=== PATIENT | female | born 1955 | race African-American/Black ===

== ENCOUNTER 2017-02-24 11:27 | Inpatient (IN) ==
[2017-02-24] MEDS ORDERED: METOPROLOL TARTRATE 5 MG/5 ML VIAL IV STA (11:50)
--- NOTE | 2017-02-24 12:09 | XRay Report ---
XR chest 1V portable Indication: Shortness of breath Comparison: None. Technique: Portable AP chest was performed. Findings: Heart size is normal. Pulmonary vasculature appears within normal limits. No significant abnormality of the mediastinal contours demonstrated. Bibasilar parenchymal opacities suggesting edema or atelectasis are present. Lungs are otherwise clear. Bones and soft tissues demonstrate moderately advanced bilateral glenohumeral joint degenerative changes. Impression: 1. Bibasilar parenchymal opacities suggesting edema or atelectasis are present. 2. Moderately advanced bilateral glenohumeral joint degenerative changes are present. 02/24/2017 12:05 PM PROCEDURE INTERPRETED AT [facility] DEPARTMENT OF RADIOLOGY Final Report Signed by: Dr. Moustapha Soler
[2017-02-24 12:27] LABS: Basophils % 0.7 % (0.0-0.8); Eosinophils # 0.2 10*3/uL (0.0-0.87); Eosinophils % 2.9 % (0.00-10.9); Immature Granulocytes % 0.2 %; Immature Granulocytes Absolute 0.01 #; Lymphocytes # 1.5 10*3/uL (1.4-4.0); Mean Corpuscular HGB Conc 32.5 GM/DL (32-36); Mean Corpuscular Hemoglobin 23 PG (27-34); Mean Corpuscular Volume 69.6 FL (87-102); Mean Platelet Volume 10.9 FL (9.6-12.0); Monocytes # 0.7 10*3/uL (0.11-0.8); Monocytes % 12.7 % (1.7-12.7); Neutrophils # 3.2 10*3/uL (1.4-7.4); Neutrophils % 56.5 % (38.7-73.9); Platelet Count 137 T/CUMM (130-400); Red Blood Count 5.75 MC/CUMM (3.8-5.5); Red Cell Distribution Width 17.5 % (9.3-17.3); White Blood Count 5.6 T/CUMM (4-12)
[2017-02-24 13:10] LABS: Alanine Aminotransferase 15 U/L (13-56); Albumin 3.5 G/DL (3.4-5.0); Alkaline Phosphatase 128 U/L (45-117); Aspartate Amino Transferase 9 U/L (0-37); Blood Urea Nitrogen 24 MG/DL (7-18); Calcium 9.1 MG/DL (8.5-10.1); Glucose 435 MG/DL (74-106); Sodium 132 MMOL/L (136-145); Total Protein 7.5 G/DL (6.4-8.3)
[2017-02-24 13:11] LABS: Osmolality,Calculated 286.5 MOS/KG (273-304); Potassium 4.5 MMOL/L (3.5-5.1); Troponin I Only < 0.015 NG/ML (0.00-0.045)
--- NOTE | 2017-02-24 13:23 | CT Report ---
CT head/brain wo con Indication: Unresponsive episode Comparison: None Technique: Multiple axial tomographic images of the brain were obtained without the use of intravenous contrast. Findings: Midline structures are nondisplaced. There is no convincing evidence of acute intracranial hemorrhage . Mild global volume loss present. Moderate periventricular and subcortical hypoattenuation noted which is nonspecific but consistent with chronic microvascular ischemic change. Demyelinating process and vasculitis less likely considerations. Moderate prominence of bilateral lateral and third ventricles. Atherosclerotic calcifications demonstrated. The visualized paranasal sinuses and bilateral mastoid air cells are predominantly clear. IMPRESSION: No acute intracranial hemorrhage demonstrated. There is moderate prominence of the bilateral lateral and third ventricles which could be related to central volume loss. However, clinical correlation to exclude normal pressure hydrocephalus is recommended. Moderate periventricular and subcortical hypoattenuation noted which is nonspecific but consistent with chronic microvascular ischemic change. Demyelinating process and vasculitis less likely considerations. The CT exam was performed using one or more of the following dose reduction techniques: Automated exposure control, adjustment of the mA and/or kV according to patient size, or use of iterative reconstruction technique. PROCEDURE INTERPRETED AT [facility] DEPARTMENT OF RADIOLOGY Final Report Signed by: Dr Yordy Santillan
[2017-02-24 14:09] LABS: Apearance,Urine CLOUDY (Clear); Bacteria,Urine Many /HPF (Few); Bilirubin,Urine Negative (Negative); Blood, Urine Small mg/dL (Negative); Glucose,Urine (UA) >=500 mg/dL (Negative); Ketones,Urine 5 mg/dL (Negative); Mucus,Urine Few /LPF (Occasional); Nitrite,Urine Negative (Negative); Protein,Urine 100 MG/DL; RBC,Urine 6 /HPF (0-4); Urine Color Amber (Yellow); Urine Specific Gravity 1.018 (1.001-1.035); WBC,Urine 189 /HPF (0-6)
[2017-02-24] MEDS ORDERED: LEVOFLOXACIN INJ 500 MG in PREMIX 1 EACH IV STA (14:16)
[2017-02-24] MEDS ORDERED: LEVOFLOXACIN INJ 100 ML IV ONE (14:30)
--- NOTE | 2017-02-24 14:54 | Emergency Department Note ---
Xavier Hewtit Brooke, am scribing for, and in the presence of, Juan Manuel Cifuentes MD 11:58. Esau Hewitt Phillip K, MD, personally performed the services described in this documentation, ascribed by [place] in my presence, and it is both accurate and complete 417 . Arrival - Arrival Chief Complaint: Arrhythmia/Palpitations Stated Complaint: pain ED Nursing Triage Note: Brought in per EMS from home with c/o increased heart rate and blood pressure. Reports has been out of home medications "for awhile" and was seen for the first time today by home health nurse. c/o generalized pain. Mode of Arrival: Stretcher Limitations: No Limitations Source: Patient, Family, RN Notes Reviewed - History of Present Illness HPI Narrative: Patient is a 61 year old female who presents to the ED with c/o elevated blood pressure and heart rate. Today was Patient's first day being evaluated by the home health nurse and the nurse told them to come to the ED. Her blood pressure during exam was 153/118. Patient is complaining of "pain all over" and says her heart feels like it it racing. She says she has also been short of breath and had a cough but denies having fever, nausea, vomiting, abdominal pain, or diarrhea. Patient's cough is productive but she says she has not looked at the mucous. Family member says Patient has an enlarged heart and spleen and cirrhosis of the liver. Patient was supposed to see a Studio Camera Operator, a few months ago, but Family says Patient never made the appointment. Patient has PMHx of arthritis, NIDDM, HTN, peripheral neuropathy, and dyslipidemia. She has an ulcer to the right foot that "busted" recently. Family says home health nurse did look at it. Patient is also bed ridden and has been "for a while." She is not a smoker. Date of Last Menstrual Period: PM Allergies/Adverse Reactions: Allergies Allergy/AdvReac Type Severity Reaction Status Date / Time No Known Allergies Allergy Verified 02/24/17 11:35 Home Medications: Home Medications Medication Instructions Recorded Confirmed Type Aspirin EC Tab 81 mg PO QAM 02/24/17 02/24/17 History Ferrous Sulfate 325 mg PO DAILY 02/24/17 02/24/17 History Labetalol Tab [Trandate Tab] 100 mg PO BID 02/24/17 02/24/17 History Lovastatin [Lovastatin] 10 mg PO DAILY 02/24/17 02/24/17 History Meloxicam 7.5 mg PO BID PRN 02/24/17 02/24/17 History Pregabalin [Lyrica] 75 mg PO BID 02/24/17 02/24/17 History glipiZIDE [Glipizide] 10 mg PO BIDAC 02/24/17 02/24/17 History Review of System - Review of System 12 point system: reviewed and no additional remarkable complaints except as stated - Review of System Constitutional: Absent: fever Respiratory: Present: cough (productive), other (shortness of breath). Absent: respiratory distress Cardiovascular: Present: other (elevated blood pressure and heart rate) Gastrointestinal: Absent: abdominal pain, nausea, vomiting, diarrhea Musculoskeletal: Present: other (hurting all over) Skin: Absent: rash Medical,Surgical,& Family Hx - Medical History Cardio: History of: Hypertension Psychological: History of: Anxiety Disorders Neurology: History of: Peripheral Neuropathy Endocrine: History of: Diabetes Mellitus (NIDDM), Dyslipidemia Musculoskeletal: History of: Musculoskeletal Problems (arthritis) - Social History Smoking Status: Never smoker Frequency of Alcohol Use: None Type of Drug Use: None Exam Vital Signs: Vital Signs Temperature 97.5 F L 02/24/17 11:27 Pulse Rate 90 02/24/17 11:55 Respiratory Rate 37 H 02/24/17 11:55 Blood Pressure 153/118 02/24/17 11:55 O2 Sat by Pulse Oximetry 99 02/24/17 11:55 - General General appearance: alert, in no apparent distress, obese - Head Head exam: Present: atraumatic, normocephalic - Eye Eye exam: Present: normal appearance, PERRL, EOMI - ENT ENT exam: Present: normal exam - Neck Neck exam: Present: normal inspection - Chest Chest inspection: Present: normal inspection, symmetric chest wall rise - Respiratory Respiratory exam: Present: rales (bibasilar) - Cardiovascular Cardiovascular exam: Present: normal rhythm, tachycardia, normal heart sounds - Abdominal Exam Abdominal exam: Present: soft, normal bowel sounds. Absent: distention, tenderness - Extremities Exam Extremities exam: Present: pedal edema (trace edema bilateral lower extremities) - Back Exam Back exam: Present: normal inspection - Neurological Exam Neurological exam: Present: alert, oriented X3 - Psychiatric Psychiatric exam: Present: normal affect, normal mood - Skin Skin exam: Present: warm, dry, other (blister to the lateral aspect of the right forefoot. There is currently no erythema or drainage.) Course Course Narrative: Admit to the hospitalist. Results - Labs CBC & BMP: 02/24/17 12:16 02/24/17 12:16 Lab Results: I have reviewed the patients labs Labs: Laboratory Tests 02/24/17 02/24/17 12:16 12:16 WBC 5.6 RBC 5.75 H Hgb 13.0 Hct 40.0 MCV 69.6 L MCH 23 L MCHC 32.5 RDW 17.5 H Plt Count 137 MPV 10.9 Neut % (Auto) 56.5 Lymph % (Auto) 27.0 [place] % (Auto) 12.7 Eos % (Auto) 2.9 Baso % (Auto) 0.7 Neut # (Auto) 3.2 Lymph # (Auto) 1.5 [place] # (Auto) 0.7 Eos # (Auto) 0.2 Baso # (Auto) 0.0 Immature Gran % 0.2 Nucleated RBC % 0.0 Immature Gran # 0.01 Nucleated RBCs # 0.00 Immature Plt Fraction 0.0 Magnesium 1.6 L Laboratory Tests 02/24/17 12:16 Sodium 132 L Potassium 4.5 Chloride 98 Carbon Dioxide 25 Anion Gap 13.5 BUN 24 H Creatinine 1.10 H GFR Calculation 97 BUN/Creatinine Ratio 21.00 H Glucose 435 H Calculated Osmolality 286.5 Calcium 9.1 Total Bilirubin 0.50 AST 9 ALT 15 Alkaline Phosphatase 128 H Troponin I < 0.015 Total Protein 7.5 Albumin 3.5 Globulin 4.0 H Albumin/Globulin Ratio 0.8 L TSH 3rd Generation 8.240 H Laboratory Tests 02/24/17 13:50 Urine Color Rehana Urine Appearance Cloudy Urine pH 5.0 Ur Specific [place] 1.018 Urine Protein 100 Urine Glucose (UA) >=500 Urine Ketones 5 Urine Blood Small Urine Nitrate Negative Urine Bilirubin Negative Urine Urobilinogen 2.0 H Urine Leukocytes Large H Urine RBC 6 Urine WBC 189 Urine WBC Clumps Many Urine Bacteria Many Urine Mucus Few Ur Culture Indicated? Results to follow Laboratory Tests 02/24/17 02/24/17 02/24/17 12:15 12:16 12:16 POC Glucose 411 H B-Natriuretic Peptide 18 Free T4 1.24 - Diagnostic Findings Procedure: Chest x-ray: report reviewed by me (Bibasilar parenchymal opacities suggesting edema or atelectasis are present. 2. Moderately advanced bilateral glenohumeral joint degenerative changes are present.), CT: report reviewed by me (CT head/brain wo con: No acute intracranial hemorrhage demonstrated. There is moderate prominence of the bilateral lateral and third ventricles which could be related to central volume loss. However, clinical correlation to exclude normal pressure hydrocephalus is recommended. Moderate periventricular and subcortical hypoattenuation noted which is nonspecific but consistent with chronic microvascular ischemic change. Demyelinating process and vasculitis is less likely considerations.) Disposition Clinical Impression: Poorly controlled diabetes mellitus, Urinary tract infection, Hypothyroid, Palpitations, Hypertension Case discussed with: patient Disposition: Still a Patient Condition: Guarded Additional Instructions: Admit to the hospitalist.
--- NOTE | 2017-02-24 15:38 | Hospitalist History & Physical ---
<Chapito Emmanuel - Last Filed: 02/24/17 15:18> Assessment and Plan (1) Poorly controlled diabetes mellitus Status: Acute Assessment and plan: Patient glucose levels noted at 411 at the time of admission. The patient and family reported that the patient has not had medication in several months. We will obtain hemoglobin A1c and start Accu-Cheks with sliding scale coverage. We will place the patient on a diabetic consistency diet. We will monitor closely during the clinical encounter. Current Visit: Yes (2) Urinary tract infection Status: Acute Assessment and plan: Urinalysis at the time of admission was significant for urinary tract infection. Urine culture was obtained. We will continue empiric antibiotic coverage and await urine culture results. Current Visit: Yes (3) Hypothyroidism Status: Acute Assessment and plan: TSH was noted at 8.24 and free T4 at 1.24. Upon review of the medical record, the patient has never been diagnosed with hypothyroidism. Will start low-dose Synthroid and monitor closely and adjust slowly. Current Visit: Yes Qualifiers: Hypothyroidism type: unspecified Qualified Code(s): E03.9 - Hypothyroidism , unspecified (4) Palpitations Status: Acute Assessment and plan: The patient has a previous diagnosis of cardiomegaly. Upon review of the medical record, previous encounters are noted. The family reported that the patient had been advised to follow-up at a learning program manager office however failed to make the appointment. Troponin at the time of encounter was negative less than 0.015; however the patient has multiple risk factors for cardiovascular disease. We will obtain a lipid panel, hemoglobin A1c, and echocardiogram. Current Visit: Yes (5) Hypertension Status: Chronic Assessment and plan: TSH was noted at 8.24 and free T4 at 1.24. Upon review of the medical record, the patient has never been diagnosed with hypothyroidism. Will start low-dose Synthroid and monitor closely and adjust slowly. Current Visit: Yes Qualifiers: Hypertension type: unspecified Qualified Code(s): I10 - Essential (primary ) hypertension (6) Medical non-compliance Status: Acute Assessment and plan: The family reports that the patient has not been seen by her primary care physician in months. In addition they reported that the patient has not had any of her prescribed medications in months. They reported that they were unable to secure transportation to meet scheduled appointments due to the patient's size. The patient is unable to travel in a car and they let the financial resources necessary to obtain ambulance transport. media services specialist and case management were consulted and present during the clinical interview. I discussed in great detail with both patient and family regarding the importance of medical compliance. Current Visit: Yes (7) Unable to function independently Status: Acute Assessment and plan: The family voiced concerns regarding the patient's current living situation. The patient lives with her sister however the sister works daily. The patient is basically bed ridden and unable to care for herself. I am concerned regarding the patient's current living situation. I have consulted social contact worker and case management to evaluate for possible long term placement at the time of discharge. I do not believe that the patient will be a candidate for rehabilitation. The family is in agreement with placement at the time of discharge. Current Visit: Yes (8) Diabetic ulcer of right foot Status: Acute Assessment and plan: Ulceration noted to the lower aspect of the right foot; with deep discoloration noted. We will consult surgery to evaluate Current Visit: Yes Qualifiers: Diabetic foot ulcer location: midfoot Diabetes mellitus type: type 2 Non- pressure ulcer stage: unspecified non-pressure ulcer stage Qualified Code(s): E11.621 - Type 2 diabetes mellitus with foot ulcer; L97.419 - Non-pressure chronic ulcer of right heel and midfoot with unspecified severity History of Present Illness Chief complaint: Arrhythmia and palpitations History of present illness: This is a very poor and unfortunate 61-year-old female that presented to the ED at [facility] by EMS for the evaluation of arrhythmias and palpitations. The patient has a long and complex medical significant for type 2 diabetes mellitus, cardiomegaly, hypertension, chronic falls, hyperlipidemia, morbid obesity, chronic neck pain, splenomegaly, cirrhosis of the liver, peripheral neuropathy, and anemia. Patient reported no significant surgical history at the time of encounter. Apparently, the patient was evaluated today by a home health nurse. The patient was assessed and was advised to present to the ED. At the time of ED presentation, the patient was grossly hypertensive with a blood pressure noted at 153/118. The family was present at bedside. They reported that the patient is bedridden and had not been seen by her primary care physician and months. In addition, the patient's family reported that the patient has not had medications in several weeks. The patient reports generalized discomfort and heart palpitations. In addition, the patient was noted to have an ulceration to her right foot in which the home health care nurse assessed today. The patient was seen and assessed at the time of ED presentation. At the time of ED presentation, the patient was noted to be grossly hypertensive with a blood pressure noted at 153/118. In addition, the patient was noted to be hyperglycemic with a blood glucose level of 411. Labs were obtained which were remarkable for red blood cell count of 5.75, magnesium 1.6, sodium 132, BUN 24, creatinine 1.10, glucose 435, calcium 9.1, alkaline phosphatase 128, and TSH 8.240. Urinalysis reported gross abnormalities urine leukocytes were large, white blood cell counts were noted at 6, urine WBCs 189, urine WC clumps many, urine bacteria many, urine mucus few. BNP was noted at 18 and free T4 1.24. Chest x-ray reported bibasilar parenchymal opacity suggesting edema or atelectasis and moderately advanced bilateral glenohumeral joint degenerative changes are present. CT head and brain reported no acute intracranial hemorrhage however there was a moderate prominence of the bilateral lateral and third ventricles which could be related to central volume loss. Incidentally, moderate periventricular and subtle cortical hypoattenuation is noted which is nonspecific but consistent with chronic microvascular ischemic change. After brief discussion with both Dr. Cifuentes and Dr. Escobar, the patient will be admitted to the hospitalist service for continuation of care. The patient's home medications have been reviewed and reconciled. CODE STATUS discussed; patient is a FULL CODE. Home Medications Medication Instructions Recorded Confirmed Type Aspirin EC Tab 81 mg PO QAM 02/24/17 02/24/17 History Ferrous Sulfate 325 mg PO DAILY 02/24/17 02/24/17 History Labetalol Tab [Trandate Tab] 100 mg PO BID 02/24/17 02/24/17 History Lovastatin [Lovastatin] 10 mg PO DAILY 02/24/17 02/24/17 History Meloxicam 7.5 mg PO BID PRN 02/24/17 02/24/17 History Pregabalin [Lyrica] 75 mg PO BID 02/24/17 02/24/17 History glipiZIDE [Glipizide] 10 mg PO BIDAC 02/24/17 02/24/17 History Allergies Allergy/AdvReac Type Severity Reaction Status Date / Time No Known Allergies Allergy Verified 02/24/17 11:35 Medical,Surgical,& Family Hx - Medical History Cardio: History of: Hypertension Psychological: History of: Anxiety Disorders Neurology: History of: Peripheral Neuropathy Endocrine: History of: Diabetes Mellitus (NIDDM), Dyslipidemia Musculoskeletal: History of: Musculoskeletal Problems (arthritis) - Social History Smoking Status: Never smoker Frequency of Alcohol Use: None Type of Drug Use: None Exam - Constitutional Vitals: Period Temp Pulse Resp BP Sys/Meadows Pulse Ox Last 24 Hr 97.5 F-97.5 F 90-136 24-37 153-153/118-118 96-99 General appearance: morbidly obese - Head Head exam: Present: normal inspection, normocephalic - Eye Eye exam: Present: EOMI Pupils: Present: MACI, normal accommodation - ENT ENT exam: Present: normal exam, normal external ear exam - Neck Neck exam: Present: normal inspection. Absent: lymphadenopathy, meningismus, thyromegaly - Respiratory Respiratory exam: Present: rales - Cardiovascular Cardiovascular exam: Present: tachycardia. Absent: carotid bruit, diastolic murmur, gallop, JVD, rubs, systolic murmur - GI/Abdominal GI/Abdominal exam: Present: normal bowel sounds, soft - Extremities Exam Extremities exam: Present: edema (+2 edema noted to bilateral lower extremity), other (Ulceration noted to the lateral aspect of the right foot) - Back Exam Back exam: Present: normal inspection - Neurological Exam Neurological exam: Present: alert, oriented X3, CN II-XII intact - Psychiatric Psychiatric exam: Present: flat affect - Skin Skin exam: Present: normal color, warm, dry Results - Labs CBC & BMP: 02/24/17 12:16 02/24/17 12:16 Lab Results: I have reviewed the past 24 hour labs <Abelardo Escobar - Last Filed: 02/24/17 16:49> History of Present Illness History of present illness: Ms. Hooker is a 61 year old female admitted to the hospital with diabetes mellitus with hyperglycemia, urinary tract infection, hypertension, morbid obesity, and home bedridden status. I have interviewed the patient, examined the patient, and reviewed all of the available laboratory tests and x-ray results. I agree with the assessment and plans as described by the nurse practitioner. Social service has been consulted for recommended intermediate placement. Exam - Constitutional Vitals: Period Temp Pulse Resp BP Sys/[place]ows Pulse Ox Last 24 Hr 97.5 F-97.5 F 90-136 24-37 153-153/118-118 96-99 Results - Labs CBC & BMP: 02/24/17 12:16 02/24/17 12:16
[2017-02-24] MEDS ORDERED: DEXTROSE 50% 25 GM/50 ML VIAL IV PRN ×2 (15:57)
[2017-02-24] MEDS ORDERED: GLUCAGON 1 MG VIAL IM PRN ×2 (15:57)
[2017-02-24] MEDS ORDERED: MAGNESIUM SULF RIDER 4 GM in PREMIX 1 EACH IV PRN (15:59)
[2017-02-24] MEDS ORDERED: MAGNESIUM SULF RIDER 2 GM in PREMIX 1 EACH IV PRN (15:59)
[2017-02-24] MEDS ORDERED: POTASSIUM CHLORIDE RIDER 10 MEQ in PREMIX 1 EACH IV PRN (15:59)
[2017-02-24 16:24] LABS: Risk Ratio 6.25; VLDL CHOLESTEROL 35.6 MG/DL
--- NOTE | 2017-02-24 16:42 | EKG Report ---
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
[2017-02-24 17:57] LABS: Albumin 3.5 G/DL (3.4-5.0); Bilirubin,Direct 0.1 MG/DL (0.0-0.20); Bilirubin,Indirect 0.4 MG/DL (0.0-1.0); Bilirubin,Total 0.5 MG/DL (0.2-1.0); Total Protein 7.6 G/DL (6.4-8.3)
[2017-02-24] MEDS: PIPERACILLIN/TAZOBACTAM 3,375 MG in SODIUM CHLORIDE 0.9% 100 ML IV SCH (18:39)
[2017-02-24] MEDS: LOVASTATIN 20 MG TABLET PO SCH (18:40)
[2017-02-24] MEDS: INSULIN REGULAR 100 UNIT/ML SUBCUT SCH ×2 (18:56→20:41)
[2017-02-24] MEDS: LABETALOL 100 MG TABLET PO SCH (20:40)
[2017-02-24] MEDS ORDERED: DEXTROSE 50% 25 GM/50 ML SYRINGE IV PRN (22:30)
[2017-02-24] MEDS ORDERED: ZALEPLON 5 MG CAPSULE PO PRN (22:43)
[2017-02-24] MEDS: IBUPROFEN 600 MG TABLET PO PRN (22:51)
[2017-02-25] MEDS: PIPERACILLIN/TAZOBACTAM 3,375 MG in SODIUM CHLORIDE 0.9% 100 ML IV SCH ×3 (02:50→16:41)
[2017-02-25] MEDS: INSULIN REGULAR 100 UNIT/ML SUBCUT SCH ×4 (09:26→21:35)
[2017-02-25] MEDS: LABETALOL 100 MG TABLET PO SCH ×2 (09:26→21:34)
[2017-02-25] MEDS: LEVOFLOXACIN INJ 500 MG in PREMIX 1 EACH IV SCH (09:27)
[2017-02-25] MEDS: IBUPROFEN 600 MG TABLET PO PRN ×2 (09:31→23:17)
--- NOTE | 2017-02-25 13:13 | General Surgery Consult Note ---
Assessment and Plan - Time spent with patient Time spent with patient: Greater than 30 minutes (1) Poorly controlled diabetes mellitus Status: Acute Assessment and plan: 61-year-old -[place] female with multiple medical problems admitted by the hospitalist on 02/24/2017 with dysrhythmia and palpitations with UTI. Patient is unable to ambulate and has been noncompliant with her medications. Patient has a diabetic foot wound on her lateral right foot and in between the fourth and fifth toes. There is no signs of infection and no need for surgery at this time. Will consult Dorota WCJuliana for local wound care. Dr. Gonsales will see and examine patient and further recommendations to follow. Current Visit: Yes (2) Urinary tract infection Status: Acute Current Visit: Yes (3) Hypothyroidism Status: Acute Current Visit: Yes Qualifiers: Hypothyroidism type: unspecified Qualified Code(s): E03.9 - Hypothyroidism , unspecified (4) Palpitations Status: Acute Current Visit: Yes (5) Hypertension Status: Chronic Current Visit: Yes Qualifiers: Hypertension type: unspecified Qualified Code(s): I10 - Essential (primary ) hypertension (6) Medical non-compliance Status: Acute Current Visit: Yes (7) Unable to function independently Status: Acute Current Visit: Yes (8) Diabetic ulcer of right foot Status: Acute Current Visit: Yes Qualifiers: Diabetic foot ulcer location: midfoot Diabetes mellitus type: type 2 Non- pressure ulcer stage: unspecified non-pressure ulcer stage Qualified Code(s): E11.621 - Type 2 diabetes mellitus with foot ulcer; L97.419 - Non-pressure chronic ulcer of right heel and midfoot with unspecified severity History of Present Illness Chief complaint: Right foot pain History of present illness: Ms. Hooker is a 61 year old -[place] female with multiple medical problems and noncompliance with medications admitted by the hospitalist service on 02/24/2017 with arrhythmias and palpitations and UTI. Patient has been bedridden and was being evaluated by her home health nurse and found to be grossly hypertensive. Patient's family reporting that patient has not followed up with her primary care physician in months and she has ran out of all of her medications and not renewed them. She is being evaluated for prison status. Dr. Gonsales was consulted for a diabetic foot wound on her right lateral foot. Upon exam she has what appears to be an old blister on the lateral foot and in between the fourth and fifth toes with a little discoloration. There is no erythema or tenderness or no signs of infection. She does have diminished pulses. Home Medications Medication Instructions Recorded Confirmed Type Aspirin EC Tab 81 mg PO QAM 02/24/17 02/24/17 History Ferrous Sulfate 325 mg PO DAILY 02/24/17 02/24/17 History Labetalol Tab [Trandate Tab] 100 mg PO BID 02/24/17 02/24/17 History Lovastatin [Lovastatin] 10 mg PO DAILY 02/24/17 02/24/17 History Meloxicam 7.5 mg PO BID PRN 02/24/17 02/24/17 History Pregabalin [Lyrica] 75 mg PO BID 02/24/17 02/24/17 History glipiZIDE [Glipizide] 10 mg PO BIDAC 02/24/17 02/24/17 History Allergies Allergy/AdvReac Type Severity Reaction Status Date / Time No Known Allergies Allergy Verified 02/24/17 11:35 Medical,Surgical,& Family Hx - Medical History Cardio: History of: Hypertension Psychological: History of: Anxiety Disorders Neurology: History of: Peripheral Neuropathy Endocrine: History of: Diabetes Mellitus (NIDDM), Dyslipidemia Musculoskeletal: History of: Musculoskeletal Problems (arthritis) - Social History Smoking Status: Never smoker Frequency of Alcohol Use: None Type of Drug Use: None - Constitutional Constitutional: Present: as per HPI Exam - Constitutional Vitals: Period Temp Pulse Resp BP Sys/Meadows Pulse Ox Last 24 Hr 96.4 F-98.3 F 81-124 20-24 113-176/55-136 94-100 Exam: 61-year-old -[place] female, no acute distress, alert oriented Chest clear CV regular rate and rhythm Abdomen obese, nontender Extremities right lateral foot with healing diabetic foot wound with some mild discoloration that extends up in between the fourth and fifth toes. No erythema , no purulence, or induration. Diminished pulses Results - Labs CBC & BMP: 02/24/17 12:16 02/24/17 12:16 Lab Results: I have reviewed the past 24 hour labs
[2017-02-25] MEDS ORDERED: SKIN HEALING OINT (AQUAPHOR) 50 GM TUBE TOP PRN (15:49)
[2017-02-25] MEDS: LOVASTATIN 20 MG TABLET PO SCH (16:41)
--- NOTE | 2017-02-25 19:56 | ECHO Report ---
Maegan Hooker Exam Date: 02/25/2017 09:11 Referring Physician: Technologist: Anika Kim RDCS Age: 61 Ht (in): 66 Wt (lb): 400 Gender: F Exam Location: [facility] Echo Indications: Cardiac arrhythmia, unspecified, Palpitations, NIDDM, UTI, Essential (primary) hypertension, Morbid (severe) obesity due to excess calories, Cardiomegaly, Diabetic ulcer - right foot, Hyperlipidemia, unspecified BP: 150 / 118 HR: 92 Rhythm: Sinus Technical Quality: IMPRESSIONS Normal left ventricular cavity size. Mild concentric left ventricular hypertrophy. Normal systolic function, left ventricular ejection fraction estimated at 60%. Grade 1 diastolic dysfunction. Mild biatrial enlargement. Mild right ventricular enlargement, with normal systolic function. No significant valvular abnormalities. MEASUREMENTS (Male / Female) Normal Values 2D ECHO LV Diastolic Diameter PLAX 4.1 cm 4.2 - 5.9 / 3.9 - 5.3 cm LV Systolic Diameter PLAX 2.7 cm LV Fractional Shortening PLAX 34.4 % IVS Diastolic Thickness 1.1 cm 0.6 - 1.0 / 0.6 - 0.9 cm LVPW Diastolic Thickness 1.1 cm 0.6 - 1.0 / 0.6 - 0.9 cm RV Internal Dim ED PLAX 2.7 cm Aortic Root Diameter 2.7 cm LA Systolic Diameter LX 3.9 cm 3.0 - 4.0 / 2.7 - 3.8 cm DOPPLER TR Peak Velocity 194.0 cm/s TR Peak Gradient 15.1 mmHg FINDINGS Left Ventricle Normal left ventricular cavity size. Mild concentric left ventricular hypertrophy. Normal systolic function, left ventricular ejection fraction estimated at 60%. Grade 1 diastolic dysfunction. Right Ventricle The right ventricle is mildly dilated, with normal systolic function. Right Atrium The right atrium is mildly enlarged. Left Atrium The left atrium is mildly enlarged. Mitral Valve Morphologically normal mitral valve without significant stenosis or prolapse. There is no mitral regurgitation. Aortic Valve Morphologically normal aortic valve without significant sclerosis or stenosis. There is no aortic regurgitation. Tricuspid Valve Morphologically normal tricuspid valve. Trace tricuspid valve regurgitation. Normal pulmonary pressure. Pulmonic Valve Morphologically normal pulmonic valve without significant stenosis. There is no pulmonic regurgitation. Pericardium Normal pericardium without effusion. Prominent epicardial fat. Aorta Normal ascending aorta dimension. Brandon Reilly (Electronically Signed) Final Date: 25 February 2017 19:55
[2017-02-26] MEDS: PIPERACILLIN/TAZOBACTAM 3,375 MG in SODIUM CHLORIDE 0.9% 100 ML IV SCH ×3 (02:15→17:03)
--- NOTE | 2017-02-26 08:44 | Case Mgmt Physician Query Form ---
TB Signs and Symptoms Screening ([place]) INSTRUCTIONS: To be completed annually on residents/staff with a significant Tuberculin Skin Test (TST) upon admission/hire or a prior significant TST. To be completed on all staff at hire. Please respond to each listed symptom with an (X) in either the "YES" or "NO" box. Do you currently have any of the following symptoms: YES NO ( ) ( x) A cough If yes, is it: ( ) Productive ( ) Non- productive ( ) (x ) Hemoptysis (spitting up blood) ( ) (x ) Chest pains ( ) ( x) Weight Loss ( ) (x ) Fever ( ) (x ) Night Sweats ( ) ( x) Weakness ( ) (x ) Loss of Appetite ( ) ( x) Difficulty Breathing If you answered YES" to any of the above questions, how long have symptoms been present? Comments: PJ
[2017-02-26] MEDS: LEVOFLOXACIN INJ 500 MG in PREMIX 1 EACH IV SCH (09:31)
[2017-02-26] MEDS: LABETALOL 100 MG TABLET PO SCH ×2 (09:31→20:40)
[2017-02-26] MEDS: INSULIN REGULAR 100 UNIT/ML SUBCUT SCH ×4 (09:31→20:40)
--- NOTE | 2017-02-26 09:55 | Hospitalist Progress Note ---
Assessment and Plan - Time spent with patient Time spent with patient: Greater than 30 minutes (Pt is new to me. Chart reviewed by me today.) (1) Urinary tract infection Status: Acute Assessment and plan: Continue IV levaquin and Zosyn, f/u urine culture results Current Visit: Yes (2) Poorly controlled diabetes mellitus Status: Acute Assessment and plan: Consult dietitian., Continue insulin. f/u HbA1c result Current Visit: Yes (3) Hypothyroidism Status: Acute Assessment and plan: Continue synthroid. Need Endocrinology appointment in the nearly future. Current Visit: Yes Qualifiers: Hypothyroidism type: unspecified Qualified Code(s): E03.9 - Hypothyroidism , unspecified (4) Hypertension Status: Chronic Current Visit: Yes Qualifiers: Hypertension type: unspecified Qualified Code(s): I10 - Essential (primary ) hypertension (5) Medical non-compliance Status: Acute Assessment and plan: Educated pt on being compliant with her medical treatment regimen. Current Visit: Yes (6) Unable to function independently Status: Acute Current Visit: Yes (7) Diabetic ulcer of right foot Status: Acute Assessment and plan: Continue local wound care. Current Visit: Yes Qualifiers: Diabetic foot ulcer location: midfoot Diabetes mellitus type: type 2 Non- pressure ulcer stage: unspecified non-pressure ulcer stage Qualified Code(s): E11.621 - Type 2 diabetes mellitus with foot ulcer; L97.419 - Non-pressure chronic ulcer of right heel and midfoot with unspecified severity Hospitalist: Subjective Interval history: No overnight acute event. Feeling better. On IV antibiotics for UTI, insulin sliding scale for poorly controlled DM, Synthroid for Hypothyroidism. Educated pt on being compliant with her medical treatment regimen. GS signed off for diabetic ulcer of right foot. Exam - Constitutional Vitals: Period Temp Pulse Resp BP Sys/Meadows Pulse Ox Last 24 Hr 96.2 F-98.3 F 78-98 20-22 113-134/54-78 93-98 Exam: General: lying in bed supine. AAOx3. HEENT: AT NC EOMI PERRLA Normal lips and gum. Lungs: B/L CTA Abd: +BS NT ND Skin: Diabetic foot ulcer on lateral right foot in between 4th and 5th toes. Neuro: AAOx3 Results - Labs CBC & BMP: 02/24/17 12:16 02/24/17 12:16
[2017-02-26] MEDS: IBUPROFEN 600 MG TABLET PO PRN ×2 (11:02→17:03)
--- NOTE | 2017-02-26 11:53 | Hospitalist Progress Note ---
Assessment and Plan - Time spent with patient Time spent with patient: Greater than 30 minutes (1) Acute cystitis with hematuria Status: Acute Assessment and plan: Still has lower abd tenderness. Will need to initiate CT study for cause of acute cystitis. ?stone, ?PID. Continue IV antibiotics for now. Need to wait for culture result to adjust antibiotics usage. Culture result is not ready yet. Current Visit: Yes (2) Poorly controlled diabetes mellitus Status: Acute Assessment and plan: Consult dietitian., Continue insulin. f/u HbA1c result Need to adjust insulin dosage to control hyperglycemia. Pt is at high risk of developing hyperosmolar hyperglycemia coma. Pt is also at high risk of readmitting to hospital. Need intense DM treatment and education to be done prior to discharge. Current Visit: Yes (3) Hypothyroidism Status: Acute Assessment and plan: Continue synthroid. Need Endocrinology appointment in the nearly future. Current Visit: Yes Qualifiers: Hypothyroidism type: unspecified Qualified Code(s): E03.9 - Hypothyroidism , unspecified (4) Hypertension Status: Chronic Current Visit: Yes Qualifiers: Hypertension type: unspecified Qualified Code(s): I10 - Essential (primary ) hypertension (5) Medical non-compliance Status: Acute Assessment and plan: Educated pt on being compliant with her medical treatment regimen. Current Visit: Yes (6) Unable to function independently Status: Acute Assessment and plan: PT eval. May need image study to identify the etiology. If still no improvement, will need to consult Neurology. Current Visit: Yes (7) Diabetic ulcer of right foot Status: Acute Assessment and plan: Continue local wound care. Current Visit: Yes Qualifiers: Diabetic foot ulcer location: midfoot Diabetes mellitus type: type 2 Non- pressure ulcer stage: unspecified non-pressure ulcer stage Qualified Code(s): E11.621 - Type 2 diabetes mellitus with foot ulcer; L97.419 - Non-pressure chronic ulcer of right heel and midfoot with unspecified severity Hospitalist: Subjective Interval history: No overnight acute event. Feeling better. But still has abd pain especially lower abd pain. Pt aslo feel weak and not able to ambulate. On IV antibiotics for UTI, insulin sliding scale for poorly controlled DM, Synthroid for Hypothyroidism. Educated pt on being compliant with her medical treatment regimen. GS signed off for diabetic ulcer of right foot. Glucose level is 400 this morning. UA showed UTI and culture results pending. Exam - Constitutional Vitals: Period Temp Pulse Resp BP Sys/Meadows Pulse Ox Last 24 Hr 96.2 F-98.3 F 78-98 20-22 113-134/54-78 93-98 Exam: General: lying in bed supine. AAOx3. HEENT: AT NC EOMI PERRLA Normal lips and gum. Lungs: B/L CTA Abd: +BS ND, tenderness at lower abd area. Skin: Diabetic foot ulcer on lateral right foot in between 4th and 5th toes. Neuro: AAOx3 Results - Labs CBC & BMP: 02/24/17 12:16 02/24/17 12:16
[2017-02-26] MEDS ORDERED: TUBERCULIN SKIN TEST 0.1 ML SYRINGE INTRADERM ONE (12:00)
[2017-02-26] MEDS: LOVASTATIN 20 MG TABLET PO SCH (17:03)
[2017-02-27] MEDS: PIPERACILLIN/TAZOBACTAM 3,375 MG in SODIUM CHLORIDE 0.9% 100 ML IV SCH ×3 (00:12→17:23)
[2017-02-27] MEDS: IBUPROFEN 600 MG TABLET PO PRN ×3 (00:20→17:39)
[2017-02-27] MEDS: LABETALOL 100 MG TABLET PO SCH ×2 (08:49→21:32)
[2017-02-27] MEDS: INSULIN REGULAR 100 UNIT/ML SUBCUT SCH ×4 (08:49→21:33)
--- NOTE | 2017-02-27 09:09 | Hospitalist Progress Note ---
<Chapito Emmanuel - Last Filed: 02/27/17 09:06> Assessment and Plan (1) Poorly controlled diabetes mellitus Status: Acute Assessment and plan: Patient glucose levels noted at 411 at the time of admission. The patient and family reported that the patient has not had medication in several months. We will obtain hemoglobin A1c and start Accu-Cheks with sliding scale coverage. We will place the patient on a diabetic consistency diet. We will monitor closely during the clinical encounter. 02/27-hemoglobin A1c was noted at 11.3. The patient's blood glucose levels are poorly controlled. We will start Lantus 25 units nightly and start Humalog 10 units 3 times daily with each meal. We will monitor blood glucose levels closely and adjust as needed. Current Visit: Yes (2) Urinary tract infection Status: Acute Assessment and plan: Urinalysis at the time of admission was significant for urinary tract infection. Urine culture was obtained. We will continue empiric antibiotic coverage and await urine culture results. 02/27-culture and sensitivity reported E. coli which is sensitive to Zosyn. We will continue Zosyn as previously ordered. Current Visit: Yes (3) Hypothyroidism Status: Acute Assessment and plan: TSH was noted at 8.24 and free T4 at 1.24. Upon review of the medical record, the patient has never been diagnosed with hypothyroidism. Will start low-dose Synthroid and monitor closely and adjust slowly. Current Visit: Yes Qualifiers: Hypothyroidism type: unspecified Qualified Code(s): E03.9 - Hypothyroidism , unspecified (4) Palpitations Status: Acute Assessment and plan: The patient has a previous diagnosis of cardiomegaly. Upon review of the medical record, previous encounters are noted. The family reported that the patient had been advised to follow-up at a sole stapler welt office however failed to make the appointment. Troponin at the time of encounter was negative less than 0.015; however the patient has multiple risk factors for cardiovascular disease. We will obtain a lipid panel, hemoglobin A1c, and echocardiogram. Current Visit: Yes (5) Hypertension Status: Chronic Assessment and plan: TSH was noted at 8.24 and free T4 at 1.24. Upon review of the medical record, the patient has never been diagnosed with hypothyroidism. Will start low-dose Synthroid and monitor closely and adjust slowly. Current Visit: Yes Qualifiers: Hypertension type: unspecified Qualified Code(s): I10 - Essential (primary ) hypertension (6) Medical non-compliance Status: Acute Assessment and plan: The family reports that the patient has not been seen by her primary care physician in months. In addition they reported that the patient has not had any of her prescribed medications in months. They reported that they were unable to secure transportation to meet scheduled appointments due to the patient's size. The patient is unable to travel in a car and they let the financial resources necessary to obtain ambulance transport. patient services specialist and case management were consulted and present during the clinical interview. I discussed in great detail with both patient and family regarding the importance of medical compliance. Current Visit: Yes (7) Unable to function independently Status: Acute Assessment and plan: The family voiced concerns regarding the patient's current living situation. The patient lives with her sister however the sister works daily. The patient is basically bed ridden and unable to care for herself. I am concerned regarding the patient's current living situation. I have consulted social services assistant and case management to evaluate for possible care home placement at the time of discharge. I do not believe that the patient will be a candidate for rehabilitation. The family is in agreement with placement at the time of discharge. Current Visit: Yes (8) Diabetic ulcer of right foot Status: Acute Assessment and plan: Ulceration noted to the lower aspect of the right foot; with deep discoloration noted. We will consult surgery to evaluate 02/27-wound care in progress per surgery recommendation. Current Visit: Yes Qualifiers: Diabetic foot ulcer location: midfoot Diabetes mellitus type: type 2 Non- pressure ulcer stage: unspecified non-pressure ulcer stage Qualified Code(s): E11.621 - Type 2 diabetes mellitus with foot ulcer; L97.419 - Non-pressure chronic ulcer of right heel and midfoot with unspecified severity Hospitalist: Subjective Interval history: Patient seen and examined; chart reviewed. No significant overnight events. We will consult case management for swing bed or long-term placement. Exam - Constitutional Vitals: Period Temp Pulse Resp BP Sys/Meadows Pulse Ox Last 24 Hr 96.6 F-98.2 F 81-99 20-22 133-143/60-89 94-98 General appearance: morbidly obese - Head Head exam: Present: normal inspection, normocephalic - Eye Eye exam: Present: EOMI, conjunctival injection Pupils: Present: MACI, normal accommodation - ENT ENT exam: Present: normal exam, normal external ear exam, normal oropharynx - Neck Neck exam: Present: normal inspection. Absent: lymphadenopathy, meningismus, thyromegaly - Respiratory Respiratory exam: Present: clear to auscultation bilaterally. Absent: rales, rhonchi, stridor, wheezes - Cardiovascular Cardiovascular exam: Present: regular rate and rhythm. Absent: carotid bruit, diastolic murmur, gallop, JVD, rubs, systolic murmur - GI/Abdominal GI/Abdominal exam: Present: normal bowel sounds, soft - Extremities Exam Extremities exam: Present: normal inspection, normal capillary refill, edema (+ 2 edema noted to bilateral lower extremity.) - Back Exam Back exam: Present: normal inspection - Neurological Exam Neurological exam: Present: alert, oriented X3, CN II-XII intact - Psychiatric Psychiatric exam: Present: depressed - Skin Skin exam: Present: normal color, warm, dry Results - Labs CBC & BMP: 02/24/17 12:16 02/24/17 12:16 Lab Results: I have reviewed the past 24 hour labs <Abelardo Escobar - Last Filed: 02/28/17 07:10> Hospitalist: Subjective Interval history: I agree with the assessment and plans as outlined by the nurse practitioner. I have seen and examined the patient today. I have reviewed all pertinent laboratory test results. Exam - Constitutional Vitals: Period Temp Pulse Resp BP Sys/Meadows Pulse Ox Last 24 Hr 96.9 F-978.4 F 82-97 20-22 126-144/65-91 93-99 Results - Labs CBC & BMP: 02/28/17 02:58 02/28/17 02:58
[2017-02-27] MEDS: INSULIN LISPRO 100 UNIT/ML SUBCUT SCH ×2 (12:21→17:24)
[2017-02-27] MEDS: LOVASTATIN 20 MG TABLET PO SCH (17:23)
[2017-02-27] MEDS ORDERED: INSULIN GLARGINE 100 UNIT/ML SUBCUT SCH (21:00)
[2017-02-28] MEDS: IBUPROFEN 600 MG TABLET PO PRN ×2 (01:10→09:04)
[2017-02-28] MEDS: PIPERACILLIN/TAZOBACTAM 3,375 MG in SODIUM CHLORIDE 0.9% 100 ML IV SCH ×3 (01:12→16:50)
[2017-02-28 03:16] LABS: Basophils % 0.6 % (0.0-0.8); Eosinophils # 0.2 10*3/uL (0.0-0.87); Eosinophils % 6.4 % (0.00-10.9); Hematocrit 32.9 VOL% (35.7-47.0); Hemoglobin 10.3 GM/DL (12.0-16.0); Immature Granulocytes % 0.3 %; Immature Granulocytes Absolute 0.01 #; Lymphocytes # 1.1 10*3/uL (1.4-4.0); Lymphocytes % 30.6 % (21.3-54.2); Mean Corpuscular HGB Conc 31.3 GM/DL (32-36); Mean Corpuscular Hemoglobin 23 PG (27-34); Mean Corpuscular Volume 71.8 FL (87-102); Mean Platelet Volume 11.3 FL (9.6-12.0); Monocytes # 0.5 10*3/uL (0.11-0.8); Monocytes % 13.4 % (1.7-12.7); Neutrophils # 1.7 10*3/uL (1.4-7.4); Neutrophils % 48.7 % (38.7-73.9); Platelet Count 114 T/CUMM (130-400); Red Blood Count 4.58 MC/CUMM (3.8-5.5); Red Cell Distribution Width 17.5 % (9.3-17.3); White Blood Count 3.4 T/CUMM (4-12)
[2017-02-28 03:47] LABS: Albumin 2.8 G/DL (3.4-5.0); Bilirubin,Total 0.5 MG/DL (0.2-1.0); Calcium 8.6 MG/DL (8.5-10.1); Magnesium 1.9 MG/DL (1.8-2.4); Osmolality,Calculated 289.7 MOS/KG (273-304); Phosphorous 4.6 MG/DL (2.5-4.9); Potassium 4.3 MMOL/L (3.5-5.1); Total Protein 6.2 G/DL (6.4-8.3)
[2017-02-28] MEDS: LEVOTHYROXINE 50 MCG TABLET PO SCH (09:03)
[2017-02-28] MEDS: LABETALOL 100 MG TABLET PO SCH ×2 (09:04→21:18)
[2017-02-28] MEDS: INSULIN LISPRO 100 UNIT/ML SUBCUT SCH ×3 (09:07→16:50)
[2017-02-28] MEDS: INSULIN REGULAR 100 UNIT/ML SUBCUT SCH ×4 (09:08→21:18)
--- NOTE | 2017-02-28 09:44 | Hospitalist Progress Note ---
<Chapito Emmanuel - Last Filed: 02/28/17 09:42> Assessment and Plan (1) Poorly controlled diabetes mellitus Status: Acute Assessment and plan: Patient glucose levels noted at 411 at the time of admission. The patient and family reported that the patient has not had medication in several months. We will obtain hemoglobin A1c and start Accu-Cheks with sliding scale coverage. We will place the patient on a diabetic consistency diet. We will monitor closely during the clinical encounter. 02/27-hemoglobin A1c was noted at 11.3. The patient's blood glucose levels are poorly controlled. We will start Lantus 25 units nightly and start Humalog 10 units 3 times daily with each meal. We will monitor blood glucose levels closely and adjust as needed. 02/28-blood glucose levels remain markedly elevated despite the start of Lantus and Humalog on yesterday. We will increase Lantus to 40 units at the hour of sleep and continue Humalog 3 times daily with each meal. Spoke with both patient and family regarding the need to adhere to dietary restrictions in order to obtain optimal blood glucose levels. Current Visit: Yes (2) Urinary tract infection Status: Acute Assessment and plan: Urinalysis at the time of admission was significant for urinary tract infection. Urine culture was obtained. We will continue empiric antibiotic coverage and await urine culture results. 02/27-culture and sensitivity reported E. coli which is sensitive to Zosyn. We will continue Zosyn as previously ordered. Current Visit: Yes (3) Hypothyroidism Status: Acute Assessment and plan: TSH was noted at 8.24 and free T4 at 1.24. Upon review of the medical record, the patient has never been diagnosed with hypothyroidism. Will start low-dose Synthroid and monitor closely and adjust slowly. Current Visit: Yes Qualifiers: Hypothyroidism type: unspecified Qualified Code(s): E03.9 - Hypothyroidism , unspecified (4) Palpitations Status: Acute Assessment and plan: The patient has a previous diagnosis of cardiomegaly. Upon review of the medical record, previous encounters are noted. The family reported that the patient had been advised to follow-up at a old testament professor office however failed to make the appointment. Troponin at the time of encounter was negative less than 0.015; however the patient has multiple risk factors for cardiovascular disease. We will obtain a lipid panel, hemoglobin A1c, and echocardiogram. Current Visit: Yes (5) Hypertension Status: Chronic Assessment and plan: TSH was noted at 8.24 and free T4 at 1.24. Upon review of the medical record, the patient has never been diagnosed with hypothyroidism. Will start low-dose Synthroid and monitor closely and adjust slowly. Current Visit: Yes Qualifiers: Hypertension type: unspecified Qualified Code(s): I10 - Essential (primary ) hypertension (6) Medical non-compliance Status: Acute Assessment and plan: The family reports that the patient has not been seen by her primary care physician in months. In addition they reported that the patient has not had any of her prescribed medications in months. They reported that they were unable to secure transportation to meet scheduled appointments due to the patient's size. The patient is unable to travel in a car and they let the financial resources necessary to obtain ambulance transport. business services representative and case management were consulted and present during the clinical interview. I discussed in great detail with both patient and family regarding the importance of medical compliance. Current Visit: Yes (7) Unable to function independently Status: Acute Assessment and plan: The family voiced concerns regarding the patient's current living situation. The patient lives with her sister however the sister works daily. The patient is basically bed ridden and unable to care for herself. I am concerned regarding the patient's current living situation. I have consulted social insurance analyst and case management to evaluate for possible [facility] placement at the time of discharge. I do not believe that the patient will be a candidate for rehabilitation. The family is in agreement with placement at the time of discharge. Current Visit: Yes (8) Diabetic ulcer of right foot Status: Acute Assessment and plan: Ulceration noted to the lower aspect of the right foot; with deep discoloration noted. We will consult surgery to evaluate 02/27-wound care in progress per surgery recommendation. Current Visit: Yes Qualifiers: Diabetic foot ulcer location: midfoot Diabetes mellitus type: type 2 Non- pressure ulcer stage: unspecified non-pressure ulcer stage Qualified Code(s): E11.621 - Type 2 diabetes mellitus with foot ulcer; L97.419 - Non-pressure chronic ulcer of right heel and midfoot with unspecified severity Hospitalist: Subjective Interval history: Patient seen and examined. Chart reviewed. No significant overnight events reported per staff. Blood glucose levels remain markedly elevated despite start of Humalog prior to meals and nighttime Lantus dose. Spoke with both patient and family regarding the need to adhere to dietary restrictions in order to achieve optimal blood glucose control. Exam - Constitutional Vitals: Period Temp Pulse Resp BP Sys/Meadows Pulse Ox Last 24 Hr 96.9 F-978.4 F 78-97 18-22 126-142/65-83 93-98 General appearance: morbidly obese - Head Head exam: Present: normal inspection, normocephalic - Eye Eye exam: Present: EOMI. Absent: conjunctival injection Pupils: Present: MACI, normal accommodation - ENT ENT exam: Present: normal exam, normal external ear exam, normal oropharynx - Neck Neck exam: Present: normal inspection. Absent: lymphadenopathy, meningismus, tenderness, thyromegaly - Respiratory Respiratory exam: Present: clear to auscultation bilaterally. Absent: rales, rhonchi, stridor, wheezes - Cardiovascular Cardiovascular exam: Present: regular rate and rhythm. Absent: carotid bruit, diastolic murmur, gallop, JVD, rubs, systolic murmur - GI/Abdominal GI/Abdominal exam: Present: normal bowel sounds, soft - Extremities Exam Extremities exam: Present: normal inspection, normal capillary refill, edema (+ 2 edema noted to bilateral lower extreme), other (Diabetic ulceration noted to the right foot outer aspect) - Back Exam Back exam: Present: normal inspection - Neurological Exam Neurological exam: Present: alert, oriented X3, CN II-XII intact - Psychiatric Psychiatric exam: Present: flat affect - Skin Skin exam: Present: normal color, warm, dry Results - Labs CBC & BMP: 02/28/17 02:58 02/28/17 02:58 Lab Results: I have reviewed the past 24 hour labs <Abelardo Escobar - Last Filed: 02/28/17 10:37> Hospitalist: Subjective Interval history: Patient was hospitalized with diabetes mellitus and hyperglycemia. She had been incompletely compliant with her medications. Glargine insulin was restarted and she was placed on sliding scale insulin coverage. Today her glucose is 235. She will require increased dose of glargine to 40 units subcutaneous nightly. She has a previous history of cardiomegaly. An echocardiogram demonstrated normal left ventricular systolic function with LVEF 60%. Exam - Constitutional Vitals: Period Temp Pulse Resp BP Sys/Meadows Pulse Ox Last 24 Hr 96.9 F-978.4 F 78-97 18- 126-142/65-83 93-98 Results - Labs CBC & BMP: 02/28/17 02:58 02/28/17 02:58 <Myron Albright - Last Filed: 02/28/17 11:01> Assessment and Plan (1) Microcytic anemia Status: Acute Assessment and plan: This is quite reminiscent of iron deficiency. She will go check ferritin on the ferritin is low she definitely will need iron supplementation but also check iron on an hour binding capacity. Will base our decision on the level for toileting. And a ferritin of less than 100 should be considered to be low island in this situation given the acute phase illness. Current Visit: Yes Exam - Constitutional Vitals: Period Temp Pulse Resp BP Sys/Meadows Pulse Ox Last 24 Hr 96.9 F-978.4 F 78-97 18- 126-142/65-83 93-98 Results - Labs CBC & BMP: 02/28/17 02:58 02/28/17 02:58
[2017-02-28 10:48] LABS: % Iron Saturation 11.9 % (18-50)
[2017-02-28] MEDS: LOVASTATIN 20 MG TABLET PO SCH (16:49)
[2017-02-28] MEDS: INSULIN GLARGINE 100 UNIT/ML SUBCUT SCH (21:19)
[2017-03-01] MEDS: PIPERACILLIN/TAZOBACTAM 3,375 MG in SODIUM CHLORIDE 0.9% 100 ML IV SCH ×3 (00:38→17:05)
[2017-03-01 06:12] LABS: Basophils % 0.6 % (0.0-0.8); Eosinophils # 0.2 10*3/uL (0.0-0.87); Eosinophils % 7.2 % (0.00-10.9); Hematocrit 32.9 VOL% (35.7-47.0); Hemoglobin 10.2 GM/DL (12.0-16.0); Immature Granulocytes % 0.3 %; Immature Granulocytes Absolute 0.01 #; Lymphocytes # 0.9 10*3/uL (1.4-4.0); Lymphocytes % 26.6 % (21.3-54.2); Mean Corpuscular Hemoglobin 23 PG (27-34); Mean Corpuscular Volume 72.8 FL (87-102); Mean Platelet Volume 10.8 FL (9.6-12.0); Monocytes # 0.5 10*3/uL (0.11-0.8); Neutrophils # 1.6 10*3/uL (1.4-7.4); Neutrophils % 50.3 % (38.7-73.9); Platelet Count 105 T/CUMM (130-400); Red Blood Count 4.52 MC/CUMM (3.8-5.5); Red Cell Distribution Width 17.7 % (9.3-17.3); White Blood Count 3.2 T/CUMM (4-12)
[2017-03-01 06:42] LABS: Albumin 2.8 G/DL (3.4-5.0); Bilirubin,Total 0.7 MG/DL (0.2-1.0); Calcium 8.7 MG/DL (8.5-10.1); Magnesium 2.1 MG/DL (1.8-2.4); Osmolality,Calculated 291.1 MOS/KG (273-304); Phosphorous 4.4 MG/DL (2.5-4.9); Total Protein 6.3 G/DL (6.4-8.3)
[2017-03-01] MEDS: LABETALOL 100 MG TABLET PO SCH ×2 (09:24→21:22)
[2017-03-01] MEDS: LEVOTHYROXINE 50 MCG TABLET PO SCH (09:24)
[2017-03-01] MEDS: INSULIN REGULAR 100 UNIT/ML SUBCUT SCH ×4 (09:25→21:22)
[2017-03-01] MEDS: INSULIN LISPRO 100 UNIT/ML SUBCUT SCH ×3 (09:25→17:05)
--- NOTE | 2017-03-01 11:55 | Hospitalist Progress Note ---
Assessment and Plan (1) Microcytic anemia Status: Acute Assessment and plan: Patient has profound iron deficiency anemia by iron indices on serum check. I will give her Venofer 500 mg today she will need to have a repeat dose of Venofer 2 weeks later. Side of loss of blood is unknown we will check stool for Hemoccult. As mentioned in the note this patient has chronic arthritis that could be the source of the anemia due to inadequate absorption due to low hepcin biologic activity. Current Visit: Yes (2) UTI (urinary tract infection) Status: Acute Assessment and plan: Patient has completed treatment IV antibiotics should be just Current Visit: Yes (3) Debility Status: Acute Assessment and plan: Patient needs SNF placement continue physical therapy and Occupational Therapy. I feel better after her hemoglobin comes up. Current Visit: Yes Hospitalist: Subjective Interval history: Patient has been seen interviewed and examined and chart has been reviewed. She states that she is feeling a lot better now. She has been on IV Zosyn for a UTI. Think she is in retail end of the treatment at this time and she been planned for senior care facility placement. The snf that she will plan to go to after today has stated that they are not going to accept her. office services clerk time to make arrangements for an alternative. This patient is also severely iron deficient she has a ferritin of only 38.6 total iron of 37 she will be given IV iron supplementation here prior to discharge. Loss site is unknown we will check stool for Hemoccult. Has chronic arthritis of undefined nature. That could be the source of deficiency. Is also noted to be thrombocytopenic besides the anemia and relative neutropenia. This setting one wonders about possibility of MDS being also involved. She will get iron sucrose (Venofer) 500 mg a day and 500 mg 2 weeks later. Exam - Constitutional Vitals: Period Temp Pulse Resp BP Sys/Meadows Pulse Ox Last 24 Hr 96.8 F-98.9 F 79-84 17-22 115-136/61-78 94-98 General appearance: morbidly obese - Head Head exam: Present: normocephalic, atraumatic - Eye Eye exam: Present: EOMI Pupils: Present: MACI - Respiratory Respiratory exam: Present: clear to auscultation bilaterally - Cardiovascular Cardiovascular exam: Present: regular rate and rhythm - GI/Abdominal GI/Abdominal exam: Present: normal bowel sounds, soft - Extremities Exam Extremities exam: Present: other (Cannot walk) - Neurological Exam Neurological exam: Present: alert, oriented X3, CN II-XII intact - Psychiatric Psychiatric exam: Present: normal affect, normal mood - Skin Skin exam: Present: normal color, warm, dry, other (Noted leg edema) Results - Labs CBC & BMP: 03/01/17 05:42 03/01/17 05:42 Lab Results: I have reviewed the past 24 hour labs (Ferritin of 38.6 total iron of 37 TIBC of 111.9.)
[2017-03-01] MEDS: LACTULOSE 20 GM/30 ML UDCUP PO SCH (13:53)
[2017-03-01] MEDS: INSULIN GLARGINE 100 UNIT/ML SUBCUT SCH (21:21)
[2017-03-01] MEDS: LOVASTATIN 20 MG TABLET PO SCH (21:23)
[2017-03-01] MEDS: IBUPROFEN 600 MG TABLET PO PRN (22:37)
[2017-03-02] MEDS: PIPERACILLIN/TAZOBACTAM 3,375 MG in SODIUM CHLORIDE 0.9% 100 ML IV SCH ×2 (01:12→12:12)
[2017-03-02] MEDS: diphenhydrAMINE CAP 25 MG CAPSULE PO PRN ×2 (01:13→12:12)
[2017-03-02] MEDS: LEVOTHYROXINE 50 MCG TABLET PO SCH (06:31)
--- NOTE | 2017-03-02 07:58 | General Surgery Progress Note ---
Assessment and Plan (1) Diabetic ulcer of right foot Status: Acute Assessment and plan: This wound is clean. Follow-up with the outpatient wound care center after discharge. No further recommendations at this time. There is no evidence of infection of this wound. Current Visit: Yes Qualifiers: Diabetic foot ulcer location: midfoot Diabetes mellitus type: type 2 Non- pressure ulcer stage: unspecified non-pressure ulcer stage Qualified Code(s): E11.621 - Type 2 diabetes mellitus with foot ulcer; L97.419 - Non-pressure chronic ulcer of right heel and midfoot with unspecified severity Subjective Patient reports: Present: no new complaints, afebrile Exam - Constitutional Vitals: Period Temp Pulse Resp BP Sys/Meadows Pulse Ox Last 24 Hr 96.6 F-98.3 F 83-95 18-22 120-181/56-91 94-98 General appearance: no acute distress, morbidly obese - Head Head exam: Present: normal inspection, normocephalic - Eye Eye exam: Present: EOMI. Absent: scleral icterus Pupils: Present: MACI - ENT ENT exam: Present: normal exam Mouth exam: Present: normal external inspection, normal voice - Neck Neck exam: Present: normal inspection, trachea midline - Respiratory Respiratory exam: Present: clear to auscultation bilaterally. Absent: accessory muscle use, chest wall tenderness - Cardiovascular Cardiovascular exam: Present: RRR. Absent: systolic murmur, tachycardia - GI/Abdominal GI/Abdominal exam: Present: normal bowel sounds, soft. Absent: tenderness, rebound - Extremities Exam Extremities exam: Present: other (Dry wound right lateral foot without erythema or drainage. Nontender) - Back Exam Back exam: Present: normal inspection - Neurological Exam Neurological exam: Present: alert, oriented X3 Speech: Present: normal - Skin Skin exam: Present: normal color, warm Results - Labs CBC & BMP: 03/01/17 05:42 03/01/17 05:42
[2017-03-02] MEDS ORDERED: LACTULOSE 20 GM/30 ML UDCUP PO SCH (09:00)
[2017-03-02] MEDS ORDERED: IRON SUCROSE 500 MG in SODIUM CHLORIDE 0.9% 100 ML IV ONE (09:30)
[2017-03-02] MEDS: INSULIN LISPRO 100 UNIT/ML SUBCUT SCH ×2 (09:31→12:12)
[2017-03-02] MEDS: INSULIN REGULAR 100 UNIT/ML SUBCUT SCH ×2 (09:31→12:12)
[2017-03-02] MEDS: LACTULOSE 20 GM/30 ML UDCUP PO SCH (09:33)
[2017-03-02] MEDS: LABETALOL 100 MG TABLET PO SCH (09:33)
--- NOTE | 2017-03-02 09:59 | Discharge Summary ---
<Myron Albright - Last Filed: 03/02/17 09:48> Hospital Course - Hospital Course Hospital Course: Ms. Hooker is a 61 year old female who presented to the [facility] ED on 02/24/2017 via EMS for further evaluation of arrhythmias and palpitations. At the time of ED presentation, the patient was noted to be grossly hypertensive with a blood pressure noted at 153/118. In addition, the patient was noted to be hyperglycemic with a blood glucose level of 411. Labs were obtained which were remarkable for red blood cell count of 5.75, magnesium 1.6, sodium 132, BUN 24, creatinine 1.10, glucose 435, calcium 9.1, alkaline phosphatase 128, and TSH 8.240. Urinalysis reported gross abnormalities urine leukocytes were large, white blood cell counts were noted at 6, urine WBCs 189, urine WC clumps many, urine bacteria many, urine mucus few. The patient was admitted to the hospital medicine service for continuation of care with poorly controlled diabetes, hypothyroidism, UTI, palpitations, HTN, medical noncompliance and diabetic ulcer of the right foot. She was started on sliding scale insulin with accu-cheks. Hemoglobin A1c was noted to be 11.3%. Empiric IV antibiotics were initiated while the results of the UC were pending. Urine grew E. coli. She was continued on Zosyn and IV levaquin. Echo revealed LV function with mild concentric LV hypertrophy and EF estimated at 60% with no significant valvular abnormalities. Upon consultation from general surgery, the patient was not found to have any significant infection of the ulcer on the lateral aspect of her right foot and therefore required no follow-up wound care. The remainder of the patient's course was relatively uncomplicated, highlighted by management of her UTI and chronic conditions. At this time, her blood glucose is stable at 156 and her blood pressure is being adequately managed on labetalol 100 mg PO BID. She has reached maximum benefit from hospitalization and is stable for discharge at this time. The patient will be discharged with the following new medications in addition to her current regimen : Lactulose 20 gm PO daily, Levothyroxine 50 mcg PO daily at 0700, Lantus 40 unit SQ QHS, and lovastatin 20 mg PO daily with supper. She can follow up outpatient with general surgery for wound care management. Follow up with PCP in 1-2 weeks. Diagnosis - Discharge Diagnosis (1) Microcytic anemia Status: Acute (2) UTI (urinary tract infection) Status: Acute (3) Debility Status: Acute Discharge Plan - Discharge Data Disposition: Disch/Xfer to [facility] Hos/Snf Condition at Discharge: Stable Discharge Diet: diabetic diet, heart healthy Activity: increase activity as tolerated Hygiene: other (Needs help with activities of daily living 08/02) Weight Bearing at Discharge: non-weight bearing Contact your physician if you experience:: fever over 101, Nausea/Vomiting, Shortness of breath, Bleeding - Discharge Medications New Lactulose Liquid [Chronulac] 20 gm PO DAILY #210 ml Levothyroxine Tab [Synthroid Tab] 50 mcg PO DAILY@0700 #30 tablet Insulin Glargine [Lantus] 40 unit SUBCUT BEDTIME #1000 unit Lovastatin [Mevacor] 20 mg PO DAILY W/SUPPER #30 tablet Continue Pregabalin [Lyrica] 75 mg PO BID glipiZIDE [Glipizide] 10 mg PO BIDAC Ferrous Sulfate 325 mg PO DAILY Labetalol Tab [Trandate Tab] 100 mg PO BID Aspirin EC Tab 81 mg PO QAM Meloxicam 7.5 mg PO BID PRN PRN Reason: Pain Discontinued Lovastatin [Lovastatin] 10 mg PO DAILY - Follow Up or Referral - Forms/Instructions Exam - Constitutional Vitals: Period Temp Pulse Resp BP Sys/Meadows Pulse Ox Last 24 Hr 96.6 F-98.3 F 83-95 18-22 120-181/56-91 94-98 General appearance: no acute distress, morbidly obese - Head Head exam: Present: normocephalic, atraumatic - Eye Eye exam: Present: EOMI Pupils: Present: MACI - ENT ENT exam: Present: normal exam - Respiratory Respiratory exam: Present: clear to auscultation bilaterally - Cardiovascular Cardiovascular exam: Present: regular rate and rhythm - Extremities Exam Extremities exam: Present: other (Bedbound, morbid obesity with severe physical deconditioning) - Neurological Exam Neurological exam: Present: alert, oriented X3, CN II-XII intact - Psychiatric Psychiatric exam: Present: normal affect, normal mood - Skin Skin exam: Present: normal color, warm, dry Discharge Results Labs on day of discharge: Labs from last 24 hours 03/02/17 03/02/17 03/01/17 07:32 00:22 19:55 POC Glucose 156 H 194 H 168 H 03/01/17 03/01/17 15:41 11:08 POC Glucose 201 H 233 H DS: Provider Date of admission: 02/24/17 15:56 Primary care physician: . No PCP Attending physician on admission: Abelardo Escobar Consults: 02/24/17 16:03 Consult to Case Mgmt/Social Srvs [CONS] Routine Reason for Case Mgmt/Social Srvs: Rehab Other Swingbed/SNF/Jail Consult to Occupational Therapy [CONS] Routine Reason for Occupational Therapy: Evaluate and Treat Consult to Physical Therapy [CONS] Routine Reason for Physical Therapy: Evaluate and Treat Start Therapy: Tomorrow 02/24/17 16:04 Consult to Physician [CONS] Routine Comment: Consulting Provider: Jam Gonsales When should Consulting Provider be notified: In am Consult Notification Comment: pt has been seen by Dr. Gonsales per Doctors reports. 02/25/17 13:17 Consult to Wound Care - [place] [CONS] Routine Reason for Wound Care: Wound Care Management Consult Comment: orders for her feet Discharging clinician: Myron Albright MD <Nicholas Templeton - Last Filed: 03/02/17 11:26> Hospital Course - Time spent with patient Time with patient DS: Greater than 30 minutes DS: Provider Expected date of discharge: 03/02/17
[2017-03-02 12:16] VITALS: BP 140/74
== END 2017-03-02 14:20 | DRG 638 ==
LOC: EDUNIT# → EDBD → N.ED 11:27 → SUATTDRO 15:56 → N.EDINP 16:50 → N.2E 17:19
PROVIDERS: ATTEND Internal Medicine Infectious Disease

== ENCOUNTER 2017-04-05 07:51 | Inpatient (IN) ==
[2017-04-05 08:27] LABS: Basophils % 0.4 % (0.0-0.8); Eosinophils # 0.1 10*3/uL (0.0-0.87); Eosinophils % 1.1 % (0.00-10.9); Hematocrit 32.8 VOL% (35.7-47.0); Hemoglobin 10.2 GM/DL (12.0-16.0); Immature Granulocytes % 0.4 %; Immature Granulocytes Absolute 0.02 #; Lymphocytes # 1.2 10*3/uL (1.4-4.0); Lymphocytes % 22.7 % (21.3-54.2); Mean Corpuscular HGB Conc 31.1 GM/DL (32-36); Mean Corpuscular Hemoglobin 24 PG (27-34); Mean Corpuscular Volume 75.9 FL (87-102); Mean Platelet Volume 10.6 FL (9.6-12.0); Monocytes # 0.9 10*3/uL (0.11-0.8); Monocytes % 17.1 % (1.7-12.7); NRBC # 0.02 10*3/uL; Neutrophils # 3.1 10*3/uL (1.4-7.4); Neutrophils % 58.3 % (38.7-73.9); Platelet Count 108 T/CUMM (130-400); Red Blood Count 4.32 MC/CUMM (3.8-5.5); Red Cell Distribution Width 19.8 % (9.3-17.3); White Blood Count 5.3 T/CUMM (4-12)
[2017-04-05] MEDS ORDERED: PIPERACILLIN/TAZOBACTAM 3,375 MG in SODIUM CHLORIDE 0.9% 100 ML IV SCH (08:30)
--- NOTE | 2017-04-05 08:30 | Emergency Department Note ---
Miladys Hewitt Rolonda, am scribing for, and in the presence of, Errol Thomas MD 08: 18. Martha Hewitt James D, MD, personally performed the services described in this documentation, ascribed by Juan Daniel Hook in my presence, and it is both accurate and complete 826 . Arrival - Arrival ED Nursing Triage Note: pt was sent from [facility] for low o2 sats and sob. pt has a fever. unknown how long this has been going on. pt had o2 sats of 67 on 3l per nc at assisted Mode of Arrival: Stretcher Limitations: No Limitations Source: Patient, Old Records Reviewed, RN Notes Reviewed - History of Present Illness HPI Narrative: Pt is a 61 y/o female who was brought to ED via EMS from [facility] for further evaluation of SOB. Pt has a PMHx of HTN and DM. 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 At time of triage pt's temperature was 101.9 and a BP of 139/60. Sister states that pt has been SOB for days. Sister states that pt was verbal yesterday, has not been eating, and complained of chills. She confirms that pt has been coughing w/ production. No other complaint/pain in ED. Onset (ago): day(s) Consistency: constant Severity: moderate Severity scale (1-10): 5 Allergies/Adverse Reactions: Allergies Allergy/AdvReac Type Severity Reaction Status Date / Time No Known Allergies Allergy Verified 02/24/17 11:35 Home Medications: Home Medications Medication Instructions Recorded Confirmed Type Aspirin EC Tab 81 mg PO QAM 02/24/17 02/24/17 History Ferrous Sulfate 325 mg PO DAILY 02/24/17 02/24/17 History Labetalol Tab [Trandate Tab] 100 mg PO BID 02/24/17 02/24/17 History Meloxicam 7.5 mg PO BID PRN 02/24/17 02/24/17 History Pregabalin [Lyrica] 75 mg PO BID 02/24/17 02/24/17 History glipiZIDE [Glipizide] 10 mg PO BIDAC 02/24/17 02/24/17 History Insulin Glargine [Lantus] 40 unit SUBCUT BEDTIME #1000 unit 03/02/17 Rx Lactulose Liquid [Chronulac] 20 gm PO DAILY #210 ml 03/02/17 Rx Levothyroxine Tab [Synthroid Tab] 50 mcg PO DAILY@0700 #30 tablet 03/02/17 Rx Lovastatin [Mevacor] 20 mg PO DAILY W/SUPPER #30 tablet 03/02/17 Rx Review of System - Review of System 12 point system: reviewed and no additional remarkable complaints except as stated - Review of System Constitutional: Present: chills, fever Eyes: Present: discharge Head/Ears/Nose/Throat: Absent: earache Respiratory: Present: cough, respiratory distress (SOB) Cardiovascular: Absent: chest pain Gastrointestinal: Absent: abdominal pain Genitourinary female: Absent: dysuria Musculoskeletal: Absent: arm pain Skin: Absent: rash Neurological: Absent: headache Psychiatric: Absent: anxiety Endocrine: Absent: cold intolerance Hematological/Lymphatic: Absent: easy bleeding Allergic/Immunologic: Absent: facial swelling Medical,Surgical,& Family Hx - Medical History Cardio: History of: Hypertension Psychological: History of: Anxiety Disorders Endocrine: History of: Diabetes Mellitus (NIDDM), Dyslipidemia, Thyroid Disorder Musculoskeletal: History of: Musculoskeletal Problems (arthritis) Hematology: History of: Anemia Other: History of: Miscellaneous Medical Problems (morbid obesity) - Social History Smoking Status: Never smoker Frequency of Alcohol Use: None Type of Drug Use: None Exam Vital Signs: Vital Signs Temperature 101.9 F H 04/05/17 07:57 Pulse Rate 119 H 04/05/17 09:00 Respiratory Rate 32 H 04/05/17 09:00 Blood Pressure 140/58 04/05/17 09:00 O2 Sat by Pulse Oximetry 91 L 04/05/17 09:00 GENERAL: This is a chronically ill-appearing, slightly lethargic, morbidly obese white female in no apparent distress. VITAL SIGNS: Reviewed HEENT: Head is atraumatic and normocephalic. Pupils are equal round react to light. Extraocular movements are intact. Oropharynx is benign with moist mucous membranes. NECK: Neck is soft and supple without tenderness. There are no masses. There is no lymphadenopathy. LUNGS: Lungs are clear to auscultation. Chest rises symmetrically. There is no chest wall tenderness. CV: Heart is regular rate and rhythm without murmurs rubs or gallops. ABDOMEN: Abdomen is soft, nontender to palpation. There are no abdominal abnormal masses palpated. There is no organomegaly. Bowel sounds are present and active. SKIN: Skin is warm and dry. No rash. EXTREMITIES: Patient has full range of motion without tenderness. There is no pedal edema. NEUROLOGIC: Lethargic white female Cranial nerves II through XII are intact. Motor is 5 over 5 in all extremities bilaterally. Deep tendon reflexes are 2+ and bilaterally equal. Course Course Narrative: Patient was given Zosyn while in the emergency department along with D50 - Consultations Consultation #1: Discussed with hospitalist. Patient be admitted to their service. Time: 09:49 Results - Labs CBC & BMP: 04/05/17 08:12 04/05/17 08:12 Lab Results: I have reviewed the patients labs Labs: Laboratory Tests 04/05/17 08:12 Lactic Acid 0.9 - EKG EKG results: interpreted by ERMD - Impressions EKG: Sinus tachycardia with a rate of 129, left anterior fascicular block. - Diagnostic Findings Procedure: Chest x-ray: image reviewed by me (Minimal right sided infiltrate) Critical Care Time Critical Care Time: Yes Disposition Clinical Impression: Altered mental status, Pneumonia, SIRS (systemic inflammatory response syndrome ), Diabetes mellitus, Diabetes mellitus with hypoglycemia Case discussed with: patient Disposition: Still a Patient Condition: Guarded
[2017-04-05 08:55] LABS: Apearance,Urine Slightly Hazy (Clear); Bilirubin,Urine Negative (Negative); Blood, Urine Small mg/dL (Negative); Glucose,Urine (UA) Negative (Negative); Ketones,Urine 5 mg/dL (Negative); Mucus,Urine Occasional /LPF (Occasional); Nitrite,Urine Negative (Negative); Protein,Urine Negative; RBC,Urine 1 /HPF (0-4); Squamous Epithelial Cell,Urine Occasional /HPF (0-10); Urine Color Yellow (Yellow); Urine Specific Gravity 1.011 (1.001-1.035); Urine Urobilinogen < 2.0 EU/DL (0.2-1.0); WBC,Urine 1 /HPF (0-6)
[2017-04-05 08:58] LABS: Band Neutrophils 5 % (0-10); Eosinophils 1 % (0-10); Hypochromasia 1+; Lymphocytes 25 % (20-55); Microcytosis 1+; Segmented Neutrophils 55 % (50-85); Total Cells Counted 100
[2017-04-05 08:59] LABS: Ovalocytes Slight; Platelet Estimate Adequate
[2017-04-05 09:00] LABS: Albumin 2.8 G/DL (3.4-5.0); Atypical Lymphocytes Few; Bilirubin,Total 0.9 MG/DL (0.2-1.0); Calcium 8.5 MG/DL (8.5-10.1); Osmolality,Calculated 280.4 MOS/KG (273-304); Potassium 4.8 MMOL/L (3.5-5.1); Total Protein 6.5 G/DL (6.4-8.3)
--- NOTE | 2017-04-05 09:06 | XRay Report ---
XR chest 1V portable Indication: Dyspnea Comparison: Chest x-ray February 24, 2017 Technique: Single frontal view of the chest. Findings: Moderate cardiomegaly. Hazy opacification throughout the right mid and upper lung as well as the left lower lung suspicious for pulmonary edema or pneumonia. Visualized osseous and surrounding soft tissue structures appear grossly unchanged. IMPRESSION: As above. PROCEDURE INTERPRETED AT [facility] DEPARTMENT OF RADIOLOGY Final Report Signed by: Dr Yordy Santillan
--- NOTE | 2017-04-05 09:52 | EKG Report ---
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
[2017-04-05] MEDS ORDERED: DEXTROSE 50% 25 GM/50 ML SYRINGE IV ONE (09:54)
--- NOTE | 2017-04-05 10:22 | Hospitalist History & Physical ---
Addendum entered and electronically signed by Elmira Rosales NP 04/05/17 16:34: Capillary Refill less than 2. Original Note: Assessment and Plan - Time spent with patient Time spent with patient: Greater than 30 minutes (1) Pneumonia Status: Acute Assessment and plan: Admit 04/05/17 on monitored bed IV fluids - gentle hydration Antibiotics - Zosyn and vancomycin Duonebs PRN anti-emetics PRN antipyretics check a1c initiate sliding scale protocol and diabetic diet Will discuss with Dr Albright for further recommendations with care. Current Visit: Yes (2) Diabetes mellitus with hypoglycemia Status: Acute Current Visit: Yes (3) SIRS (systemic inflammatory response syndrome) Status: Acute Current Visit: Yes History of Present Illness Chief complaint: shortness of breath, fever 101.9 History of present illness: Ms. Hooker is a 61 year old black female PMHx very obese, HTN, DM, Arthritis, ? CVA (family was told that she may have had a stroke in the past) presented to the ED from [facility] for further evaluation of shortness of breath, fever reported as 102.0. Patient reports chills x2 days. [place] any nausea, vomiting, cough, or chest pain. IN ED: WBC 5.3, H&H stable. Electrolytes WNL. BUN 23, creatinine 1.0, Lactic Acid 0.9, Urinalysis negative for infection. CXR: cardiomegaly, hazy opacification throughout the right mid and upper lung, left lower lung suspicious for pulmonary edema or pneumonia. After discussion with Dr Thomas in the ED and Dr Albright with [facility], it was agreed to admit patient for further evaluation and treatment. Home medications to be reviewed and reconciliation to follow. Code Status discussed and patient and family confirm she wishes to remain a DNR code status. Home Medications Medication Instructions Recorded Confirmed Type Aspirin EC Tab 81 mg PO QAM 02/24/17 04/05/17 History Ferrous Sulfate 325 mg PO QAM 02/24/17 04/05/17 History Labetalol Tab [Trandate Tab] 100 mg PO BID 02/24/17 04/05/17 History Meloxicam 7.5 mg PO Q12H PRN 02/24/17 04/05/17 History Pregabalin [Lyrica] 75 mg PO BID 02/24/17 04/05/17 History glipiZIDE [Glipizide] 10 mg PO BIDAC 02/24/17 04/05/17 History Insulin Glargine [Lantus] 40 unit SUBCUT BEDTIME #1000 unit 03/02/17 04/05/17 Rx Levothyroxine Tab [Synthroid Tab] 50 mcg PO DAILY@0700 #30 tablet 03/02/1704/05 Rx Lovastatin [Mevacor] 20 mg PO DAILY W/SUPPER #30 tablet 03/02/17 04/05/17 Rx Acetaminophen Tab [Tylenol Tab] 650 mg PO Q4H PRN 04/05/17 04/05/17 History HYDROcodone/ACETAMIN 7.5-325 1 tablet PO BIDX7 04/05/17 04/05/17 History [[place] 7.5-325] Insulin Regular [HumuLIN R] 0 unit SUBCUT BID 04/05/17 04/05/17 History Lactulose Liquid [Chronulac] 30 ml PO QAM 04/05/17 04/05/17 History Loratadine [Claritin] 10 mg PO QDX21 04/05/17 04/05/17 History Multivitamin [One Daily 1 each PO QAM 04/05/17 04/05/17 History Multivitamin] Zinc Oxide [Zinc Oxide 40% Oint] 1 applic TOP Q8H PRN 04/05/17 04/05/17 History diphenhydrAMINE CAP [Benadryl Cap] 25 mg PO Q6H PRN 04/05/17 04/05/17 History Allergies Allergy/AdvReac Type Severity Reaction Status Date / Time No Known Allergies Allergy Verified 02/24/17 11:35 Medical,Surgical,& Family Hx - Medical History Cardio: History of: Hypertension Psychological: History of: Anxiety Disorders Endocrine: History of: Diabetes Mellitus (NIDDM), Dyslipidemia, Thyroid Disorder Rheumatology: History of;: Rheumatological Problems (arthritis) Musculoskeletal: History of: Musculoskeletal Problems (arthritis) Hematology: History of: Anemia Other: History of: Miscellaneous Medical Problems (morbid obesity) - Surgical History Surgical History: noncontributory - Social History Smoking Status: Never smoker Frequency of Alcohol Use: None Type of Drug Use: None Marital Status: Single Lives With:: [facility] Functional capacity: bed bound 12 point system: reviewed and no additional remarkable complaints except as stated - Constitutional Constitutional: Present: chills, fever(s) - Cardiovascular Cardiovascular: Present: dyspnea. Absent: chest pain at rest, chest pain with activity, edema Exam - Constitutional Vitals: Period Temp Pulse Resp BP Sys/[place] Pulse Ox Last 24 Hr 101.9 F-101.9 F 119-135 24-33 128-147/23-70 91-98 General appearance: no acute distress, morbidly obese - Head Head exam: Present: normal inspection - Eye Eye exam: Present: EOMI Pupils: Present: MACI - Neck Neck exam: Present: normal inspection. Absent: thyromegaly - Respiratory Respiratory exam: Present: rales - GI/Abdominal GI/Abdominal exam: Present: normal bowel sounds, soft. Absent: firm, guarding, tenderness, rebound - Extremities Exam Extremities exam: Present: normal inspection. Absent: edema - Neurological Exam Neurological exam: Present: alert, oriented X3 - Psychiatric Psychiatric exam: Present: normal affect, normal mood. Absent: agitated, anxious - Skin Skin exam: Present: normal color, warm, dry Results - Labs CBC & BMP: 04/05/17 08:12 04/05/17 08:12 Lab Results: I have reviewed the past 24 hour labs Labs: Lactic Acid 0.9 Glucose 65 (will monitor closely and initiate diet and sliding scale. - Diagnostic Findings Procedure: Chest x-ray: report reviewed by me (moderate cardiomegaly, hazy opacification throughout the right mid and upper lung as well as the left lower lung suspicious for pulmonary edema or pneumonia) Sepsis - Sepsis Classification of Sepsis: Sepsis Possible / Suspected infection from: pneumonia - Physical Exam Physical Exam: Awake. alert and oriented to person and place bed bound patient from [facility] (morbidly obese) Temp 101.9, HR 130, RR 24, 128/63 WBC 5.3, Lactic acid 0.9 - Physical Exam Respiratory exam: rales Cardiovascular exam: tachycardia Skin exam: normal color
[2017-04-05] MEDS ORDERED: PIPERACILLIN/TAZOBACTAM 3,375 MG in SODIUM CHLORIDE 0.9% 100 ML IV ONE (10:41)
[2017-04-05] MEDS ORDERED: DEXTROSE 50% 25 GM/50 ML SYRINGE IV PRN (10:41)
[2017-04-05] MEDS ORDERED: GLUCAGON 1 MG VIAL IM PRN (10:41)
[2017-04-05] MEDS ORDERED: ACETAMINOPHEN 325 MG TABLET PO PRN (10:41)
[2017-04-05] MEDS ORDERED: PIPERACILLIN/TAZOBACTAM 3,375 MG VIAL IV ONE (11:14)
[2017-04-05] MEDS: ALBUTEROL/IPRATROPIUM 3 ML NEB RESP TX SCH ×2 (12:11→19:56)
[2017-04-05] MEDS: INSULIN LISPRO 100 UNIT/ML SUBCUT SCH ×3 (15:49→23:31)
[2017-04-05] MEDS: SODIUM CHLORIDE 0.9% 1,000 ML IV SCH ×2 (15:49→15:50)
[2017-04-05] MEDS: VANCOMYCIN INJ 1,750 MG in SODIUM CHLORIDE 0.9% 500 ML IV SCH (17:12)
[2017-04-05] MEDS: ENOXAPARIN 40 MG/0.4 ML SYRINGE SUBCUT SCH (17:13)
[2017-04-05] MEDS: MORPHINE 2 MG/1 ML SYRINGE IV PRN (20:20)
[2017-04-05] MEDS: PIPERACILLIN/TAZOBACTAM 3,375 MG in SODIUM CHLORIDE 0.9% 100 ML IV SCH (20:25)
[2017-04-06] MEDS: ALBUTEROL/IPRATROPIUM 3 ML NEB RESP TX SCH ×4 (00:55→20:07)
[2017-04-06] MEDS: PIPERACILLIN/TAZOBACTAM 3,375 MG in SODIUM CHLORIDE 0.9% 100 ML IV SCH ×3 (03:35→20:58)
[2017-04-06] MEDS: VANCOMYCIN INJ 1,750 MG in SODIUM CHLORIDE 0.9% 500 ML IV SCH ×2 (04:45→17:37)
[2017-04-06] MEDS: MORPHINE 2 MG/1 ML SYRINGE IV PRN (06:40)
[2017-04-06] MEDS: SODIUM CHLORIDE 0.9% 1,000 ML IV SCH ×2 (06:42→20:07)
[2017-04-06 06:48] LABS: Basophils % 0.2 % (0.0-0.8); Eosinophils # 0.3 10*3/uL (0.0-0.87); Eosinophils % 5.8 % (0.00-10.9); Hematocrit 28.8 VOL% (35.7-47.0); Hemoglobin 8.7 GM/DL (12.0-16.0); Immature Granulocytes % 0.2 %; Immature Granulocytes Absolute 0.01 #; Lymphocytes # 1.4 10*3/uL (1.4-4.0); Lymphocytes % 28.2 % (21.3-54.2); Mean Corpuscular HGB Conc 30.2 GM/DL (32-36); Mean Corpuscular Hemoglobin 23 PG (27-34); Mean Platelet Volume 12.1 FL (9.6-12.0); Monocytes # 0.8 10*3/uL (0.11-0.8); Monocytes % 16.9 % (1.7-12.7); Neutrophils # 2.4 10*3/uL (1.4-7.4); Neutrophils % 48.7 % (38.7-73.9); Platelet Count 118 T/CUMM (130-400); Red Blood Count 3.79 MC/CUMM (3.8-5.5); White Blood Count 4.9 T/CUMM (4-12)
[2017-04-06 07:24] LABS: Band Neutrophils 1 % (0-10); Eosinophils 9 % (0-10); Hypochromasia 1+; Lymphocytes 26 % (20-55); Microcytosis 1+; Nucleated Red Blood Cells 1 (0-5); Ovalocytes Slight; Platelet Estimate Decreased; Segmented Neutrophils 48 % (50-85); Total Cells Counted 100
[2017-04-06 07:32] LABS: Osmolality,Calculated 286.3 MOS/KG (273-304); Potassium 4.7 MMOL/L (3.5-5.1)
[2017-04-06] MEDS: INSULIN LISPRO 100 UNIT/ML SUBCUT SCH ×4 (08:52→21:00)
[2017-04-06] MEDS: PANTOPRAZOLE 40 MG TABLET PO SCH (08:54)
--- NOTE | 2017-04-06 11:08 | Hospitalist Progress Note ---
Assessment and Plan (1) Abdominal pain Status: Acute Assessment and plan: Patient verbalized right lower quadrant abdominal pain. Right lower quadrant abdominal pain tenderness noted upon gentle palpation. We will order CT abdomen and pelvis with oral contrast. NG tube has been ordered for the introduction of contrast. Current Visit: Yes Qualifiers: Abdominal location: right lower quadrant Qualified Code(s): R10.31 - Right lower quadrant pain (2) Pneumonia Status: Acute Assessment and plan: We will continue empiric antibiotics coverage as previously ordered. Will recheck chest x-ray in a.m. Current Visit: Yes Hospitalist: Subjective Interval history: Patient seen and examined; chart reviewed. No significant overnight events reported per staff. Patient reported intense abdominal pain this a.m.. Right lower quadrant tenderness noted upon gentle palpation. We will order CT abdomen and pelvis with oral contrast to evaluate. Exam - Constitutional Vitals: Period Temp Pulse Resp BP Sys/M[place] Pulse Ox Last 24 Hr 97.3 F-101.7 F 105-119 17-35 116-183/60-98 90-98 General appearance: mild distress, morbidly obese - Head Head exam: Present: normal inspection, normocephalic, atraumatic - Eye Eye exam: Present: EOMI. Absent: conjunctival injection Pupils: Present: MACI, normal accommodation - ENT ENT exam: Present: normal exam, normal external ear exam, normal oropharynx - Neck Neck exam: Present: normal inspection. Absent: lymphadenopathy, meningismus, tenderness, thyromegaly - Respiratory Respiratory exam: Present: clear to auscultation bilaterally. Absent: rales, rhonchi, stridor, wheezes - Cardiovascular Cardiovascular exam: Present: regular rate and rhythm. Absent: carotid bruit, diastolic murmur, gallop, JVD, rubs, systolic murmur - GI/Abdominal GI/Abdominal exam: Present: hypoactive bowel sounds, tenderness (Right lower quadrant tenderness), soft - Extremities Exam Extremities exam: Present: normal inspection, normal capillary refill, edema (+ 3 pitting edema noted to bilateral lower extremity) - Back Exam Back exam: Present: normal inspection - Neurological Exam Neurological exam: Present: alert, oriented X3, CN II-XII intact - Psychiatric Psychiatric exam: Present: normal affect, normal mood - Skin Skin exam: Present: normal color, warm Results - Labs CBC & BMP: 04/06/17 06:02 04/06/17 06:02 Lab Results: I have reviewed the past 24 hour labs
--- NOTE | 2017-04-06 15:52 | CT Report ---
History is generalized abdominal pain 100 cc Omni 350 utilized. Visualization significantly limited by body habitus and streak artifact with poor [id number] ratio toxically the upper abdomen The nonspecific up to 1.3 cm the bilateral axillary nodes partially visualized There is consolidation with air bronchograms in both visualized lung bases more pronounced on the left. There is a a small left pleural effusion There is prominent splenomegaly. Enlarged spleen displaces the left kidney anterior medially. There is a 2 cm hypodensity in the left kidney likely cyst but not well characterized. There are several up to 1 cm periaortic nodes. No larger than 1 cm nodes seen. A 2 cm nodule adjacent to the spleen likely accessory splenic tissue. Images some tiny accessory splenic tissue anterior the spleen isn't well. Pelvis: Small umbilical region hernia contains fat. No significant free fluid or focal inflammatory changes seen in the pelvis. Impression: 1. Prominent splenomegaly 2. Consolidation in both visualized lung bases more pronounced in the left. Chest x-ray follow-up necessary to exclude underlying mass 3. Nonspecific borderline sized axillary and upper abdominal nodes described above The CT exam was performed using one or more of the following dose reduction techniques: Automated exposure control, adjustment of the mA and/or kV according to patient size, or use of iterative reconstruction technique. PROCEDURE INTERPRETED AT [facility] DEPARTMENT OF RADIOLOGY Final Report Signed by: Dr. Caitlin Law
--- NOTE | 2017-04-06 16:39 | Hospitalist Progress Note ---
Hospitalist: Subjective Interval history: Patient seen and examined and chart reviewed. 61-year-old female was admitted with abdominal pain and found to have bilateral lower lobe pneumonia. She also had acute on chronic hypoxemic respiratory failure on oxygen. She is on IV vancomycin and Zosyn, continue. Exam - Constitutional Vitals: Period Temp Pulse Resp BP Sys/Meadows Pulse Ox Last 24 Hr 96.7 F-101.7 F 104-118 18-35 113-161/54-98 90-100 Results - Labs CBC & BMP: 04/06/17 06:02 04/06/17 06:02
[2017-04-06] MEDS: ENOXAPARIN 40 MG/0.4 ML SYRINGE SUBCUT SCH (20:58)
[2017-04-07] MEDS: ALBUTEROL/IPRATROPIUM 3 ML NEB RESP TX SCH ×4 (00:05→19:11)
[2017-04-07] MEDS: VANCOMYCIN INJ 1,750 MG in SODIUM CHLORIDE 0.9% 500 ML IV SCH ×2 (04:56→23:38)
[2017-04-07] MEDS: SODIUM CHLORIDE 0.9% 1,000 ML IV SCH ×2 (04:58→20:17)
[2017-04-07] MEDS: MORPHINE 2 MG/1 ML SYRINGE IV PRN (05:05)
[2017-04-07] MEDS: PIPERACILLIN/TAZOBACTAM 3,375 MG in SODIUM CHLORIDE 0.9% 100 ML IV SCH ×3 (05:06→23:22)
[2017-04-07 06:16] LABS: Eosinophils # 0.2 10*3/uL (0.0-0.87); Eosinophils % 6.7 % (0.00-10.9); Hematocrit 29.1 VOL% (35.7-47.0); Hemoglobin 8.9 GM/DL (12.0-16.0); Immature Granulocytes % 0.3 %; Immature Granulocytes Absolute 0.01 #; Lymphocytes # 0.8 10*3/uL (1.4-4.0); Mean Corpuscular HGB Conc 30.6 GM/DL (32-36); Mean Corpuscular Hemoglobin 23 PG (27-34); Mean Corpuscular Volume 76.4 FL (87-102); Mean Platelet Volume 11.4 FL (9.6-12.0); Monocytes % 26.5 % (1.7-12.7); Neutrophils # 1.6 10*3/uL (1.4-7.4); Neutrophils % 44.5 % (38.7-73.9); Platelet Count 112 T/CUMM (130-400); Red Blood Count 3.81 MC/CUMM (3.8-5.5); Red Cell Distribution Width 20.2 % (9.3-17.3); White Blood Count 3.6 T/CUMM (4-12)
[2017-04-07 06:44] LABS: Atypical Lymphocytes Few; Band Neutrophils 2 % (0-10); Eosinophils 6 % (0-10); Lymphocytes 35 % (20-55); Segmented Neutrophils 45 % (50-85); Total Cells Counted 100
[2017-04-07 06:45] LABS: Hypochromasia 1+; Microcytosis 1+; Ovalocytes Slight; Platelet Estimate Adequate; Tear Drop Cells Slight
[2017-04-07 06:51] LABS: Albumin 2.4 G/DL (3.4-5.0); Bilirubin,Total 1.3 MG/DL (0.2-1.0); Calcium 8.1 MG/DL (8.5-10.1); Magnesium 2.2 MG/DL (1.8-2.4); Osmolality,Calculated 285.3 MOS/KG (273-304); Phosphorous 3.5 MG/DL (2.5-4.9); Potassium 4.4 MMOL/L (3.5-5.1); Total Protein 5.9 G/DL (6.4-8.3)
--- NOTE | 2017-04-07 08:56 | XRay Report ---
Exam: XR chest 1V portable Indication: COPD, cardiomegaly Comparison study: 04/05/2017 radiograph Findings: Cardiac silhouette is mildly enlarged, similar to prior. There has been near complete clearing of the interstitial and airspace opacity seen previously in the perihilar regions and right upper lobe. Mild prominence of the perihilar regions however is noted and may represent prominent vascular structures but is otherwise indeterminant. The there is also improved aeration within the left lung base. There is no pneumothorax. Osseous structures are stable. Impression: Improved aeration within the right upper lobe and left lung base suggesting clearing interstitial/pulmonary edema. Similar cardiomegaly. PROCEDURE INTERPRETED AT [facility] DEPARTMENT OF RADIOLOGY Final Report Signed by: Kevin Posey
[2017-04-07] MEDS: PANTOPRAZOLE 40 MG TABLET PO SCH (09:02)
[2017-04-07] MEDS: INSULIN LISPRO 100 UNIT/ML SUBCUT SCH ×4 (09:03→21:40)
[2017-04-07] MEDS ORDERED: ALBUTEROL 2.5 MG/3 ML NEB RESP TX PRN (11:31)
--- NOTE | 2017-04-07 11:42 | Hospitalist Progress Note ---
Assessment and Plan (1) Abdominal pain Status: Acute Assessment and plan: Patient verbalized right lower quadrant abdominal pain. Right lower quadrant abdominal pain tenderness noted upon gentle palpation. We will order CT abdomen and pelvis with oral contrast. NG tube has been ordered for the introduction of contrast. 04/07-CT abdomen and pelvis performed on yesterday reported prominent splenomegaly in addition a 2 cm hypodensity in the left kidney which was likely a cyst was noted. In addition, the presence of multiple periaortic nodes were noted and a 2 cm node adjacent to the spleen was noted. We will consult hematology to evaluate and offer recommendations. Current Visit: Yes Qualifiers: Abdominal location: right lower quadrant Qualified Code(s): R10.31 - Right lower quadrant pain (2) Pneumonia Status: Acute Assessment and plan: We will continue empiric antibiotics coverage as previously ordered. Will recheck chest x-ray in a.m. 04/07-chest x-ray reported improved aeration within the right upper lobe and left lung base suggesting clearing interstitial/pulmonary edema. We will start Mucinex and Solu-Medrol. We will recheck chest x-ray in a.m. Current Visit: Yes (3) Splenomegaly Status: Acute Assessment and plan: CT abdomen and pelvis significant for prominent splenomegaly. In addition, nonspecific borderline sized axillary upper abdominal nodes were noted. We will consult hematology to evaluate and offer recommendations. Current Visit: Yes Exam - Constitutional Vitals: Period Temp Pulse Resp BP Sys/Meadows Pulse Ox Last 24 Hr 96.7 F-98.3 F 65-116 18-35 113-157/54-91 90-100 General appearance: morbidly obese - Head Head exam: Present: normal inspection. Absent: normocephalic, atraumatic - Eye Eye exam: Present: EOMI. Absent: conjunctival injection Pupils: Present: MACI, normal accommodation - ENT ENT exam: Present: normal exam, normal external ear exam, normal oropharynx - Neck Neck exam: Present: normal inspection. Absent: lymphadenopathy, meningismus, thyromegaly - Respiratory Respiratory exam: Present: decreased breath sounds, wheezes - Cardiovascular Cardiovascular exam: Present: regular rate and rhythm. Absent: carotid bruit, diastolic murmur, gallop, JVD, rubs, systolic murmur, tachycardia - GI/Abdominal GI/Abdominal exam: Present: normal bowel sounds, tenderness (Right lower quadrant tenderness noted upon deep palpation.) - Extremities Exam Extremities exam: Present: normal inspection, edema (+2 edema noted to bilateral lower extremity) - Back Exam Back exam: Present: normal inspection - Neurological Exam Neurological exam: Present: alert, oriented X3, CN II-XII intact - Psychiatric Psychiatric exam: Present: flat affect - Skin Skin exam: Present: normal color, warm, dry Results - Labs CBC & BMP: 04/07/17 05:26 04/07/17 05:26 Lab Results: I have reviewed the past 24 hour labs
[2017-04-07] MEDS ORDERED: methylPREDNISolone SOD SUC 125 MG/2 ML VIAL IV SCH (12:00)
--- NOTE | 2017-04-07 16:42 | Pulmonology Consult Note ---
Assessment and Plan (1) Morbid obesity Status: Acute Assessment and plan: Patient weighs 352 pounds. May well have obesity hypoventilation syndrome. Need to check blood gases and see if her PCO2 is elevated. She may be helped with BiPAP at night. May want to have sleep physician see her. Current Visit: Yes (2) Pneumonia Status: Acute Assessment and plan: Fever to 101.9, cough with yellow sputum production, bibasilar consolidation as well as infiltrate in the lingula and right upper lobe all consistent with bronchopneumonia. This started while she was at a long term swing bed after being in the hospital. Must be considered healthcare facility associated. Agree with broad-spectrum antibiotics. Current Visit: Yes (3) SIRS (systemic inflammatory response syndrome) Status: Acute Assessment and plan: My bump with steroids because of the pneumonia. Current Visit: Yes (4) Splenomegaly Status: Acute Assessment and plan: She has a rather large spleen seen on abdominal CT. Hematology is to review. She is anemic. Current Visit: Yes (5) Microcytic anemia Status: Acute Assessment and plan: Hematology to review. Current Visit: No (6) Poorly controlled diabetes mellitus Status: Acute Assessment and plan: Blood sugars in the upper 100s which is actually pretty good control. Going to put her on 40 mg a day of Solu-Medrol for 3 days because of her acute pneumonia. This may aggravate her glucoses. Current Visit: No History of Present Illness Chief complaint: Cough congestion fever History of present illness: Ms. Hooker is a 61 year old female who weighs 352 pounds. She was here about a month ago and was sent to long term. Apparently had a urinary tract infection last admission. She was on oxygen at the long term. She came in 2 days ago with increased cough congestion and fever to 101.9. She is coughing up a little yellow phlegm. She is not having any chest pain. She is having abdominal pain. She has had some mild nausea but she has been able to eat and drink okay. She had a bowel movement yesterday and today. She is a non -smoker never has been a smoker. Denies any history of lung or heart trouble. Home Medications Medication Instructions Recorded Confirmed Type Aspirin EC Tab 81 mg PO QAM 02/24/17 04/05/17 History Ferrous Sulfate 325 mg PO QAM 02/24/17 04/05/17 History Labetalol Tab [Trandate Tab] 100 mg PO BID 02/24/17 04/05/17 History Meloxicam 7.5 mg PO Q12H PRN 02/24/17 04/05/17 History Pregabalin [Lyrica] 75 mg PO BID 02/24/17 04/05/17 History glipiZIDE [Glipizide] 10 mg PO BIDAC 02/24/17 04/05/17 History Insulin Glargine [Lantus] 40 unit SUBCUT BEDTIME #1000 unit 03/02/17 04/05/17 Rx Levothyroxine Tab [Synthroid Tab] 50 mcg PO DAILY@0700 #30 tablet 03/02/1704/05 Rx Lovastatin [Mevacor] 20 mg PO DAILY W/SUPPER #30 tablet 03/02/17 04/05/17 Rx Acetaminophen Tab [Tylenol Tab] 650 mg PO Q4H PRN 04/05/17 04/05/17 History HYDROcodone/ACETAMIN 7.5-325 1 tablet PO BIDX7 04/05/17 04/05/17 History [[place] 7.5-325] Insulin Regular [HumuLIN R] 0 unit SUBCUT BID 04/05/17 04/05/17 History Lactulose Liquid [Chronulac] 30 ml PO QAM 04/05/17 04/05/17 History Loratadine [Claritin] 10 mg PO QDX21 04/05/17 04/05/17 History Multivitamin [One Daily 1 each PO QAM 04/05/17 04/05/17 History Multivitamin] Zinc Oxide [Zinc Oxide 40% Oint] 1 applic TOP Q8H PRN 04/05/17 04/05/17 History diphenhydrAMINE CAP [Benadryl Cap] 25 mg PO Q6H PRN 04/05/17 04/05/17 History Allergies Allergy/AdvReac Type Severity Reaction Status Date / Time No Known Allergies Allergy Verified 02/24/17 11:35 12 point system: reviewed and no additional remarkable complaints except as stated - Constitutional Constitutional: Present: fever(s), weakness - Cardiovascular Cardiovascular: Present: dyspnea, dyspnea on exertion - Respiratory Respiratory: Present: cough, dyspnea, dyspnea on exertion, change in phlegm color - Gastrointestinal Gastrointestinal: Present: nausea - Genitourinary Genitourinary: Present: other (Recent UTI) Exam (Pulmonay) H&P - Constitutional Vitals: Period Temp Pulse Resp BP Sys/[place]ows Pulse Ox Last 24 Hr 97.2 F-98.3 F 65-115 18-34 119-159/65-91 91-100 Exam: Patient is afebrile now. O2 sat 96% on 4 L nasal oxygen. Vital signs otherwise normal. Pupils react to light. Throat is clear. Neck supple no bruits. Chest reveals some rhonchi in both bases. Heart normal rate and rhythm no murmurs. Abdomen soft. There is some mild direct epigastric tenderness. Spleen tip is barely palpable. Extremities no clubbing cyanosis or edema. Calves nontender. Medical,Surgical,& Family Hx - Medical History Cardio: History of: Hypertension Psychological: History of: Anxiety Disorders Endocrine: History of: Diabetes Mellitus (NIDDM), Dyslipidemia, Thyroid Disorder Rheumatology: History of;: Rheumatological Problems (arthritis) Respiratory: History of: Pneumonia Musculoskeletal: History of: Musculoskeletal Problems (arthritis) Hematology: History of: Anemia Other: History of: Miscellaneous Medical Problems (morbid obesity) - Social History Smoking Status: Never smoker Frequency of Alcohol Use: None Type of Drug Use: None Results - Labs CBC & BMP: 04/07/17 05:26 04/07/17 05:26 Lab Results: I have reviewed the past 24 hour labs - Diagnostic Findings Procedure: Chest x-ray: image reviewed by me (Patchy bilateral infiltrate), CT Abdomen and Pelvis: image reviewed by me (Lower lung was captured on the CT of the abdomen. She has what looks like pneumonia with consolidation in both lower lobes posteriorly. Also in the lingula. Unable to see the right upper lobe but I suspect she has infiltrate there as well based on her chest x-ray.)
[2017-04-07] MEDS: methylPREDNISolone SOD SUC 40 MG/1 ML VIAL IV SCH (16:52)
[2017-04-07 17:53] LABS: ABG Base Excess 0.5 MMOL/L (-2.5-2.5); ABG HCO3 24.7 MMOL/L (20-26); ABG Oxygen Saturation 89.4 % (95-100); ABG PCO2 43.9 MM HG (35-48); ABG PH 7.377 (7.35-7.45); ABG PO2 60.2 MM HG (80-95); ABG TCO2 23.8 MMOL/L (23-27); Allen Test Positive
[2017-04-07] MEDS: ENOXAPARIN 40 MG/0.4 ML SYRINGE SUBCUT SCH (21:41)
[2017-04-07] MEDS: guaiFENesin/DM ER 600-30 MG TABLET PO SCH (21:41)
[2017-04-08] MEDS: ALBUTEROL/IPRATROPIUM 3 ML NEB RESP TX SCH ×4 (00:07→19:12)
[2017-04-08] MEDS: PIPERACILLIN/TAZOBACTAM 3,375 MG in SODIUM CHLORIDE 0.9% 100 ML IV SCH ×3 (05:55→23:18)
[2017-04-08 07:53] LABS: Eosinophils % 0.3 % (0.00-10.9); Hematocrit 29.8 VOL% (35.7-47.0); Hemoglobin 9.1 GM/DL (12.0-16.0); Immature Granulocytes % 1.3 %; Immature Granulocytes Absolute 0.04 #; Lymphocytes # 0.9 10*3/uL (1.4-4.0); Lymphocytes % 27.5 % (21.3-54.2); Mean Corpuscular HGB Conc 30.5 GM/DL (32-36); Mean Corpuscular Hemoglobin 23 PG (27-34); Mean Corpuscular Volume 74.9 FL (87-102); Mean Platelet Volume 10.3 FL (9.6-12.0); Monocytes # 0.6 10*3/uL (0.11-0.8); NRBC # 0.02 10*3/uL; Neutrophils # 1.7 10*3/uL (1.4-7.4); Neutrophils % 52.9 % (38.7-73.9); Platelet Count 130 T/CUMM (130-400); Red Blood Count 3.98 MC/CUMM (3.8-5.5); Red Cell Distribution Width 19.6 % (9.3-17.3); White Blood Count 3.2 T/CUMM (4-12)
--- NOTE | 2017-04-08 08:15 | Pulmonology Progress Note ---
Pulmonary - PN: Subj Interval history: This 61-year-old female has morbid obesity. She comes in with bilateral infiltrates and yellow sputum and fever. Clearly has pneumonia. This came about while she was at a [place] [facility] and must be considered healthcare facility associated. She is feeling a little better today. She is using her BiPAP at night. ABG showed a PCO2 of 43. Thus it appears that she does not have jayme obesity hypoventilation syndrome. She does have obstructive sleep apnea. Exam (Progress Note) - Constitutional Vitals: Period Temp Pulse Resp BP Sys/Meadows Pulse Ox Last 24 Hr 97.3 F-98.1 F 67-115 16-34 136-167/70-95 91-100 Exam: Patient is responsive vital signs normal. Pupils react to light. Throat is clear. Neck supple no bruits. She has shows some coarse rhonchi. Heart normal rate and rhythm no murmurs. Abdomen grand obese unable to palpate abdominal organs. Extremities no clubbing cyanosis edema. Calves nontender. Results - Labs CBC & BMP: 04/08/17 07:47 04/07/17 05:26 Lab Results: I have reviewed the past 24 hour labs Assessment and Plan (1) Morbid obesity Status: Acute Assessment and plan: Patient weighs 352 pounds. May well have obesity hypoventilation syndrome. Need to check blood gases and see if her PCO2 is elevated. She may be helped with BiPAP at night. May want to have sleep physician see her. 04/08/2017 PCO2 was 43. This is not high enough to make the call of obesity hypoventilation. Certainly appears that she does have obstructive sleep apnea. Keep oxygen saturations in the low 90s. Current Visit: Yes (2) Pneumonia Status: Acute Assessment and plan: Fever to 101.9, cough with yellow sputum production, bibasilar consolidation as well as infiltrate in the lingula and right upper lobe all consistent with bronchopneumonia. This started while she was at a [place] [facility] bed after being in the hospital. Must be considered healthcare facility associated. Agree with broad-spectrum antibiotics. 04/08/2017 she has bilateral bronchopneumonia. This was seen best in the posterior bases on CT. She has consolidation on both sides. Pneumonia started while she was in a swing bed. Thus it is healthcare facility associated. Current Visit: Yes (3) SIRS (systemic inflammatory response syndrome) Status: Acute Assessment and plan: May bump with steroids because of the pneumonia. Current Visit: Yes (4) Splenomegaly Status: Acute Assessment and plan: She has a rather large spleen seen on abdominal CT. Hematology is to review. She is anemic. 04/08/2017 splenomegaly along with pancytopenia is going to be evaluated by hematology today. Current Visit: Yes (5) Microcytic anemia Status: Acute Assessment and plan: Hematology to review. Current Visit: No (6) Poorly controlled diabetes mellitus Status: Acute Assessment and plan: Blood sugars in the upper 100s which is actually pretty good control. Going to put her on 40 mg a day of Solu-Medrol for 3 days because of her acute pneumonia. This may aggravate her glucoses. 04/08/2017 her glucoses are in the 100s and 200s. She is on steroids. She has a history of poor control before she came into the hospital. Hopefully this will improve as we reduce steroids. Current Visit: No
[2017-04-08 08:21] LABS: Eosinophils 1 % (0-10); Giant Platelets Few; Hypochromasia 1+; Lymphocytes 36 % (20-55); Nucleated Red Blood Cells 1 (0-5); Ovalocytes Slight; Platelet Estimate Normal; Segmented Neutrophils 52 % (50-85); Total Cells Counted 100
[2017-04-08 08:22] LABS: Microcytosis 1+
[2017-04-08 08:31] LABS: Magnesium 1.9 MG/DL (1.8-2.4); Phosphorous 3.2 MG/DL (2.5-4.9)
[2017-04-08 08:37] LABS: Albumin 2.6 G/DL (3.4-5.0); Bilirubin,Total 0.6 MG/DL (0.2-1.0); Calcium 8.5 MG/DL (8.5-10.1); Osmolality,Calculated 287.5 MOS/KG (273-304); Potassium 4.6 MMOL/L (3.5-5.1); Total Protein 6.4 G/DL (6.4-8.3)
[2017-04-08] MEDS: INSULIN LISPRO 100 UNIT/ML SUBCUT SCH ×4 (08:44→21:37)
[2017-04-08] MEDS: methylPREDNISolone SOD SUC 40 MG/1 ML VIAL IV SCH (08:44)
[2017-04-08] MEDS: VANCOMYCIN INJ 1,750 MG in SODIUM CHLORIDE 0.9% 500 ML IV SCH (08:45)
[2017-04-08] MEDS: PANTOPRAZOLE 40 MG TABLET PO SCH (08:45)
[2017-04-08] MEDS: guaiFENesin/DM ER 600-30 MG TABLET PO SCH ×2 (08:45→21:39)
--- NOTE | 2017-04-08 10:40 | Oncology Consult Note ---
History of Present Illness History of present illness: Ms. Hooker is a 61 year old female with splenomegaly. She underwent CT scan with contrast on April 05, 2017 and the scan demonstrated splenomegaly. She also may have an accessory spleen. Most recent lab work was done April 08, 2017 and her white cell count is low at 3200. She has a hemoglobin of 9.1. Her MCV is low at 74.9. Her RDW is high at 19.6. Her white cell count is 3200 with an absolute neutrophil count of 1700. Her platelet count is 130,000 although it had been lower. Her comprehensive metabolic profile includes a glucose of 238. Her transaminases are normal. Her serum creatinine is normal at 0.8. She has a history of systemic inflammatory response syndrome, which is described in up-to-date as a pediatric syndrome associated with sepsis. She is morbidly obese and diabetic. She is a care home patient. She was admitted with fever greater than 101 and with a cough and pulmonary congestion. She has no history of smoking. Past medical history: Allergies: No known allergies Past medical history is positive for hypertension, chronic anxiety, diabetes mellitus, dyslipidemia, thyroid dysfunction, rheumatoid arthritis, recurrent pneumonia, arthritis, anemia and morbid obesity. Social history: She has never smoked and does not use alcohol. The review of systems: Cardiovascular review of systems is positive for hypertension She has morbid obesity. She is oxygen dependent with restrictive lung disease apparently also with sleep apnea. She has had some abdominal pain, distention and nausea recently. She does not report being able to detect any cervical, submandibular or axillary adenopathy. She has a history of chronic skin rash with dry skin. Physical examination: General: The patient appears acutely ill as well as morbidly obese. Eyes: Normal lids and conjunctivae. ENT: Her oral mucosa appears normal. Her right tonsil appears enlarged. I palpate no neck masses and her thyroid appears normal. Pulmonary: She has a prolonged expiratory phase of respiration and she has wheezing throughout the lung schwartz. Cardiovascular: Her heart rhythm is regular without murmur, gallop or rub. There is no jugular venous distention, clubbing, cyanosis or edema. Abdomen: She is morbidly obese and I cannot palpate any masses or ascites but she is tender to palpation particularly in the left upper quadrant. Musculoskeletal: There is no focal muscle atrophy or bone or joint deformity but she has what appears to be generalized muscle weakness. Neurologic: Cranial nerves II through XII are intact. The no focal neurologic deficits. Nodes: I cannot palpate any submandibular, cervical or supraclavicular adenopathy. The following medications this patient is taking could affect her blood work and splenomegaly: Labetalol can cause lupus erythematosus. Meloxicam can cause blood dyscrasias and anemia Lyrica can cause thrombocytopenia. It can also cause exfoliative dermatitis which the patient may have. Glipizide can cause agranulocytosis, aplastic anemia, hemolytic anemia, thrombocytopenia and leukopenia as well as pancytopenia and also hepatitis which could contribute to splenomegaly. Lovastatin can cause lupus erythematosus, dermatomyositis, thrombocytopenia, leukopenia, hemolytic anemia and liver toxicity. I do not see any comment on the CT scan by the radiologist as to whether or not the patient has evidence of cirrhosis. If she has any evidence of cirrhosis, this could contribute to her splenomegaly as well as her pancytopenia. Home Medications Medication Instructions Recorded Confirmed Type Aspirin EC Tab 81 mg PO QAM 02/24/17 04/05/17 History Ferrous Sulfate 325 mg PO QAM 02/24/17 04/05/17 History Labetalol Tab [Trandate Tab] 100 mg PO BID 02/24/17 04/05/17 History Meloxicam 7.5 mg PO Q12H PRN 02/24/17 04/05/17 History Pregabalin [Lyrica] 75 mg PO BID 02/24/17 04/05/17 History glipiZIDE [Glipizide] 10 mg PO BIDAC 02/24/17 04/05/17 History Insulin Glargine [Lantus] 40 unit SUBCUT BEDTIME #1000 unit 03/02/17 04/05/17 Rx Levothyroxine Tab [Synthroid Tab] 50 mcg PO DAILY@0700 #30 tablet 03/02/1704/05 Rx Lovastatin [Mevacor] 20 mg PO DAILY W/SUPPER #30 tablet 03/02/17 04/05/17 Rx Acetaminophen Tab [Tylenol Tab] 650 mg PO Q4H PRN 04/05/17 04/05/17 History HYDROcodone/ACETAMIN 7.5-325 1 tablet PO BIDX7 04/05/17 04/05/17 History [[place] 7.5-325] Insulin Regular [HumuLIN R] 0 unit SUBCUT BID 04/05/17 04/05/17 History Lactulose Liquid [Chronulac] 30 ml PO QAM 04/05/17 04/05/17 History Loratadine [Claritin] 10 mg PO QDX21 04/05/17 04/05/17 History Multivitamin [One Daily 1 each PO QAM 04/05/17 04/05/17 History Multivitamin] Zinc Oxide [Zinc Oxide 40% Oint] 1 applic TOP Q8H PRN 04/05/17 04/05/17 History diphenhydrAMINE CAP [Benadryl Cap] 25 mg PO Q6H PRN 04/05/17 04/05/17 History Allergies Allergy/AdvReac Type Severity Reaction Status Date / Time No Known Allergies Allergy Verified 02/24/17 11:35 Medical,Surgical,& Family Hx - Medical History Cardio: History of: Hypertension Psychological: History of: Anxiety Disorders Endocrine: History of: Diabetes Mellitus (NIDDM), Dyslipidemia, Thyroid Disorder Rheumatology: History of;: Rheumatological Problems (arthritis) Respiratory: History of: Pneumonia Musculoskeletal: History of: Musculoskeletal Problems (arthritis) Hematology: History of: Anemia Other: History of: Miscellaneous Medical Problems (morbid obesity) - Social History Smoking Status: Never smoker Frequency of Alcohol Use: None Type of Drug Use: None Exam - Constitutional Vitals: Period Temp Pulse Resp BP Sys/Meadows Pulse Ox Last 24 Hr 96.4 F-98.1 F 67-115 16-34 136-167/70-95 91-100 Results - Labs CBC & BMP: 04/08/17 07:47 04/08/17 07:47
--- NOTE | 2017-04-08 13:16 | Hospitalist Progress Note ---
Assessment and Plan (1) Abdominal pain Status: Acute Assessment and plan: Patient verbalized right lower quadrant abdominal pain. Right lower quadrant abdominal pain tenderness noted upon gentle palpation. We will order CT abdomen and pelvis with oral contrast. NG tube has been ordered for the introduction of contrast. 04/07-CT abdomen and pelvis performed on yesterday reported prominent splenomegaly in addition a 2 cm hypodensity in the left kidney which was likely a cyst was noted. In addition, the presence of multiple periaortic nodes were noted and a 2 cm node adjacent to the spleen was noted. We will consult hematology to evaluate and offer recommendations. 04/08-hematology evaluation this a.m. We appreciate the input. We will await hematology recommendations. Current Visit: Yes Qualifiers: Abdominal location: right lower quadrant Qualified Code(s): R10.31 - Right lower quadrant pain (2) Pneumonia Status: Acute Assessment and plan: We will continue empiric antibiotics coverage as previously ordered. Will recheck chest x-ray in a.m. 04/07-chest x-ray reported improved aeration within the right upper lobe and left lung base suggesting clearing interstitial/pulmonary edema. We will start Mucinex and Solu-Medrol. We will recheck chest x-ray in a.m. 04/08-patient seen and evaluated by pulmonology. We appreciate the input. We will agree with pulmonary's plan for evaluation for BiPAP during nighttime hours. We will continue empiric antibiotic coverage as previously ordered. Current Visit: Yes (3) Splenomegaly Status: Acute Assessment and plan: CT abdomen and pelvis significant for prominent splenomegaly. In addition, nonspecific borderline sized axillary upper abdominal nodes were noted. We will consult hematology to evaluate and offer recommendations. 04/08-hematology consultation this a.m. We appreciate the input. We will await further recommendations Current Visit: Yes Hospitalist: Subjective Interval history: Patient seen and examined; chart reviewed. No significant overnight events reported per staff. Patient seen and evaluated by both pulmonology and oncology today. Exam - Constitutional Vitals: Period Temp Pulse Resp BP Sys/Meadows Pulse Ox Last 24 Hr 96.4 F-98.1 F 67-111 12-34 136-167/81-95 91-100 General appearance: morbidly obese - Head Head exam: Present: normal inspection, normocephalic, atraumatic - Eye Eye exam: Present: EOMI. Absent: conjunctival injection Pupils: Present: MACI, normal accommodation - ENT ENT exam: Present: normal exam, normal external ear exam, normal oropharynx - Neck Neck exam: Present: normal inspection. Absent: lymphadenopathy, meningismus, tenderness, thyromegaly - Respiratory Respiratory exam: Present: decreased breath sounds, rhonchi. Absent: accessory muscle use, chest wall tenderness, prolonged expiratory phase, rales, stridor, wheezes - Cardiovascular Cardiovascular exam: Present: regular rate and rhythm. Absent: carotid bruit, diastolic murmur, gallop, JVD, rubs, systolic murmur - GI/Abdominal GI/Abdominal exam: Present: normal bowel sounds, soft - Extremities Exam Extremities exam: Present: normal inspection, normal capillary refill, edema (+ 3 pitting edema to bilateral lower extremities) - Back Exam Back exam: Present: normal inspection - Neurological Exam Neurological exam: Present: alert, oriented X3, altered - Psychiatric Psychiatric exam: Present: flat affect - Skin Skin exam: Present: normal color, warm, dry Results - Labs CBC & BMP: 04/08/17 07:47 04/08/17 07:47 Lab Results: I have reviewed the past 24 hour labs
[2017-04-08] MEDS: ENOXAPARIN 40 MG/0.4 ML SYRINGE SUBCUT SCH (21:37)
[2017-04-09] MEDS: ALBUTEROL/IPRATROPIUM 3 ML NEB RESP TX SCH ×4 (00:33→19:17)
[2017-04-09] MEDS: ONDANSETRON 4 MG/2 ML VIAL IV PRN ×3 (02:25→17:24)
[2017-04-09] MEDS: PIPERACILLIN/TAZOBACTAM 3,375 MG in SODIUM CHLORIDE 0.9% 100 ML IV SCH ×3 (05:45→22:37)
--- NOTE | 2017-04-09 07:43 | Pulmonology Progress Note ---
Pulmonary - PN: Subj Interval history: This 61-year-old female has morbid obesity. She comes in with bilateral infiltrates and yellow sputum and fever. Clearly has pneumonia. [facility] and must be considered healthcare facility associated. She is feeling a little better today. She is using her BiPAP at night. ABG showed a PCO2 of 43. Thus it appears that she does not have jayme obesity hypoventilation syndrome. She does have obstructive sleep apnea. 04/09/2017 patient is feeling a little better. She relates that she has been vomiting. She tells me that she had the first sleep study done on apparently at [place]. She was due to have a second 1 but did not go back. She is not currently using BiPAP as I have been told. We need to have Dr. Vargas to see her and see where we stand there. Exam (Progress Note) - Constitutional Vitals: Period Temp Pulse Resp BP Sys/Meadows Pulse Ox Last 24 Hr 96.4 F-98.2 F 84-103 12-32 138-180/77-83 98-100 Exam: Patient is responsive vital signs normal. Pupils react to light. Throat is clear. Neck supple no bruits. She has shows some coarse rhonchi. Heart normal rate and rhythm no murmurs. Abdomen grand obese unable to palpate abdominal organs. Extremities no clubbing cyanosis edema. Calves nontender. Little change from yesterday. Results - Labs CBC & BMP: 04/08/17 07:47 04/08/17 07:47 Lab Results: I have reviewed the past 24 hour labs Assessment and Plan (1) Morbid obesity Status: Acute Assessment and plan: Patient weighs 352 pounds. May well have obesity hypoventilation syndrome. Need to check blood gases and see if her PCO2 is elevated. She may be helped with BiPAP at night. May want to have sleep physician see her. 04/08/2017 PCO2 was 43. This is not high enough to make the call of obesity hypoventilation. Certainly appears that she does have obstructive sleep apnea. Keep oxygen saturations in the low 90s. 04/09/2017 she does not have obesity hypoventilation syndrome. However does need to lose a good bit of weight. Current Visit: Yes (2) Pneumonia Status: Acute Assessment and plan: Fever to 101.9, cough with yellow sputum production, bibasilar consolidation as well as infiltrate in the lingula and right upper lobe all consistent with bronchopneumonia. [facility]. Must be considered healthcare facility associated. Agree with broad-spectrum antibiotics. 04/08/2017 she has bilateral bronchopneumonia. This was seen best in the posterior bases on CT. She has consolidation on both sides. Pneumonia started while she was in a swing bed. Thus it is healthcare facility associated. 04/09/2017 has bilateral bronchopneumonia. Continuing broad-spectrum antibiotics. Recheck chest x-ray Wednesday. Current Visit: Yes (3) SIRS (systemic inflammatory response syndrome) Status: Acute Assessment and plan: May bump with steroids because of the pneumonia. Current Visit: Yes (4) Splenomegaly Status: Acute Assessment and plan: She has a rather large spleen seen on abdominal CT. Hematology is to review. She is anemic. 04/08/2017 splenomegaly along with pancytopenia is going to be evaluated by hematology today. 04/09/2017 defer to hematology for evaluation Current Visit: Yes (5) Microcytic anemia Status: Acute Assessment and plan: Hematology to review. 04/09/17 has pancytopenia. Being evaluated by hematology. Current Visit: No (6) Poorly controlled diabetes mellitus Status: Acute Assessment and plan: Blood sugars in the upper 100s which is actually pretty good control. Going to put her on 40 mg a day of Solu-Medrol for 3 days because of her acute pneumonia. This may aggravate her glucoses. 04/08/2017 her glucoses are in the 100s and 200s. She is on steroids. She has a history of poor control before she came into the hospital. Hopefully this will improve as we reduce steroids. 04/09/2017 sliding scale coverage. Steroids will aggravate. Current Visit: No
--- NOTE | 2017-04-09 08:34 | Hospitalist Progress Note ---
Assessment and Plan (1) Abdominal pain Status: Acute Assessment and plan: Patient verbalized right lower quadrant abdominal pain. Right lower quadrant abdominal pain tenderness noted upon gentle palpation. We will order CT abdomen and pelvis with oral contrast. NG tube has been ordered for the introduction of contrast. 04/07-CT abdomen and pelvis performed on yesterday reported prominent splenomegaly in addition a 2 cm hypodensity in the left kidney which was likely a cyst was noted. In addition, the presence of multiple periaortic nodes were noted and a 2 cm node adjacent to the spleen was noted. We will consult hematology to evaluate and offer recommendations. 04/08-hematology evaluation this a.m. We appreciate the input. We will await hematology recommendations. 04/09-the patient was evaluated by hematology on yesterday. Hematology suggested at the origin of the patient's splenomegaly could be secondary to her current medication regimen. We appreciate the input. We will await further recommendations. In addition, the patient has experienced multiple episodes of nausea and vomiting throughout the night. We will order KUB and check for fecal impaction. Current Visit: Yes Qualifiers: Abdominal location: right lower quadrant Qualified Code(s): R10.31 - Right lower quadrant pain (2) Pneumonia Status: Acute Assessment and plan: We will continue empiric antibiotics coverage as previously ordered. Will recheck chest x-ray in a.m. 04/07-chest x-ray reported improved aeration within the right upper lobe and left lung base suggesting clearing interstitial/pulmonary edema. We will start Mucinex and Solu-Medrol. We will recheck chest x-ray in a.m. 04/08-patient seen and evaluated by pulmonology. We appreciate the input. We will agree with pulmonary's plan for evaluation for BiPAP during nighttime hours. We will continue empiric antibiotic coverage as previously ordered. 04/09-pulmonology to manage. We will continue BiPAP and empiric antibiotic coverage as previously ordered. Current Visit: Yes (3) Splenomegaly Status: Acute Assessment and plan: CT abdomen and pelvis significant for prominent splenomegaly. In addition, nonspecific borderline sized axillary upper abdominal nodes were noted. We will consult hematology to evaluate and offer recommendations. 04/08-hematology consultation this a.m. We appreciate the input. We will await further recommendations. 04/09 patient was evaluated by hematology on yesterday. We appreciate input. We will await further recommendations. Hematology to manage. Current Visit: Yes Hospitalist: Subjective Interval history: Patient seen and examined; chart reviewed. Multiple episodes of nausea and vomiting reported per patient this morning. The patient continues to verbalize abdominal pain. We will order KUB and check for fecal impaction. Exam - Constitutional Vitals: Period Temp Pulse Resp BP Sys/Meadows Pulse Ox Last 24 Hr 96.7 F-98.2 F 86-103 12-32 138-180/77-88 98-100 General appearance: morbidly obese - Head Head exam: Present: normal inspection, normocephalic, atraumatic - Eye Eye exam: Present: EOMI. Absent: conjunctival injection Pupils: Present: MACI, normal accommodation - ENT ENT exam: Present: normal exam, normal external ear exam, normal oropharynx - Neck Neck exam: Absent: lymphadenopathy, meningismus - Respiratory Respiratory exam: Present: rhonchi - Cardiovascular Cardiovascular exam: Present: regular rate and rhythm. Absent: carotid bruit, diastolic murmur, gallop, JVD, rubs, systolic murmur - GI/Abdominal GI/Abdominal exam: Present: normal bowel sounds, tenderness (Right upper quadrant tenderness), soft - Extremities Exam Extremities exam: Present: edema (+3 pitting edema noted to the bilateral lower extremity) - Back Exam Back exam: Present: normal inspection - Neurological Exam Neurological exam: Present: alert, oriented X3, CN II-XII intact - Psychiatric Psychiatric exam: Present: flat affect - Skin Skin exam: Present: normal color, warm, dry Results - Labs CBC & BMP: 04/08/17 07:47 04/08/17 07:47 Lab Results: I have reviewed the past 24 hour labs
--- NOTE | 2017-04-09 09:48 | XRay Report ---
XR KUB Indication: Abdominal pain , nausea vomiting Comparison: None available Findings: No free fluid or free air seen. The bowel gas pattern appears within normal limits. No abnormal calcifications are present. No other abnormality is identified. Impression: No evidence of abnormality demonstrated PROCEDURE INTERPRETED AT [facility] DEPARTMENT OF RADIOLOGY Final Report Signed by: Dr. Mckay Cintron
[2017-04-09] MEDS: INSULIN LISPRO 100 UNIT/ML SUBCUT SCH ×4 (10:00→22:08)
[2017-04-09] MEDS: PANTOPRAZOLE 40 MG TABLET PO SCH (10:01)
[2017-04-09] MEDS: guaiFENesin/DM ER 600-30 MG TABLET PO SCH ×2 (10:01→22:07)
[2017-04-09] MEDS: methylPREDNISolone SOD SUC 40 MG/1 ML VIAL IV SCH (10:01)
[2017-04-09] MEDS: SODIUM CHLORIDE 0.9% 1,000 ML IV SCH (10:09)
[2017-04-09] MEDS: VANCOMYCIN INJ 1,750 MG in SODIUM CHLORIDE 0.9% 500 ML IV SCH (10:12)
--- NOTE | 2017-04-09 10:14 | Oncology Progress Note ---
Oncology Subjective PN Interval history: This morbidly obese lady has splenomegaly and questionable lymphadenopathy. I can find no easily accessible lymph nodes to consider biopsying. Any type of abdominal surgery is going to be difficult on the patient with so many comorbidities and I do not favor splenectomy under the circumstances. However, surgical consultation concerning their opinion about other accessible sites to biopsy might be appropriate. I have ordered a serum protein electrophoresis and an MORIS. I would consider discontinuing some of the patient's medications to see if they have anything to do with her low blood counts. Exam - Constitutional Vitals: Period Temp Pulse Resp BP Sys/Meadows Pulse Ox Last 24 Hr 96.7 F-98.2 F 86-103 12-32 138-180/77-88 98-100 Results - Labs CBC & BMP: 04/08/17 07:47 04/08/17 07:47
[2017-04-09] MEDS: ENOXAPARIN 40 MG/0.4 ML SYRINGE SUBCUT SCH (22:09)
[2017-04-10] MEDS: ALBUTEROL/IPRATROPIUM 3 ML NEB RESP TX SCH ×4 (00:54→18:15)
[2017-04-10] MEDS: PIPERACILLIN/TAZOBACTAM 3,375 MG in SODIUM CHLORIDE 0.9% 100 ML IV SCH ×3 (06:30→21:46)
[2017-04-10] MEDS: INSULIN LISPRO 100 UNIT/ML SUBCUT SCH ×4 (07:38→21:45)
[2017-04-10] MEDS: guaiFENesin/DM ER 600-30 MG TABLET PO SCH ×2 (08:40→21:46)
[2017-04-10] MEDS: PANTOPRAZOLE 40 MG TABLET PO SCH (08:40)
[2017-04-10] MEDS: methylPREDNISolone SOD SUC 40 MG/1 ML VIAL IV SCH (08:57)
--- NOTE | 2017-04-10 09:35 | Hospitalist Progress Note ---
Assessment and Plan (1) Pneumonia Status: Acute Assessment and plan: Impression: 1. Pneumonia, likely due to recent hospitalization (gram-negative rods or staph ) 2. Morbid obesity 3. Splenomegaly, etiology not known Plan: Add MiraLAX. Advance diet. Review CT. The patient is agreeable to a central line; I do not know if we can get one on the weekend This note was completed using [employer] voice recognition software. 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 Current Visit: Yes Qualifiers: Pneumonia type: due to unspecified organism Laterality: unspecified laterality Lung location: unspecified part of lung Qualified Code(s): J18.9 - Pneumonia, unspecified organism Hospitalist: Subjective Interval history: Follow-up morbid obesity, splenomegaly, possible pulmonary edema/pneumonia. The patient complains of some abdominal discomfort. Nursing staff thinks that we can advance her diet. She was apparently checked for an impaction yesterday , and one was not discovered. She was found to have incidental splenomegaly on the CT scan. Oncology was consulted for this, and wondered if there is any liver disease that might be contributing. I did not see any comment about the liver on the CT report, so we will check with radiology to determine if there is actually any liver disease. The patient reports no prior history of any liver disease, alcohol use, blood transfusion, or family history of liver disease. She certainly could have hepatic steatosis. She is being treated for probable hospital acquired pneumonia on the basis of presenting symptoms and presenting chest x-ray. Exam - Constitutional Vitals: Period Temp Pulse Resp BP Sys/Meadows Pulse Ox Last 24 Hr 96.8 F-98.1 F 64-99 16-32 133-160/60-111 92-100 Vital signs are noted above. Heart is regular with no murmur or gallop. Chest is fairly clear. She has some erythema and induration of the right upper extremity from the elbow distal, but the areas apparently not tender to touch. She has an IV in 1 of the small veins in the right upper extremity. She is awake and conversant Results - Labs CBC & BMP: 04/08/17 07:47 04/08/17 07:47 Lab Results: I have reviewed the past 24 hour labs
[2017-04-10 09:40] LABS: Albumin 2.5 G/DL (3.4-5.0); Bilirubin,Total 0.6 MG/DL (0.2-1.0); Calcium 8.1 MG/DL (8.5-10.1); Magnesium 1.7 MG/DL (1.8-2.4); Osmolality,Calculated 286.4 MOS/KG (273-304); Phosphorous 3.1 MG/DL (2.5-4.9); Potassium 4.9 MMOL/L (3.5-5.1)
[2017-04-10] MEDS: POLYETHYLENE GLYCOL POWDER 17 GM PACK PO SCH (10:30)
--- NOTE | 2017-04-10 10:36 | Pulmonology Progress Note ---
Pulmonary - PN: Subj Interval history: The patient is a 61-year-old lady that is morbidly obese came in with pneumonia. She says she is feeling a good bit better and that she feels like her breathing has improved. She is not coughing a lot of sputum now. She is not having any chest pain or fever. She feels like her breathing is doing okay. Exam (Progress Note) - Constitutional Vitals: Period Temp Pulse Resp BP Sys/Meadows Pulse Ox Last 24 Hr 96.8 F-98.1 F 64-99 16-32 133-160/60-111 92-100 General appearance: no acute distress (She looks comfortable lying in bed.), morbidly obese - Head Head exam: Present: normal inspection, normocephalic - Eye Eye exam: Present: EOMI. Absent: scleral icterus Pupils: Present: MACI - ENT ENT exam: Present: normal exam - Neck Neck exam: Absent: lymphadenopathy, thyromegaly - Respiratory Respiratory exam: Present: decreased breath sounds, rhonchi, other (She has fair air movement with minimal rhonchi.) - Cardiovascular Cardiovascular exam: Present: regular rate and rhythm. Absent: gallop, systolic murmur - GI/Abdominal GI/Abdominal exam: Present: hypoactive bowel sounds, soft, other (She has a very large abdomen). Absent: organomegaly, tenderness - Extremities Exam Extremities exam: Absent: calf tenderness, edema - Neurological Exam Neurological exam: Present: alert, oriented X3, CN II-XII intact - Psychiatric Psychiatric exam: Present: normal affect - Skin Skin exam: Present: warm, dry Results - Labs CBC & BMP: 04/08/17 07:47 04/10/17 09:04 Assessment and Plan (1) Microcytic anemia Status: Acute Assessment and plan: Her hematocrit has been around 30 and she has been evaluated by hematology. Current Visit: No (2) Pneumonia Status: Acute Assessment and plan: Patient has mild pneumonia and is getting better. Current Visit: Yes Qualifiers: Pneumonia type: due to unspecified organism Laterality: unspecified laterality Lung location: unspecified part of lung Qualified Code(s): J18.9 - Pneumonia, unspecified organism (3) Diabetes mellitus Status: Acute Assessment and plan: Her glucoses being monitored and it is 183 today. Current Visit: Yes (4) Splenomegaly Status: Acute Assessment and plan: The patient has a large spleen and is being evaluated at present. Current Visit: Yes (5) Morbid obesity Status: Acute Assessment and plan: The patient has morbid obesity and is going to be evaluated for CPAP at night. Current Visit: Yes
[2017-04-10] MEDS: VANCOMYCIN INJ 1,750 MG in SODIUM CHLORIDE 0.9% 500 ML IV SCH (10:38)
[2017-04-10 12:43] LABS: Basophils % 0.6 % (0.0-0.8); Eosinophils % 0.3 % (0.00-10.9); Hematocrit 31.5 VOL% (35.7-47.0); Hemoglobin 9.5 GM/DL (12.0-16.0); Immature Granulocytes % 1.2 %; Immature Granulocytes Absolute 0.04 #; Lymphocytes # 0.8 10*3/uL (1.4-4.0); Lymphocytes % 23.6 % (21.3-54.2); Mean Corpuscular HGB Conc 30.2 GM/DL (32-36); Mean Corpuscular Hemoglobin 23 PG (27-34); Mean Corpuscular Volume 77.4 FL (87-102); Mean Platelet Volume 10.4 FL (9.6-12.0); Monocytes # 0.6 10*3/uL (0.11-0.8); Monocytes % 17.3 % (1.7-12.7); NRBC # 0.02 10*3/uL; Neutrophils # 1.9 10*3/uL (1.4-7.4); Platelet Count 160 T/CUMM (130-400); Red Blood Count 4.07 MC/CUMM (3.8-5.5); White Blood Count 3.3 T/CUMM (4-12)
[2017-04-10 13:06] LABS: Hypochromasia 1+; Lymphocytes 20 % (20-55); Platelet Estimate Normal; Segmented Neutrophils 63 % (50-85); Total Cells Counted 100
[2017-04-10 13:07] LABS: Microcytosis 1+; Ovalocytes Slight
[2017-04-10] MEDS: SODIUM CHLORIDE 0.9% 1,000 ML IV SCH ×2 (13:17)
[2017-04-10] MEDS: ENOXAPARIN 40 MG/0.4 ML SYRINGE SUBCUT SCH (21:45)
[2017-04-11] MEDS: ALBUTEROL/IPRATROPIUM 3 ML NEB RESP TX SCH ×4 (00:45→19:02)
[2017-04-11] MEDS: SODIUM CHLORIDE 0.9% 1,000 ML IV SCH (02:45)
[2017-04-11] MEDS: PIPERACILLIN/TAZOBACTAM 3,375 MG in SODIUM CHLORIDE 0.9% 100 ML IV SCH ×3 (06:17→22:55)
[2017-04-11] MEDS: MORPHINE 2 MG/1 ML SYRINGE IV PRN (07:26)
[2017-04-11] MEDS: PANTOPRAZOLE 40 MG TABLET PO SCH ×2 (07:30→08:42)
[2017-04-11] MEDS: guaiFENesin/DM ER 600-30 MG TABLET PO SCH ×3 (07:30→22:58)
[2017-04-11] MEDS: INSULIN LISPRO 100 UNIT/ML SUBCUT SCH ×4 (08:28→22:59)
[2017-04-11] MEDS: POLYETHYLENE GLYCOL POWDER 17 GM PACK PO SCH (08:34)
[2017-04-11] MEDS: ONDANSETRON 4 MG/2 ML VIAL IV PRN (08:50)
--- NOTE | 2017-04-11 09:28 | Hospitalist Progress Note ---
Assessment and Plan (1) Pneumonia Status: Acute Assessment and plan: Impression: 1. Pneumonia, likely due to recent hospitalization (gram-negative rods or staph ) 2. Morbid obesity 3. Splenomegaly, does not appear to be related to liver disease Plan: Pulmonary has discontinued IV fluids. Advance diet. Continue current IV antibiotics. This note was completed using [employer] voice recognition software. There may be business investor errors as a result. Current Visit: Yes Qualifiers: Pneumonia type: due to unspecified organism Laterality: unspecified laterality Lung location: unspecified part of lung Qualified Code(s): J18.9 - Pneumonia, unspecified organism Hospitalist: Subjective Interval history: Follow-up pneumonia, morbid obesity, and splenomegaly. The patient had an episode of some chest pressure this morning. It occurred while she was at rest. She got better with some morphine. There was no radiation, or worsening dyspnea, or nausea associated. She continues with the cough. The area of erythema of the right forearm has improved with no specific management. She is tolerating liquids, and thinks that she might be able to try some solid food. Pulmonary has discontinued her IV fluids. She is continuing vancomycin and Zosyn. I reviewed her CT of the abdomen with radiology. The study was of poor quality due to body size, but radiology was not able to diagnose any cirrhosis or evidence of hepatic steatosis. Exam - Constitutional Vitals: Period Temp Pulse Resp BP Sys/Meadows Pulse Ox Last 24 Hr 96.7 F-98.6 F 81-101 17-34 135-176/65-92 9-100 Vital signs are noted above. Heart is regular with distant tones and no murmur. Lungs are notable for a few scattered rhonchi. Abdomen is soft with positive bowel sounds. Erythema of the right upper extremity has resolved spontaneously She is awake and conversant. Results - Labs CBC & BMP: 04/10/17 12:14 04/10/17 09:04
[2017-04-11] MEDS ORDERED: MELOXICAM 7.5 MG TABLET PO PRN (10:23)
[2017-04-11] MEDS ORDERED: ACETAMINOPHEN 325 MG TABLET PO PRN (10:23)
--- NOTE | 2017-04-11 10:23 | Pulmonology Progress Note ---
Pulmonary - PN: Subj Interval history: The patient is a 61-year-old lady that is morbidly obese came in with pneumonia. She says she had an okay night but is coughing some. She also feels like she has a little chest pressure. Her blood pressure is a little elevated. She says her breathing is doing okay. She does not look too badly at present. Exam (Progress Note) - Constitutional Vitals: Period Temp Pulse Resp BP Sys/Meadows Pulse Ox Last 24 Hr 96.7 F-98.6 F 81-101 17-34 135-176/65-92 9-100 Exam: General appearance: no acute distress (She looks comfortable lying in bed. She is not having any distress.), morbidly obese - Head Head exam: Present: normal inspection, normocephalic - Eye Eye exam: Present: EOMI. Absent: scleral icterus Pupils: Present: MACI - ENT ENT exam: Present: normal exam - Neck Neck exam: Absent: lymphadenopathy, thyromegaly - Respiratory Respiratory exam: Present: She has fair breath sounds bilaterally and is moving air okay without a lot of wheezing. - Cardiovascular Cardiovascular exam: Present: regular rate and rhythm. Her blood pressure is a little elevated. Her heart rate is also elevated. Absent: gallop, systolic murmur - GI/Abdominal GI/Abdominal exam: Present: hypoactive bowel sounds, soft, other (She has a very large abdomen). Absent: organomegaly, tenderness - Extremities Exam Extremities exam: Absent: calf tenderness, edema - Neurological Exam Neurological exam: Present: alert, oriented X3, CN II-XII intact - Psychiatric Psychiatric exam: Present: normal affect - Skin Skin exam: Present: warm, dry Results - Labs CBC & BMP: 04/10/17 12:14 04/10/17 09:04 Assessment and Plan (1) Microcytic anemia Status: Acute Assessment and plan: Her hematocrit has been around 30 and she has been evaluated by hematology. Current Visit: No (2) Pneumonia Status: Acute Assessment and plan: Patient has mild pneumonia and is getting better. She still has some coughing however. Current Visit: Yes Qualifiers: Pneumonia type: due to unspecified organism Laterality: unspecified laterality Lung location: unspecified part of lung Qualified Code(s): J18.9 - Pneumonia, unspecified organism (3) Diabetes mellitus Status: Acute Assessment and plan: Her glucoses being monitored and it is 176 today. Current Visit: Yes (4) Splenomegaly Status: Acute Assessment and plan: The patient has a large spleen and is being evaluated at present. Current Visit: Yes (5) Morbid obesity Status: Acute Assessment and plan: The patient has morbid obesity and is going to be evaluated for CPAP at night. She says her breathing is doing okay at present. Current Visit: Yes
[2017-04-11] MEDS: VANCOMYCIN INJ 1,750 MG in SODIUM CHLORIDE 0.9% 500 ML IV SCH (10:52)
[2017-04-11] MEDS: LABETALOL 100 MG TABLET PO SCH ×2 (10:57→22:58)
[2017-04-11] MEDS: LORATADINE 10 MG TABLET PO SCH (10:58)
[2017-04-11] MEDS: PREGABALIN 75 MG CAPSULE PO SCH ×2 (10:58→22:58)
[2017-04-11] MEDS: glipiZIDE 5 MG TABLET PO SCH (16:47)
[2017-04-11] MEDS ORDERED: LOVASTATIN 20 MG TABLET PO SCH (17:00)
[2017-04-11] MEDS: ENOXAPARIN 40 MG/0.4 ML SYRINGE SUBCUT SCH (22:59)
[2017-04-12] MEDS: ALBUTEROL/IPRATROPIUM 3 ML NEB RESP TX SCH ×2 (00:45→08:25)
[2017-04-12] MEDS: PIPERACILLIN/TAZOBACTAM 3,375 MG in SODIUM CHLORIDE 0.9% 100 ML IV SCH (06:06)
[2017-04-12] MEDS ORDERED: LEVOTHYROXINE 50 MCG TABLET PO SCH (07:00)
[2017-04-12 07:35] LABS: Albumin (SPE) 3.1 G/DL (3.2-5.3); Albumin (SPE) Rel % 50.4 %; Alpha 1 (SPE) 0.3 G/DL (0.1-0.4); Alpha 1 (SPE) Rel % 5.5 %; Alpha 2 (SPE) 0.8 G/DL (0.4-1.0); Alpha 2 (SPE) Rel % 13.1 %; Beta (SPE) 0.8 G/DL (0.5-1.1); Beta (SPE) Rel % 13.5 %; Gamma (SPE) 1.1 G/DL (0.7-1.7); Gamma (SPE) Rel % 17.5 %; Total Protein (Chem) 6.1 G/DL (6.4-8.3)
--- NOTE | 2017-04-12 07:47 | Pulmonology Progress Note ---
Pulmonary - PN: Subj Interval history: This 61-year-old female has morbid obesity. She comes in with bilateral infiltrates and yellow sputum and fever. Clearly has pneumonia. This came about while she was at a senior living and must be considered healthcare facility associated. She is feeling a little better today. She is using her BiPAP at night. ABG showed a PCO2 of 43. Thus it appears that she does not have jayme obesity hypoventilation syndrome. She does have obstructive sleep apnea. 04/09/2017 patient is feeling a little better. She relates that she has been vomiting. She tells me that she had the first sleep study done on apparently at [place]. She was due to have a second 1 but did not go back. She is not currently using BiPAP as I have been told. We need to have Dr. Vargas to see her and see where we stand there. 04/12/2017 patient is feeling a little better. Chest x-ray actually looks a little bit better as well. The left midlung infiltrate is improved. Exam (Progress Note) - Constitutional Vitals: Period Temp Pulse Resp BP Sys/Meadows Pulse Ox Last 24 Hr 96.6 F-97.2 F 74-135 17-34 110-176/51-90 91-100 Exam: Patient is responsive vital signs normal. Pupils react to light. Throat is clear. Neck supple no bruits. She has shows a few coarse rhonchi. Heart normal rate and rhythm no murmurs. Abdomen grand obese unable to palpate abdominal organs. Extremities no clubbing cyanosis edema. Calves nontender. Results - Labs CBC & BMP: 04/10/17 12:14 04/10/17 09:04 Lab Results: I have reviewed the past 24 hour labs - Diagnostic Findings Procedure: Chest x-ray: image reviewed by me (Left midlung infiltrate much improved.) Assessment and Plan (1) Morbid obesity Status: Acute Assessment and plan: Patient weighs 352 pounds. May well have obesity hypoventilation syndrome. Need to check blood gases and see if her PCO2 is elevated. She may be helped with BiPAP at night. May want to have sleep physician see her. 04/08/2017 PCO2 was 43. This is not high enough to make the call of obesity hypoventilation. Certainly appears that she does have obstructive sleep apnea. Keep oxygen saturations in the low 90s. 04/09/2017 she does not have obesity hypoventilation syndrome. However does need to lose a good bit of weight. 04/12/2017 will require weight loss long-term. Current Visit: Yes (2) Pneumonia Status: Acute Assessment and plan: Fever to 101.9, cough with yellow sputum production, bibasilar consolidation as well as infiltrate in the lingula and right upper lobe all consistent with bronchopneumonia. This started while she was at a senior living swing bed after being in the hospital. Must be considered healthcare facility associated. Agree with broad-spectrum antibiotics. 04/08/2017 she has bilateral bronchopneumonia. This was seen best in the posterior bases on CT. She has consolidation on both sides. Pneumonia started while she was in a swing bed. Thus it is healthcare facility associated. 04/09/2017 has bilateral bronchopneumonia. Continuing broad-spectrum antibiotics. Recheck chest x-ray Wednesday. 04/12/2017 chest x-ray does look better. Cultures negative. Continuing antibiotics. Current Visit: Yes Qualifiers: Pneumonia type: due to unspecified organism Laterality: unspecified laterality Lung location: unspecified part of lung Qualified Code(s): J18.9 - Pneumonia, unspecified organism (3) SIRS (systemic inflammatory response syndrome) Status: Acute Assessment and plan: May bump with steroids because of the pneumonia. 04/12/2017 inflammatory response seems improved. Current Visit: Yes (4) Splenomegaly Status: Acute Assessment and plan: She has a rather large spleen seen on abdominal CT. Hematology is to review. She is anemic. 04/08/2017 splenomegaly along with pancytopenia is going to be evaluated by hematology today. 04/09/2017 defer to hematology for evaluation 04/12/2017 hematology following. Current Visit: Yes (5) Microcytic anemia Status: Acute Assessment and plan: Hematology to review. 04/09/17 has pancytopenia. Being evaluated by hematology. Current Visit: No (6) Poorly controlled diabetes mellitus Status: Acute Assessment and plan: Blood sugars in the upper 100s which is actually pretty good control. Going to put her on 40 mg a day of Solu-Medrol for 3 days because of her acute pneumonia. This may aggravate her glucoses. 04/08/2017 her glucoses are in the 100s and 200s. She is on steroids. She has a history of poor control before she came into the hospital. Hopefully this will improve as we reduce steroids. 04/09/2017 sliding scale coverage. Steroids will aggravate. 04/12/2017 glucoses in the 200 range. Current Visit: No
[2017-04-12 08:19] VITALS: BP 109/74
[2017-04-12] MEDS ORDERED: LACTULOSE 20 GM/30 ML UDCUP PO SCH (09:00)
[2017-04-12] MEDS ORDERED: FERROUS SULFATE 325 MG TABLET PO SCH (09:00)
[2017-04-12] MEDS ORDERED: MULTIVITAMIN (CENTRUM) TABLET PO SCH (09:00)
[2017-04-12] MEDS ORDERED: ASPIRIN EC 81 MG TABLET PO SCH (09:00)
--- NOTE | 2017-04-12 09:44 | XRay Report ---
History: Bilateral bronchopneumonia Date: 04/12/2017 Study: Chest x-ray AP portable Comparison exam: April 07, 2017 There is continued cardiomegaly. The mediastinal contours are similar. The pulmonary vasculature is upper normal. There is no gross pleural effusion. There is some mild patchy and strandy atelectasis/infiltrate in the right infrahilar region and left perihilar and infrahilar region as before. There is slightly improved aeration on the left. There is no new or worsening infiltrate. Osseous structures are similar. Impression: Continued bilateral atelectasis/infiltrate. Mild interval improvement on the left PROCEDURE INTERPRETED AT [facility] DEPARTMENT OF RADIOLOGY Final Report Signed by: Dr. Niurka Mendoza
--- NOTE | 2017-04-12 10:19 | Hospitalist Progress Note ---
Exam - Constitutional Vitals: Period Temp Pulse Resp BP Sys/Meadows Pulse Ox Last 24 Hr 96.6 F-97.5 F 74-135 18-24 109-137/51-74 91-100 Results - Labs CBC & BMP: 04/10/17 12:14 04/10/17 09:04
--- NOTE | 2017-04-12 10:33 | Discharge Summary ---
Hospital Course - Hospital Course Hospital Course: Ms. Hooker is a 61 year old black female PMHx very obese, HTN, DM, Arthritis, ? CVA (family was told that she may have had a stroke in the past) presented to the ED from [facility] for further evaluation of shortness of breath, fever reported as 102.0. Patient diagnosed with bilateral bronchial pneumonia. Dr. Reynoso from pulmonary was consulted. Patient was started on Zosyn and vancomycin. Patient was started on breathing treatments with duo nebs and as needed albuterol. Her breathing has improved and she is stable to return to the detention on oxygen. She is morbidly obese and has risk factors for obstructive sleep apnea. I have asked Dr. Vargas to see her to schedule her for an outpatient sleep study. Patient also has insulin-dependent diabetes with a hemoglobin A1c of 8.5. Her Lantus was discontinued due to low blood sugars and she was continued on glipizide. Her blood sugars have improved and her creatinine is down to 0.9. We have restarted her Lantus but at a lower dose. Patient is mildly anemic but has not required any blood transfusions and is currently on Protonix. Patient has unexplained splenomegaly and lymphadenopathy and Dr. Bravo has seen her in consultation. There is no evidence on CT to suggest cirrhosis at this point. Patient also has pancytopenia and may indeed still have cirrhosis due to fatty liver and is just not well seen on the CT at this time. Dr. Bravo has not recommended any further workup at this time. Patient will be discharged to return to the detention today. - Time spent with patient Time with patient DS: Greater than 30 minutes (50 min) Discharge Plan - Discharge Data Disposition: Disch/Xfer to Snf Condition at Discharge: Stable Discharge Diet: diabetic diet Activity: resume usual activities as tolerated, wear oxygen at all times (keep oxygen saturation 88-91 ) Hygiene: no restrictions Weight Bearing at Discharge: full weight bearing Driving: not until seen by doctor - Discharge Medications New Albuterol/Ipratropium Neb [Duoneb] 3 ml RESP TX RT Q6H guaiFENesin/DM ER 600-30 [Mucinex Dm 600-30 MG] 1 tablet PO BID tablet Insulin Lispro [HumaLOG] See Protocol SUBCUT ACHS unit Pantoprazole Tab [Protonix Tab] 40 mg PO DAILY tablet Polyethylene Glycol Powder [Miralax] 17 gm PO DAILY Albuterol Neb [Proventil Neb] 2.5 mg RESP TX RT Q4H PRN PRN Reason: Shortness Of Breath/Wheezing Levofloxacin Tab [Levaquin Tab] 750 mg PO DAILY #3 tablet Continue Pregabalin [Lyrica] 75 mg PO BID glipiZIDE [Glipizide] 10 mg PO BIDAC Labetalol Tab [Trandate Tab] 100 mg PO BID Levothyroxine Tab [Synthroid Tab] 50 mcg PO DAILY@0700 #30 tablet Zinc Oxide [Zinc Oxide 40% Oint] 1 applic TOP Q8H PRN PRN Reason: REDNESS Multivitamin [One Daily Multivitamin] 1 each PO QAM Loratadine [Claritin] 10 mg PO QDX21 Lactulose Liquid [Chronulac] 30 ml PO QAM Acetaminophen Tab [Tylenol Tab] 650 mg PO Q4H PRN PRN Reason: Pain Aspirin EC Tab 81 mg PO QAM Meloxicam 7.5 mg PO Q12H PRN PRN Reason: Pain Lovastatin [Mevacor] 20 mg PO DAILY W/SUPPER #30 tablet Changed Insulin Glargine [Lantus] 10 unit SUBCUT BEDTIME #1000 unit Discontinued Ferrous Sulfate 325 mg PO QAM Insulin Regular [HumuLIN R] 0 unit SUBCUT BID diphenhydrAMINE CAP [Benadryl Cap] 25 mg PO Q6H PRN PRN Reason: Itching HYDROcodone/ACETAMIN 7.5-325 [[place] 7.5-325] 1 tablet PO BIDX7 - Follow Up or Referral Follow Up: Dunia Vargas MD [Physician] - 2 Weeks - Forms/Instructions Exam - Constitutional Vitals: Period Temp Pulse Resp BP Sys/Meadows Pulse Ox Last 24 Hr 96.6 F-97.5 F 74-135 18-24 109-137/51-74 91-100 General appearance: no acute distress, morbidly obese - Respiratory Respiratory exam: Present: clear to auscultation bilaterally, decreased breath sounds. Absent: rhonchi, wheezes - Cardiovascular Cardiovascular exam: Present: regular rate and rhythm. Absent: systolic murmur - GI/Abdominal GI/Abdominal exam: Present: normal bowel sounds, soft. Absent: tenderness Discharge Results Procedures and tests throughout hospitalization: Pending Orders 04/13/17 04:00 Basic Metabolic Panel IN AM 04/13/17 08:30 Vancomycin,Trough Timed Labs on day of discharge: Labs from last 24 hours 04/12/17 04/11/17 04/11/17 07:42 22:31 16:36 POC Glucose 201 H 193 H 205 H Pro Electrophoresis Int Serum Total Protein PEP Albumin (PEP) Albumin (relative) Rdlhq-3-Imzsgcmq Blwjh-7-Nkvtzeic rel Fylcf-3-Ukszzsdc Irnbt-4-Awzycmmn rel Iwxj-6-Txgdwjci Uzbe-4-Flzahogj rel Gamma Globulins Gamma Globulins rel MORIS Screen 04/11/17 04/09/17 11:37 10:32 POC Glucose 214 H Pro Electrophoresis Int Serum Total Protein PEP 6.1 L Albumin (PEP) 3.1 L Albumin (relative) 50.4 Onwau-7-Tyetjzfv 0.3 Yvdij-8-Irtyxpsf rel 5.5 Wmpab-7-Vioitrli 0.8 Rjktg-5-Fkvmsmag rel 13.1 Lvlm-0-Bnxhlgjo 0.8 Puxc-0-Mfjhxmtt rel 13.5 Gamma Globulins 1.1 Gamma Globulins rel 17.5 MORIS Screen Negative (<1:160) DS: Provider Date of admission: 04/05/17 10:09 Primary care physician: . No PCP Attending physician on admission: Myron Albright MD Consults: 04/05/17 10:40 Consult to Pharmacy [CONS] Routine Reason for Pharmacy Consult: Dose/Manage Vancomycin 04/05/17 10:44 Consult to Case Mgmt/Social Srvs [CONS] Routine Reason for Case Mgmt/Social Srvs: Discharge Planning 04/07/17 11:48 Consult to Physician [CONS] Routine Comment: Consulting Provider: Jose Bravo When should Consulting Provider be notified: Now Person Notified: MOUNA Date Notified: 04/07/17 Time Notified: 12:30 04/07/17 13:45 Consult to Physician [CONS] Routine Comment: Please evaluate for resp failure and pneumonia Consulting Provider: Zane Reynoso Person Notified: cal 04/09/17 07:40 Consult to Sleep Center [CONS] Routine Reason for Sleep Center: Sleep Center Physician Consult Comment: Probable sleep apnea. Has had 1 of 2 planned sleep study she reports Discharging clinician: Brenda Sims MD
[2017-04-12] MEDS: LORATADINE 10 MG TABLET PO SCH (11:20)
[2017-04-12] MEDS: PANTOPRAZOLE 40 MG TABLET PO SCH (11:20)
[2017-04-12] MEDS: VANCOMYCIN INJ 1,750 MG in SODIUM CHLORIDE 0.9% 500 ML IV SCH (11:20)
[2017-04-12] MEDS: LABETALOL 100 MG TABLET PO SCH (11:20)
[2017-04-12] MEDS: PREGABALIN 75 MG CAPSULE PO SCH (11:20)
[2017-04-12] MEDS: INSULIN LISPRO 100 UNIT/ML SUBCUT SCH ×2 (11:35→12:40)
[2017-04-12] MEDS: glipiZIDE 5 MG TABLET PO SCH (11:35)
--- NOTE | 2017-04-12 12:43 | Sleep Medicine Consult ---
Assessment and Plan (1) Obstructive sleep apnea Status: Acute Assessment and plan: This patient has not been treated but needs to be. I certainly believe that she still continues to have severe sleep apnea. We can see if we can go ahead and start her on auto titration CPAP. However follow-up would be difficult because of her condition. Follow-up in the sleep clinic may be able to be everted if her machine is least by the alf. Insurance would otherwise require [id number] visits for compliance to maintain CPAP therapy. We will have to check and see if [facility] has a relationship with a [employer] company and if they will lay CPAP for her therapy. She certainly needs it. Current Visit: Yes (2) Hypertension Status: Chronic Assessment and plan: The prevalence rate for obstructive sleep apnea patients with hypertension is 35 %. That rate can be as high as 80% in patients who require 4 or more medications for blood pressure control. Current Visit: No Qualifiers: Hypertension type: unspecified Qualified Code(s): I10 - Essential (primary ) hypertension (3) Diabetes mellitus Status: Acute Assessment and plan: The prevalence rate for obstructive sleep apnea in patients with type 2 diabetes can be as high as 86%. Those patients with moderate to severe obstructive sleep apnea are at a greater risk for diabetic nephropathy and neuropathy. Compliance with CPAP therapy for these patients can lead to improvement in glycemic control and improvement in insulin sensitivity. Current Visit: Yes History of Present Illness Chief complaint: Sleep apnea History of present illness: Ms. Hooker is a 61 year old female who was diagnosed with obstructive sleep apnea several years ago at [facility]. She had severe sleep apnea at that time, having a diagnostic AHI of 42.4. She weighed 372 pounds then. She did not follow-up for CPAP titration. She is now a alf resident and has been admitted on this occasion for pneumonia. She has been treated and is to be discharged today. She does sleep with oxygen at the alf and does snore and sometimes awakens from sleep short of breath. She does have symptoms of fatigue and sleepiness. Home Medications Medication Instructions Recorded Confirmed Type Aspirin EC Tab 81 mg PO QAM 02/24/17 04/05/17 History Labetalol Tab [Trandate Tab] 100 mg PO BID 02/24/17 04/05/17 History Meloxicam 7.5 mg PO Q12H PRN 02/24/17 04/05/17 History Pregabalin [Lyrica] 75 mg PO BID 02/24/17 04/05/17 History glipiZIDE [Glipizide] 10 mg PO BIDAC 02/24/17 04/05/17 History Levothyroxine Tab [Synthroid Tab] 50 mcg PO DAILY@0700 #30 tablet 03/02/1704/05 Rx Lovastatin [Mevacor] 20 mg PO DAILY W/SUPPER #30 tablet 03/02/17 04/05/17 Rx Acetaminophen Tab [Tylenol Tab] 650 mg PO Q4H PRN 04/05/17 04/05/17 History Lactulose Liquid [Chronulac] 30 ml PO QAM 04/05/17 04/05/17 History Loratadine [Claritin] 10 mg PO QDX21 04/05/17 04/05/17 History Multivitamin [One Daily 1 each PO QAM 04/05/17 04/05/17 History Multivitamin] Zinc Oxide [Zinc Oxide 40% Oint] 1 applic TOP Q8H PRN 04/05/17 04/05/17 History Albuterol Neb [Proventil Neb] 2.5 mg RESP TX RT Q4H PRN 04/12/17 Rx Albuterol/Ipratropium Neb [Duoneb] 3 ml RESP TX RT Q6H 04/12/17 Rx Insulin Glargine [Lantus] 10 unit SUBCUT BEDTIME #1000 unit 04/12/17 04/05/17 Rx Insulin Lispro [HumaLOG] See Protocol SUBCUT ACHS unit 04/12/17 Rx Levofloxacin Tab [Levaquin Tab] 750 mg PO DAILY #3 tablet 04/12/17 Rx Pantoprazole Tab [Protonix Tab] 40 mg PO DAILY tablet 04/12/17 Rx Polyethylene Glycol Powder 17 gm PO DAILY 04/12/17 Rx [Miralax] guaiFENesin/DM ER 600-30 [Mucinex 1 tablet PO BID tablet 04/12/17 Rx Dm 600-30 MG] Allergies Allergy/AdvReac Type Severity Reaction Status Date / Time No Known Allergies Allergy Verified 02/24/17 11:35 Review of systems: Otherwise unremarkable from a sleep medicine standpoint. Exam ([place]) H&P - Constitutional Vitals: Period Temp Pulse Resp BP Sys/[place] Pulse Ox Last 24 Hr 97.2 F-97.5 F 74-135 18-24 109-118/51-74 91-100 Exam: She is chronically ill-appearing. Pupils equal round reactive to light and accommodation extraocular movements intact. Oropharynx with a class IV Mallampati exam. Neck is large and supple without adenopathy. Chest with symmetrical breath sounds without significant wheeze or rhonchi. Cardiac exam reveals a regular rhythm without murmur or gallop. Abdomen obese nontender without palpable hepatosplenomegaly or mass. Extremities are without significant clubbing or edema. Neurologically, she is grossly intact. Medical,Surgical,& Family Hx - Medical History Cardio: History of: Hypertension Psychological: History of: Anxiety Disorders Endocrine: History of: Diabetes Mellitus (NIDDM), Dyslipidemia, Thyroid Disorder Rheumatology: History of;: Rheumatological Problems (arthritis) Respiratory: History of: Pneumonia Musculoskeletal: History of: Musculoskeletal Problems (arthritis) Hematology: History of: Anemia Other: History of: Miscellaneous Medical Problems (morbid obesity) - Social History Smoking Status: Never smoker Frequency of Alcohol Use: None Type of Drug Use: None Results - Labs CBC & BMP: 04/10/17 12:14 04/10/17 09:04 Labs: Blood gases did not reveal significant CO2 retention. Specialty Discharge - Follow Up or Referrals Follow up with: Dunia Vargas MD [Physician] - 04/27/17 9:00 am (AT [facility]...[phone])
[2017-04-12] MEDS: POLYETHYLENE GLYCOL POWDER 17 GM PACK PO SCH (12:49)
[2017-04-12] MEDS: guaiFENesin/DM ER 600-30 MG TABLET PO SCH (12:50)
== END 2017-04-12 13:40 | DRG 871 ==
LOC: N.ED 07:51 → SUATTDRO 10:09 → N.EDINP 10:09 → N.2E 14:52
PROVIDERS: ADMIT Internal Medicine Infectious Disease; ATTEND Internal Medicine

== ENCOUNTER 2017-08-02 04:33 | Observation (INO) ==
[2017-08-02 06:47] LABS: Lactic Acid 1.4 MMOL/L (0.4-2.0)
[2017-08-02 06:50] LABS: Albumin 2.7 G/DL (3.4-5.0); Bilirubin,Total 0.6 MG/DL (0.2-1.0); Calcium 7.8 MG/DL (8.5-10.1); Free T4 (Free Thyroxine) 1.36 NG/DL (0.76-1.46); Osmolality,Calculated 285.1 MOS/KG (273-304); Potassium 4.7 MMOL/L (3.5-5.1); Thyroid Stimulating Hormone 0.198 uIU/ml (0.358-3.74); Total Protein 5.4 G/DL (6.4-8.3)
[2017-08-02] MEDS: DEXTROSE 5% NACL 0.45% 1,000 ML IV SCH (07:08)
[2017-08-02 07:11] LABS: Eosinophils # 0.2 10*3/uL (0.0-0.87); Eosinophils % 5.3 % (0.00-10.9); Hematocrit 39.1 VOL% (35.7-47.0); Immature Granulocytes % 0.3 %; Immature Granulocytes Absolute 0.01 #; Lymphocytes # 0.8 10*3/uL (1.4-4.0); Lymphocytes % 22.2 % (21.3-54.2); Mean Corpuscular HGB Conc 28.6 GM/DL (32-36); Mean Corpuscular Hemoglobin 23 PG (27-34); Mean Corpuscular Volume 80.3 FL (87-102); Monocytes # 0.5 10*3/uL (0.11-0.8); Monocytes % 14.8 % (1.7-12.7); Neutrophils # 1.9 10*3/uL (1.4-7.4); Neutrophils % 57.4 % (38.7-73.9); Platelet Count 101 T/CUMM (130-400); Red Blood Count 4.87 MC/CUMM (3.8-5.5); White Blood Count 3.4 T/CUMM (4-12)
[2017-08-02 07:15] LABS: Hemoglobin 11.2 GM/DL (12.0-16.0)
[2017-08-02 07:22] LABS: Hypochromasia 1+; Microcytosis 1+
[2017-08-02 07:23] LABS: Ovalocytes Few; Platelet Estimate Decreased
[2017-08-02] MEDS ORDERED: GLUCAGON 1 MG VIAL IM PRN (08:09)
[2017-08-02] MEDS ORDERED: DEXTROSE 50% 25 GM/50 ML VIAL IV PRN (08:09)
[2017-08-02] MEDS ORDERED: ONDANSETRON 4 MG/2 ML VIAL IV PRN (08:09)
[2017-08-02] MEDS ORDERED: ACETAMINOPHEN 325 MG TABLET PO PRN (08:09)
[2017-08-02] MEDS ORDERED: MELOXICAM 7.5 MG TABLET PO PRN (08:12)
[2017-08-02] MEDS ORDERED: FUROSEMIDE 20 MG TABLET PO SCH (09:00)
[2017-08-02] MEDS ORDERED: PANTOPRAZOLE 40 MG TABLET PO SCH (09:00)
[2017-08-02] MEDS: POTASSIUM CHLORIDE 10 MEQ TABLET PO SCH (12:16)
[2017-08-02] MEDS: PREGABALIN 75 MG CAPSULE PO SCH ×2 (12:16→20:13)
[2017-08-02] MEDS: LABETALOL 100 MG TABLET PO SCH ×2 (12:16→20:13)
[2017-08-02] MEDS: MULTIVITAMIN (CENTRUM) TABLET PO SCH (12:16)
[2017-08-02] MEDS: PANTOPRAZOLE 40 MG TABLET PO SCH (12:17)
[2017-08-02] MEDS: FUROSEMIDE 40 MG/4 ML VIAL IV SCH ×2 (12:17→18:52)
[2017-08-02] MEDS: ASPIRIN EC 81 MG TABLET PO SCH (12:17)
[2017-08-02] MEDS: ENOXAPARIN 40 MG/0.4 ML SYRINGE SUBCUT SCH (12:19)
[2017-08-02] MEDS: BISACODYL 5 MG TABLET PO SCH (12:21)
[2017-08-02] MEDS: INSULIN LISPRO 100 UNIT/ML SUBCUT SCH ×3 (16:38→21:14)
[2017-08-02] MEDS: LOVASTATIN 20 MG TABLET PO SCH (18:52)
[2017-08-03 06:25] LABS: Calcium 7.9 MG/DL (8.5-10.1); Osmolality,Calculated 286.1 MOS/KG (273-304); Potassium 4.7 MMOL/L (3.5-5.1)
[2017-08-03] MEDS: LEVOTHYROXINE 50 MCG TABLET PO SCH (06:41)
[2017-08-03] MEDS: DEXTROSE 5% NACL 0.45% 1,000 ML IV SCH (09:29)
[2017-08-03] MEDS: FUROSEMIDE 40 MG/4 ML VIAL IV SCH ×2 (09:29→17:45)
[2017-08-03] MEDS: ENOXAPARIN 40 MG/0.4 ML SYRINGE SUBCUT SCH (09:30)
[2017-08-03] MEDS: PANTOPRAZOLE 40 MG TABLET PO SCH (09:30)
[2017-08-03] MEDS: LABETALOL 100 MG TABLET PO SCH ×2 (09:30→20:44)
[2017-08-03] MEDS: POTASSIUM CHLORIDE 10 MEQ TABLET PO SCH (09:30)
[2017-08-03] MEDS: PREGABALIN 75 MG CAPSULE PO SCH ×2 (09:30→20:44)
[2017-08-03] MEDS: BISACODYL 5 MG TABLET PO SCH (09:30)
[2017-08-03] MEDS: MULTIVITAMIN (CENTRUM) TABLET PO SCH (09:30)
[2017-08-03] MEDS: ASPIRIN EC 81 MG TABLET PO SCH (09:30)
[2017-08-03] MEDS: INSULIN LISPRO 100 UNIT/ML SUBCUT SCH ×4 (10:35→20:46)
[2017-08-03] MEDS ORDERED: TUBERCULIN SKIN TEST 0.1 ML SYRINGE INTRADERM ONE ×2 (13:40→13:41)
[2017-08-03] MEDS ORDERED: ZINC OXIDE PASTE 113 GM TUBE TOP PRN (14:24)
[2017-08-03] MEDS ORDERED: SKIN HEALING OINT (AQUAPHOR) 50 GM TUBE TOP PRN (14:24)
[2017-08-03] MEDS: LOVASTATIN 20 MG TABLET PO SCH (17:46)
[2017-08-04] MEDS: LEVOTHYROXINE 50 MCG TABLET PO SCH (06:43)
[2017-08-04 09:03] VITALS: BP 150/63
[2017-08-04] MEDS: ENOXAPARIN 40 MG/0.4 ML SYRINGE SUBCUT SCH (09:03)
[2017-08-04] MEDS: FUROSEMIDE 40 MG/4 ML VIAL IV SCH (09:03)
[2017-08-04] MEDS: INSULIN LISPRO 100 UNIT/ML SUBCUT SCH (09:04)
[2017-08-04] MEDS: PANTOPRAZOLE 40 MG TABLET PO SCH (09:04)
[2017-08-04] MEDS: BISACODYL 5 MG TABLET PO SCH (09:04)
[2017-08-04] MEDS: POTASSIUM CHLORIDE 10 MEQ TABLET PO SCH (09:04)
[2017-08-04] MEDS: ASPIRIN EC 81 MG TABLET PO SCH (09:04)
[2017-08-04] MEDS: MULTIVITAMIN (CENTRUM) TABLET PO SCH (09:04)
[2017-08-04] MEDS: LABETALOL 100 MG TABLET PO SCH (09:04)
[2017-08-04] MEDS: PREGABALIN 75 MG CAPSULE PO SCH (09:04)
== END 2017-08-04 11:10 | disposition home or self-care (01) ==
LOC: EDUNIT# → EDBD → N.EDINP 04:33 → N.ED 04:33 → N.EDINP 09:37 → N.4E 09:46
PROVIDERS: ADMIT Family Medicine; ATTEND Family Medicine

== ENCOUNTER 2017-08-31 09:06 | Inpatient (IN) ==
[2017-08-31 10:23] LABS: Basophils % 0.3 % (0.0-0.8); Eosinophils # 0.1 10*3/uL (0.0-0.87); Eosinophils % 1.6 % (0.00-10.9); Hematocrit 39.1 VOL% (35.7-47.0); Immature Granulocytes % 0.8 %; Immature Granulocytes Absolute 0.03 #; Lymphocytes # 0.9 10*3/uL (1.4-4.0); Lymphocytes % 23.3 % (21.3-54.2); Mean Corpuscular HGB Conc 28.1 GM/DL (32-36); Mean Corpuscular Hemoglobin 23 PG (27-34); Monocytes # 0.7 10*3/uL (0.11-0.8); Monocytes % 18.8 % (1.7-12.7); Neutrophils # 2.1 10*3/uL (1.4-7.4); Neutrophils % 55.2 % (38.7-73.9); Platelet Count 102 T/CUMM (130-400); Red Blood Count 4.83 MC/CUMM (3.8-5.5); White Blood Count 3.8 T/CUMM (4-12)
[2017-08-31 10:31] LABS: INR 1.1; PT Patient Result 11.1 SECS; Partial Thromboplastin Time 25.7 SECS (0-40)
[2017-08-31 11:02] LABS: Alanine Aminotransferase 15 U/L (13-56); Albumin 3.2 G/DL (3.4-5.0); Alkaline Phosphatase 84 U/L (45-117); Aspartate Amino Transferase 15 U/L (0-37); Blood Urea Nitrogen 34 MG/DL (7-18); Calcium 8.6 MG/DL (8.5-10.1); Glucose 185 MG/DL (74-106); Osmolality,Calculated 298.8 MOS/KG (273-304); Sodium 144 MMOL/L (136-145); Total Protein 6.5 G/DL (6.4-8.3); Troponin I Only < 0.015 NG/ML (0.00-0.045)
[2017-08-31 11:06] LABS: Amorphous Crystals,Urine Occasional /HPF (Few); Apearance,Urine CLOUDY (Clear); Bacteria,Urine Many /HPF (Few); Bilirubin,Urine Negative (Negative); Blood, Urine Small mg/dL (Negative); Glucose,Urine (UA) Negative (Negative); Ketones,Urine 5 mg/dL (Negative); Mucus,Urine Moderate /LPF (Occasional); Nitrite,Urine Negative (Negative); Protein,Urine 100 MG/DL; RBC,Urine 2 /HPF (0-4); Urine Color Amber (Yellow); Urine Specific Gravity 1.023 (1.001-1.035); WBC,Urine 15 /HPF (0-6)
[2017-08-31 11:09] LABS: Band Neutrophils 2 % (0-10); Eosinophils 5 % (0-10); Giant Platelets Few; Hypochromasia 1+; Lymphocytes 21 % (20-55); Ovalocytes Slight; Platelet Estimate Decreased; Segmented Neutrophils 55 % (50-85); Total Cells Counted 100
[2017-08-31] MEDS ORDERED: cefTRIAXone 1,000 MG in SODIUM CHLORIDE 0.9% 100 ML IV STA (12:23)
[2017-08-31] MEDS ORDERED: cefTRIAXone 1,000 MG VIAL ONE (13:29)
[2017-08-31 13:30] LABS: ABG Base Excess 8.4 MMOL/L (-2.5-2.5); ABG HCO3 38.8 MMOL/L (20-26); ABG PH 7.235 (7.35-7.45); ABG PO2 89.5 MM HG (80-95); ABG TCO2 41.7 MMOL/L (23-27); Allen Test Positive
[2017-08-31 13:35] LABS: ABG PCO2 93.7 MM HG (35-48)
[2017-08-31 13:52] LABS: Barbiturates Screen,Urine Negative (Negative); Benzodiazepines Screen,Urine Negative (Negative); Cannabinoid Screen,Urine Negative (Negative); Opiate Screen,Urine Negative (Negative); Phencyclidine Screen,Urine Negative (Negative)
[2017-08-31] MEDS ORDERED: GLUCAGON 1 MG VIAL IM PRN (14:33)
[2017-08-31] MEDS ORDERED: ONDANSETRON 4 MG/2 ML VIAL IV PRN (14:33)
[2017-08-31] MEDS ORDERED: DEXTROSE 50% 25 GM/50 ML VIAL IV PRN (14:33)
[2017-08-31] MEDS ORDERED: TUBERCULIN SKIN TEST 0.1 ML SYRINGE INTRADERM ONE (14:48)
[2017-08-31] MEDS ORDERED: ALBUTEROL/IPRATROPIUM 3 ML NEB RESP TX PRN (15:04)
[2017-08-31] MEDS: FUROSEMIDE 40 MG/4 ML VIAL IV SCH (15:57)
[2017-08-31] MEDS: ENOXAPARIN 40 MG/0.4 ML SYRINGE SUBCUT SCH (15:58)
[2017-08-31] MEDS: INSULIN LISPRO 100 UNIT/ML SUBCUT SCH ×2 (17:46→23:35)
[2017-08-31] MEDS: LABETALOL 100 MG TABLET PO SCH ×2 (17:46→22:29)
[2017-08-31] MEDS: LOVASTATIN 20 MG TABLET PO SCH (17:48)
[2017-08-31 17:55] LABS: ABG Base Excess 10.3 MMOL/L (-2.5-2.5); ABG HCO3 38.5 MMOL/L (20-26); ABG Oxygen Saturation 88.9 % (95-100); ABG PH 7.339 (7.35-7.45); ABG PO2 61.6 MM HG (80-95); ABG TCO2 40.8 MMOL/L (23-27); Allen Test Positive; Pt O2 Delivery Device BIPAP
[2017-08-31 17:57] LABS: ABG PCO2 73.2 MM HG (35-48)
[2017-09-01] MEDS: glipiZIDE 10 MG TABLET PO SCH ×3 (00:15→21:50)
[2017-09-01 03:56] LABS: ABG Base Excess 10.6 MMOL/L (-2.5-2.5); ABG HCO3 37.9 MMOL/L (20-26); ABG Oxygen Saturation 92.8 % (95-100); ABG PCO2 67.3 MM HG (35-48); ABG PH 7.369 (7.35-7.45); ABG PO2 70.4 MM HG (80-95); Allen Test Positive; Pt O2 Delivery Device BIPAP
[2017-09-01 07:02] LABS: Calcium 8.3 MG/DL (8.5-10.1); Osmolality,Calculated 295.7 MOS/KG (273-304); Potassium 4.6 MMOL/L (3.5-5.1)
[2017-09-01 07:06] LABS: Basophils % 0.3 % (0.0-0.8); Eosinophils # 0.1 10*3/uL (0.0-0.87); Eosinophils % 3.3 % (0.00-10.9); Hematocrit 35.4 VOL% (35.7-47.0); Immature Granulocytes % 0.6 %; Immature Granulocytes Absolute 0.02 #; Lymphocytes # 0.9 10*3/uL (1.4-4.0); Lymphocytes % 27.4 % (21.3-54.2); Mean Corpuscular HGB Conc 29.1 GM/DL (32-36); Mean Corpuscular Hemoglobin 23 PG (27-34); Mean Corpuscular Volume 79.7 FL (87-102); Mean Platelet Volume 12.1 FL (9.6-12.0); Monocytes # 0.6 10*3/uL (0.11-0.8); Monocytes % 18.1 % (1.7-12.7); Neutrophils # 1.7 10*3/uL (1.4-7.4); Neutrophils % 50.3 % (38.7-73.9); Platelet Count 98 T/CUMM (130-400); Red Blood Count 4.44 MC/CUMM (3.8-5.5); Red Cell Distribution Width 18.8 % (9.3-17.3); White Blood Count 3.3 T/CUMM (4-12)
[2017-09-01 07:07] LABS: Hemoglobin 10.3 GM/DL (12.0-16.0)
[2017-09-01] MEDS: LEVOTHYROXINE 50 MCG TABLET PO SCH (07:24)
[2017-09-01 07:25] LABS: Eosinophils 10 % (0-10); Lymphocytes 20 % (20-55); Platelet Estimate Decreased; Segmented Neutrophils 57 % (50-85); Total Cells Counted 100
[2017-09-01 07:26] LABS: Giant Platelets Few; Hypochromasia 1+; Microcytosis Slight; Ovalocytes Slight
[2017-09-01] MEDS: INSULIN LISPRO 100 UNIT/ML SUBCUT SCH ×4 (08:42→21:50)
[2017-09-01] MEDS: FUROSEMIDE 40 MG/4 ML VIAL IV SCH ×2 (09:23→17:43)
[2017-09-01] MEDS: ASPIRIN EC 81 MG TABLET PO SCH (09:26)
[2017-09-01] MEDS: PANTOPRAZOLE 40 MG TABLET PO SCH (09:27)
[2017-09-01] MEDS: LABETALOL 100 MG TABLET PO SCH ×2 (09:27→21:50)
[2017-09-01] MEDS: cefTRIAXone 1,000 MG in SYRINGE 1 EACH IV SCH (12:04)
[2017-09-01] MEDS: ACETAMINOPHEN 325 MG TABLET PO PRN (13:30)
[2017-09-01] MEDS ORDERED: cefTRIAXone 1,000 MG in SODIUM CHLORIDE 0.9% 100 ML IV SCH (15:30)
[2017-09-01 17:29] LABS: % Iron Saturation 10.2 % (18-50)
[2017-09-01] MEDS: LOVASTATIN 20 MG TABLET PO SCH (17:44)
[2017-09-01] MEDS: ENOXAPARIN 40 MG/0.4 ML SYRINGE SUBCUT SCH (17:44)
[2017-09-02 03:41] LABS: ABG Base Excess 13.2 MMOL/L (-2.5-2.5); ABG HCO3 38.9 MMOL/L (20-26); ABG Oxygen Saturation 81.7 % (95-100); ABG PCO2 55.9 MM HG (35-48); ABG PO2 46.6 MM HG (80-95); ABG TCO2 40.6 MMOL/L (23-27); Allen Test Positive; Pt O2 Delivery Device CPAP
[2017-09-02] MEDS: LEVOTHYROXINE 50 MCG TABLET PO SCH (06:21)
[2017-09-02 06:23] LABS: Basophils % 0.2 % (0.0-0.8); Eosinophils # 0.2 10*3/uL (0.0-0.87); Eosinophils % 4.1 % (0.00-10.9); Hematocrit 33.7 VOL% (35.7-47.0); Hemoglobin 10.2 GM/DL (12.0-16.0); Immature Granulocytes % 0.5 %; Immature Granulocytes Absolute 0.02 #; Lymphocytes # 1.1 10*3/uL (1.4-4.0); Lymphocytes % 27.3 % (21.3-54.2); Mean Corpuscular HGB Conc 30.3 GM/DL (32-36); Mean Corpuscular Hemoglobin 23 PG (27-34); Mean Corpuscular Volume 76.4 FL (87-102); Mean Platelet Volume 11.5 FL (9.6-12.0); Monocytes % 24.5 % (1.7-12.7); NRBC # 0.06 10*3/uL; Neutrophils # 1.8 10*3/uL (1.4-7.4); Neutrophils % 43.4 % (38.7-73.9); Platelet Count 104 T/CUMM (130-400); Red Blood Count 4.41 MC/CUMM (3.8-5.5); Red Cell Distribution Width 18.8 % (9.3-17.3); White Blood Count 4.2 T/CUMM (4-12)
[2017-09-02 06:39] LABS: Calcium 8.1 MG/DL (8.5-10.1); Osmolality,Calculated 288.1 MOS/KG (273-304); Potassium 4.6 MMOL/L (3.5-5.1)
[2017-09-02 08:20] LABS: Band Neutrophils 1 % (0-10); Eosinophils 3 % (0-10); Hypochromasia 1+; Lymphocytes 25 % (20-55); Microcytosis 1+; Ovalocytes Slight; Segmented Neutrophils 50 % (50-85); Spherocytes Slight; Total Cells Counted 100
[2017-09-02 08:21] LABS: Platelet Estimate Decreased
[2017-09-02] MEDS: INSULIN LISPRO 100 UNIT/ML SUBCUT SCH ×4 (10:05→21:38)
[2017-09-02] MEDS: glipiZIDE 10 MG TABLET PO SCH (10:07)
[2017-09-02] MEDS: PANTOPRAZOLE 40 MG TABLET PO SCH (10:07)
[2017-09-02] MEDS: LABETALOL 100 MG TABLET PO SCH ×2 (10:07→21:37)
[2017-09-02] MEDS: ASPIRIN EC 81 MG TABLET PO SCH (10:08)
[2017-09-02] MEDS: FUROSEMIDE 40 MG/4 ML VIAL IV SCH ×2 (10:08→21:39)
[2017-09-02] MEDS: cefTRIAXone 1,000 MG in SYRINGE 1 EACH IV SCH (13:35)
[2017-09-02] MEDS ORDERED: TUBERCULIN SKIN TEST 0.1 ML SYRINGE INTRADERM ONE (14:00)
[2017-09-02] MEDS: glipiZIDE 5 MG TABLET PO SCH (17:36)
[2017-09-02] MEDS: ENOXAPARIN 40 MG/0.4 ML SYRINGE SUBCUT SCH (17:36)
[2017-09-02] MEDS: LOVASTATIN 20 MG TABLET PO SCH (17:36)
[2017-09-02] MEDS: FERROUS SULFATE 325 MG TABLET PO SCH (21:37)
[2017-09-02] MEDS: ACETAMINOPHEN 325 MG TABLET PO PRN (21:38)
[2017-09-03] MEDS: LEVOTHYROXINE 50 MCG TABLET PO SCH (06:15)
[2017-09-03 06:31] LABS: Basophils % 0.3 % (0.0-0.8); Eosinophils # 0.2 10*3/uL (0.0-0.87); Eosinophils % 4.2 % (0.00-10.9); Hematocrit 30.5 VOL% (35.7-47.0); Hemoglobin 9.3 GM/DL (12.0-16.0); Immature Granulocytes % 0.3 %; Immature Granulocytes Absolute 0.01 #; Lymphocytes # 1.1 10*3/uL (1.4-4.0); Lymphocytes % 30.6 % (21.3-54.2); Mean Corpuscular HGB Conc 30.5 GM/DL (32-36); Mean Corpuscular Hemoglobin 23 PG (27-34); Mean Corpuscular Volume 75.5 FL (87-102); Mean Platelet Volume 11.8 FL (9.6-12.0); Monocytes # 0.8 10*3/uL (0.11-0.8); Monocytes % 22.4 % (1.7-12.7); Neutrophils # 1.5 10*3/uL (1.4-7.4); Neutrophils % 42.2 % (38.7-73.9); Platelet Count 96 T/CUMM (130-400); Red Blood Count 4.04 MC/CUMM (3.8-5.5); Red Cell Distribution Width 18.8 % (9.3-17.3); White Blood Count 3.5 T/CUMM (4-12)
[2017-09-03 06:59] LABS: Calcium 8.1 MG/DL (8.5-10.1); Osmolality,Calculated 284.3 MOS/KG (273-304)
[2017-09-03 07:01] LABS: Band Neutrophils 3 % (0-10); Eosinophils 3 % (0-10); Lymphocytes 35 % (20-55); Platelet Estimate Decreased; Segmented Neutrophils 54 % (50-85); Total Cells Counted 100
[2017-09-03 07:02] LABS: Microcytosis 1+
[2017-09-03] MEDS: INSULIN LISPRO 100 UNIT/ML SUBCUT SCH ×4 (09:56→20:44)
[2017-09-03] MEDS: LABETALOL 100 MG TABLET PO SCH ×2 (09:56→20:44)
[2017-09-03] MEDS: PANTOPRAZOLE 40 MG TABLET PO SCH (09:56)
[2017-09-03] MEDS: glipiZIDE 5 MG TABLET PO SCH ×2 (09:56→17:59)
[2017-09-03] MEDS: ASPIRIN EC 81 MG TABLET PO SCH (09:56)
[2017-09-03] MEDS: FUROSEMIDE 40 MG/4 ML VIAL IV SCH ×2 (09:56→15:13)
[2017-09-03] MEDS: FERROUS SULFATE 325 MG TABLET PO SCH ×2 (09:56→20:44)
[2017-09-03] MEDS: cefTRIAXone 1,000 MG in SYRINGE 1 EACH IV SCH (12:04)
[2017-09-03] MEDS: ENOXAPARIN 40 MG/0.4 ML SYRINGE SUBCUT SCH (15:13)
[2017-09-03] MEDS: LOVASTATIN 20 MG TABLET PO SCH (17:59)
[2017-09-04] MEDS: ACETAMINOPHEN 325 MG TABLET PO PRN ×2 (00:10→10:00)
[2017-09-04 05:30] LABS: Osmolality,Calculated 284.3 MOS/KG (273-304); Potassium 4.1 MMOL/L (3.5-5.1)
[2017-09-04 05:41] LABS: Calcium 7.8 MG/DL (8.5-10.1); Osmolality,Calculated 285.3 MOS/KG (273-304); Potassium 4.1 MMOL/L (3.5-5.1)
[2017-09-04 06:12] LABS: Basophils % 0.3 % (0.0-0.8); Eosinophils # 0.2 10*3/uL (0.0-0.87); Eosinophils % 5.5 % (0.00-10.9); Hematocrit 31.7 VOL% (35.7-47.0); Hemoglobin 9.5 GM/DL (12.0-16.0); Immature Granulocytes % 0.3 %; Immature Granulocytes Absolute 0.01 #; Lymphocytes # 0.7 10*3/uL (1.4-4.0); Lymphocytes % 22.5 % (21.3-54.2); Mean Corpuscular Hemoglobin 23 PG (27-34); Monocytes # 0.9 10*3/uL (0.11-0.8); Monocytes % 28.3 % (1.7-12.7); Neutrophils # 1.4 10*3/uL (1.4-7.4); Neutrophils % 43.1 % (38.7-73.9); Platelet Count 101 T/CUMM (130-400); Red Blood Count 4.17 MC/CUMM (3.8-5.5); Red Cell Distribution Width 18.8 % (9.3-17.3); White Blood Count 3.3 T/CUMM (4-12)
[2017-09-04] MEDS: LEVOTHYROXINE 50 MCG TABLET PO SCH (06:18)
[2017-09-04 07:44] LABS: Eosinophils 3 % (0-10); Hypochromasia 1+; Lymphocytes 39 % (20-55); Platelet Estimate Decreased; Segmented Neutrophils 48 % (50-85); Total Cells Counted 100
[2017-09-04] MEDS: INSULIN LISPRO 100 UNIT/ML SUBCUT SCH ×4 (08:27→20:37)
[2017-09-04] MEDS: glipiZIDE 5 MG TABLET PO SCH ×2 (10:00→18:13)
[2017-09-04] MEDS: FERROUS SULFATE 325 MG TABLET PO SCH ×2 (10:00→20:35)
[2017-09-04] MEDS: LABETALOL 100 MG TABLET PO SCH ×2 (10:00→20:35)
[2017-09-04] MEDS: ASPIRIN EC 81 MG TABLET PO SCH (10:00)
[2017-09-04] MEDS: PANTOPRAZOLE 40 MG TABLET PO SCH (10:06)
[2017-09-04] MEDS: cefTRIAXone 1,000 MG in SYRINGE 1 EACH IV SCH (15:50)
[2017-09-04] MEDS: FUROSEMIDE 40 MG TABLET PO SCH (15:50)
[2017-09-04] MEDS: ENOXAPARIN 40 MG/0.4 ML SYRINGE SUBCUT SCH (15:55)
[2017-09-04] MEDS ORDERED: FUROSEMIDE 40 MG/5 ML UDCUP PO SCH (16:00)
[2017-09-04] MEDS: LOVASTATIN 20 MG TABLET PO SCH (18:13)
[2017-09-04] MEDS: FUROSEMIDE 40 MG/4 ML VIAL IV SCH (18:13)
[2017-09-05] MEDS: LEVOTHYROXINE 50 MCG TABLET PO SCH (06:15)
[2017-09-05] MEDS: INSULIN LISPRO 100 UNIT/ML SUBCUT SCH ×4 (07:37→21:17)
[2017-09-05] MEDS: LABETALOL 100 MG TABLET PO SCH ×2 (08:58→21:17)
[2017-09-05] MEDS: PANTOPRAZOLE 40 MG TABLET PO SCH (08:58)
[2017-09-05] MEDS: glipiZIDE 5 MG TABLET PO SCH ×2 (08:59→16:36)
[2017-09-05] MEDS: ASPIRIN EC 81 MG TABLET PO SCH (08:59)
[2017-09-05] MEDS: FUROSEMIDE 40 MG TABLET PO SCH ×2 (08:59→16:37)
[2017-09-05] MEDS: FERROUS SULFATE 325 MG TABLET PO SCH ×2 (08:59→21:17)
[2017-09-05] MEDS: NYSTATIN POWDER 15 GM BOTTLE TOP SCH ×2 (10:40→21:17)
[2017-09-05] MEDS: cefTRIAXone 1,000 MG in SYRINGE 1 EACH IV SCH (12:05)
[2017-09-05] MEDS: ENOXAPARIN 40 MG/0.4 ML SYRINGE SUBCUT SCH (16:36)
[2017-09-05] MEDS: LOVASTATIN 20 MG TABLET PO SCH (16:37)
[2017-09-06] MEDS: LEVOTHYROXINE 50 MCG TABLET PO SCH (06:18)
[2017-09-06 06:39] LABS: Basophils % 0.3 % (0.0-0.8); Eosinophils # 0.2 10*3/uL (0.0-0.87); Eosinophils % 6.4 % (0.00-10.9); Hematocrit 29.2 VOL% (35.7-47.0); Hemoglobin 8.9 GM/DL (12.0-16.0); Immature Granulocytes % 0.3 %; Immature Granulocytes Absolute 0.01 #; Lymphocytes # 0.9 10*3/uL (1.4-4.0); Lymphocytes % 29.5 % (21.3-54.2); Mean Corpuscular HGB Conc 30.5 GM/DL (32-36); Mean Corpuscular Hemoglobin 23 PG (27-34); Mean Corpuscular Volume 76.6 FL (87-102); Mean Platelet Volume 12.4 FL (9.6-12.0); Monocytes # 0.6 10*3/uL (0.11-0.8); Monocytes % 19.7 % (1.7-12.7); Neutrophils # 1.3 10*3/uL (1.4-7.4); Neutrophils % 43.8 % (38.7-73.9); Platelet Count 102 T/CUMM (130-400); Red Blood Count 3.81 MC/CUMM (3.8-5.5); Red Cell Distribution Width 18.5 % (9.3-17.3)
[2017-09-06 06:53] LABS: Calcium 8.5 MG/DL (8.5-10.1); Osmolality,Calculated 276.7 MOS/KG (273-304); Potassium 4.2 MMOL/L (3.5-5.1)
[2017-09-06 06:54] LABS: Eosinophils 4 % (0-10); Hypochromasia 2+; Lymphocytes 31 % (20-55); Nucleated Red Blood Cells 1 (0-5); Segmented Neutrophils 45 % (50-85); Total Cells Counted 100
[2017-09-06 06:55] LABS: Microcytosis 1+; Ovalocytes Slight; Platelet Estimate Decreased
[2017-09-06] MEDS: INSULIN LISPRO 100 UNIT/ML SUBCUT SCH ×4 (09:23→20:41)
[2017-09-06] MEDS: glipiZIDE 5 MG TABLET PO SCH ×2 (10:30→17:21)
[2017-09-06] MEDS: ASPIRIN EC 81 MG TABLET PO SCH (10:38)
[2017-09-06] MEDS: LABETALOL 100 MG TABLET PO SCH (10:38)
[2017-09-06] MEDS: FUROSEMIDE 40 MG TABLET PO SCH ×2 (10:39→16:51)
[2017-09-06] MEDS: PANTOPRAZOLE 40 MG TABLET PO SCH (10:39)
[2017-09-06] MEDS: CEFUROXIME 500 MG TABLET PO SCH ×2 (10:39→20:41)
[2017-09-06] MEDS: FERROUS SULFATE 325 MG TABLET PO SCH ×2 (10:40→20:41)
[2017-09-06] MEDS: NYSTATIN POWDER 15 GM BOTTLE TOP SCH (10:41)
[2017-09-06] MEDS: ACETAMINOPHEN 325 MG TABLET PO PRN (14:25)
[2017-09-06] MEDS ORDERED: INFLUENZA VIRUS VACCINE 0.5 ML SYRINGE IM ONE (15:00)
[2017-09-06] MEDS: NAPROXEN 500 MG TABLET PO SCH (16:47)
[2017-09-06] MEDS: ENOXAPARIN 40 MG/0.4 ML SYRINGE SUBCUT SCH (16:47)
[2017-09-06] MEDS: LOVASTATIN 20 MG TABLET PO SCH (18:45)
[2017-09-07] MEDS: NYSTATIN POWDER 15 GM BOTTLE TOP SCH ×3 (05:32→21:25)
[2017-09-07] MEDS: LABETALOL 100 MG TABLET PO SCH ×3 (05:32→21:24)
[2017-09-07] MEDS: LEVOTHYROXINE 50 MCG TABLET PO SCH (06:12)
[2017-09-07] MEDS: glipiZIDE 5 MG TABLET PO SCH ×2 (08:02→17:22)
[2017-09-07] MEDS: INSULIN LISPRO 100 UNIT/ML SUBCUT SCH ×4 (08:02→21:25)
[2017-09-07] MEDS: ACETAMINOPHEN 325 MG TABLET PO PRN ×2 (08:08→17:41)
[2017-09-07] MEDS: ASPIRIN EC 81 MG TABLET PO SCH (08:09)
[2017-09-07] MEDS: PANTOPRAZOLE 40 MG TABLET PO SCH (08:09)
[2017-09-07] MEDS: FERROUS SULFATE 325 MG TABLET PO SCH ×2 (08:10→21:24)
[2017-09-07] MEDS: NAPROXEN 500 MG TABLET PO SCH ×2 (08:10→21:24)
[2017-09-07] MEDS: CEFUROXIME 500 MG TABLET PO SCH ×2 (08:11→21:24)
[2017-09-07] MEDS: FUROSEMIDE 40 MG TABLET PO SCH ×2 (08:11→16:10)
[2017-09-07] MEDS: ENOXAPARIN 40 MG/0.4 ML SYRINGE SUBCUT SCH (16:11)
[2017-09-07] MEDS: LOVASTATIN 20 MG TABLET PO SCH (17:42)
[2017-09-08] MEDS: LEVOTHYROXINE 50 MCG TABLET PO SCH (06:24)
[2017-09-08] MEDS: INSULIN LISPRO 100 UNIT/ML SUBCUT SCH ×4 (07:49→20:55)
[2017-09-08] MEDS: glipiZIDE 5 MG TABLET PO SCH ×2 (09:42→16:42)
[2017-09-08] MEDS: ASPIRIN EC 81 MG TABLET PO SCH (09:44)
[2017-09-08] MEDS: CEFUROXIME 500 MG TABLET PO SCH ×2 (09:45→20:55)
[2017-09-08] MEDS: FERROUS SULFATE 325 MG TABLET PO SCH ×2 (09:57→20:55)
[2017-09-08] MEDS: PANTOPRAZOLE 40 MG TABLET PO SCH (09:58)
[2017-09-08] MEDS: NAPROXEN 500 MG TABLET PO SCH ×2 (09:58→20:55)
[2017-09-08] MEDS: LABETALOL 100 MG TABLET PO SCH ×3 (09:59→20:56)
[2017-09-08 10:27] LABS: Calcium 8.3 MG/DL (8.5-10.1); Osmolality,Calculated 283.4 MOS/KG (273-304); Potassium 4.2 MMOL/L (3.5-5.1)
[2017-09-08 10:30] LABS: Basophils % 0.3 % (0.0-0.8); Eosinophils # 0.2 10*3/uL (0.0-0.87); Eosinophils % 6.2 % (0.00-10.9); Hematocrit 32.3 VOL% (35.7-47.0); Hemoglobin 9.5 GM/DL (12.0-16.0); Immature Granulocytes % 0.3 %; Immature Granulocytes Absolute 0.01 #; Lymphocytes # 0.8 10*3/uL (1.4-4.0); Lymphocytes % 26.5 % (21.3-54.2); Mean Corpuscular HGB Conc 29.4 GM/DL (32-36); Mean Corpuscular Hemoglobin 23 PG (27-34); Mean Platelet Volume 11.5 FL (9.6-12.0); Monocytes # 0.6 10*3/uL (0.11-0.8); Monocytes % 18.9 % (1.7-12.7); Neutrophils # 1.4 10*3/uL (1.4-7.4); Neutrophils % 47.8 % (38.7-73.9); Platelet Count 133 T/CUMM (130-400); Red Blood Count 4.14 MC/CUMM (3.8-5.5); Red Cell Distribution Width 18.5 % (9.3-17.3); White Blood Count 2.9 T/CUMM (4-12)
[2017-09-08 10:39] LABS: Eosinophils 11 % (0-10); Giant Platelets Few; Hypochromasia 1+; Lymphocytes 27 % (20-55); Microcytosis 1+; Platelet Estimate Normal; Segmented Neutrophils 48 % (50-85); Total Cells Counted 100
[2017-09-08 10:40] LABS: Atypical Lymphocytes Few
[2017-09-08] MEDS: FUROSEMIDE 40 MG TABLET PO SCH ×2 (11:41→15:28)
[2017-09-08] MEDS: NYSTATIN POWDER 15 GM BOTTLE TOP SCH ×2 (11:57→21:22)
[2017-09-08] MEDS: ENOXAPARIN 40 MG/0.4 ML SYRINGE SUBCUT SCH (15:28)
[2017-09-08] MEDS: LOVASTATIN 20 MG TABLET PO SCH (16:57)
[2017-09-08] MEDS: ACETAMINOPHEN 325 MG TABLET PO PRN (18:37)
[2017-09-09] MEDS: LEVOTHYROXINE 50 MCG TABLET PO SCH (06:20)
[2017-09-09] MEDS: INSULIN LISPRO 100 UNIT/ML SUBCUT SCH ×2 (08:20→12:04)
[2017-09-09] MEDS: CEFUROXIME 500 MG TABLET PO SCH (08:54)
[2017-09-09] MEDS: FUROSEMIDE 40 MG TABLET PO SCH (08:54)
[2017-09-09] MEDS: FERROUS SULFATE 325 MG TABLET PO SCH (08:54)
[2017-09-09] MEDS: ASPIRIN EC 81 MG TABLET PO SCH (08:54)
[2017-09-09] MEDS: LABETALOL 100 MG TABLET PO SCH (08:55)
[2017-09-09] MEDS: PANTOPRAZOLE 40 MG TABLET PO SCH (08:55)
[2017-09-09] MEDS: glipiZIDE 5 MG TABLET PO SCH (08:55)
[2017-09-09] MEDS: NYSTATIN POWDER 15 GM BOTTLE TOP SCH (08:56)
[2017-09-09] MEDS: NAPROXEN 500 MG TABLET PO SCH (08:56)
[2017-09-09] MEDS: ENOXAPARIN 40 MG/0.4 ML SYRINGE SUBCUT SCH (15:11)
[2017-09-09 16:48] VITALS: BP 155/97
== END 2017-09-09 16:38 | DRG 189 ==
LOC: EDUNIT# → EDBD → N.ED 09:06 → SUATTDRO 12:29 → N.EDINP 12:29 → N.ICU 15:48 → N.3E 09-02 13:53
PROVIDERS: ADMIT Internal Medicine; ATTEND Internal Medicine Geriatric Medicine

== ENCOUNTER 2018-07-24 23:20 | Inpatient (IN) ==
[2018-07-24] MEDS ORDERED: methylPREDNISolone SOD SUC 125 MG/2 ML VIAL IV STA (23:34)
[2018-07-24] MEDS ORDERED: FUROSEMIDE 40 MG/4 ML VIAL IV STA (23:34)
[2018-07-24] MEDS ORDERED: ONDANSETRON 4 MG/2 ML VIAL IV STA (23:34)
[2018-07-24] MEDS ORDERED: LEVOFLOXACIN INJ 750 MG in PREMIX 1 EACH IV STA (23:34)
[2018-07-24] MEDS ORDERED: ALBUTEROL/IPRATROPIUM 3 ML NEB RESP TX STA (23:34)
[2018-07-25 00:53] LABS: Basophils % 0.3 % (0.0-0.8); Eosinophils # 0.1 10*3/uL (0.0-0.87); Eosinophils % 1.6 % (0.00-10.9); Hematocrit 31.6 VOL% (35.7-47.0); Hemoglobin 8.9 GM/DL (12.0-16.0); Immature Granulocytes % 0.5 %; Immature Granulocytes Absolute 0.02 #; Lymphocytes # 0.9 10*3/uL (1.4-4.0); Lymphocytes % 24.5 % (21.3-54.2); Mean Corpuscular HGB Conc 28.2 GM/DL (32-36); Mean Corpuscular Hemoglobin 23 PG (27-34); Mean Corpuscular Volume 79.8 FL (87-102); Mean Platelet Volume 11.6 FL (9.6-12.0); Monocytes # 0.7 10*3/uL (0.11-0.8); Monocytes % 18.3 % (1.7-12.7); Neutrophils % 54.8 % (38.7-73.9); Platelet Count 106 T/CUMM (130-400); Red Blood Count 3.96 MC/CUMM (3.8-5.5); Red Cell Distribution Width 18.1 % (9.3-17.3); White Blood Count 3.7 T/CUMM (4-12)
[2018-07-25 01:04] LABS: Partial Thromboplastin Time 24.3 SECS (0-40)
[2018-07-25 01:16] LABS: Alanine Aminotransferase < 9 U/L (13-56); Albumin 2.9 G/DL (3.4-5.0); Alkaline Phosphatase 68 U/L (45-117); Aspartate Amino Transferase 6 U/L (0-37); Blood Urea Nitrogen 29 MG/DL (7-18); Calcium 8.3 MG/DL (8.5-10.1); Glucose 186 MG/DL (74-106); Osmolality,Calculated 289.4 MOS/KG (273-304); Potassium 5.7 MMOL/L (3.5-5.1); Sodium 140 MMOL/L (136-145); Total Protein 6.4 G/DL (6.4-8.3); Troponin I 0.039 NG/ML (0.00-0.045)
[2018-07-25 01:23] LABS: Apearance,Urine CLOUDY (Clear); Bacteria,Urine Few /HPF (Few); Bilirubin,Urine Negative (Negative); Blood, Urine Negative (Negative); Glucose,Urine (UA) Negative (Negative); Hyaline Casts,Urine 2 /LPF (0-3); Ketones,Urine Negative (Negative); Mucus,Urine Occasional /LPF (Occasional); Nitrite,Urine Positive (Negative); Protein,Urine 30 MG/DL; RBC,Urine 9 /HPF (0-4); Squamous Epithelial Cell,Urine Occasional /HPF (0-10); Triple Phosphate Crystal,Urine Occasional /HPF (Few); Urine Color Amber (Yellow); Urine Specific Gravity 1.018 (1.001-1.035); Urine Urobilinogen < 2.0 EU/DL (0.2-1.0); WBC,Urine 212 /HPF (0-6)
[2018-07-25 01:57] LABS: Band Neutrophils 2 % (0-10); Eosinophils 2 % (0-10); Lymphocytes 26 % (20-55); Reactive Lymphocytes 2+; Segmented Neutrophils 60 % (50-85)
[2018-07-25 01:58] LABS: Hypochromasia 1+; Microcytosis 2+; Polychromasia Few
[2018-07-25 02:00] LABS: Ovalocytes Few; Platelet Estimate Adequate
[2018-07-25 02:01] LABS: Total Cells Counted 100
[2018-07-25] MEDS ORDERED: ACETAMINOPHEN 325 MG TABLET PO PRN (03:30)
[2018-07-25] MEDS ORDERED: NICOTINE 21 MG/24 HR PATCH TRANSDERM PRN (03:30)
[2018-07-25] MEDS ORDERED: MORPHINE 4 MG/1 ML VIAL IV PRN (03:30)
[2018-07-25] MEDS ORDERED: LACTULOSE 20 GM/30 ML UDCUP PO PRN (03:30)
[2018-07-25] MEDS ORDERED: PROMETHAZINE 25 MG/1 ML VIAL IM PRN (03:30)
[2018-07-25] MEDS ORDERED: ONDANSETRON 4 MG/2 ML VIAL IV PRN (03:30)
[2018-07-25] MEDS ORDERED: diphenhydrAMINE CAP 25 MG CAPSULE PO PRN (03:30)
[2018-07-25] MEDS ORDERED: SODIUM CHLORIDE 0.9% 1,000 ML IV SCH (03:30)
[2018-07-25] MEDS ORDERED: GLUCAGON 1 MG VIAL IM PRN (03:33)
[2018-07-25] MEDS ORDERED: DEXTROSE 50% 25 GM/50 ML SYRINGE IV PRN (03:33)
[2018-07-25] MEDS: ALBUTEROL/IPRATROPIUM 3 ML NEB RESP TX SCH ×4 (07:05→19:42)
[2018-07-25] MEDS ORDERED: INFLUENZA VIRUS VACCINE 0.5 ML SYRINGE IM ONE (09:00)
[2018-07-25] MEDS: INSULIN REGULAR 100 UNIT/ML SUBCUT SCH ×4 (10:00→21:23)
[2018-07-25] MEDS: ASPIRIN EC 81 MG TABLET PO SCH (10:00)
[2018-07-25] MEDS: FLUTICASONE 50 MCG NASAL SPRAY 16 GM BOTTLE BOTH NARES SCH (10:00)
[2018-07-25] MEDS: PANTOPRAZOLE 40 MG TABLET PO SCH (10:01)
[2018-07-25] MEDS: methylPREDNISolone SOD SUC 40 MG/1 ML VIAL IV SCH ×2 (10:01→21:22)
[2018-07-25 11:19] LABS: Calcium 8.1 MG/DL (8.5-10.1); Osmolality,Calculated 296.5 MOS/KG (273-304)
[2018-07-25] MEDS ORDERED: SODIUM POLYSTYRENE SULFATE 15 GM/60 ML BOTTLE PO ONE (11:41)
[2018-07-25] MEDS: PIPERACILLIN/TAZOBACTAM 3,375 MG in SODIUM CHLORIDE 0.9% 100 ML IV SCH ×2 (12:27→21:21)
[2018-07-25] MEDS ORDERED: VANCOMYCIN INJ 2,500 MG in SODIUM CHLORIDE 0.9% 500 ML IV ONE (14:00)
[2018-07-25] MEDS ORDERED: MAGNESIUM SULF RIDER 4 GM in PREMIX 1 EACH IV ONE (14:30)
[2018-07-25] MEDS ORDERED: CALCIUM CARBONATE CHEW 500 MG TABLET PO PRN (15:34)
[2018-07-25] MEDS: LOVASTATIN 20 MG TABLET PO SCH (16:48)
[2018-07-25] MEDS: LABETALOL 100 MG TABLET PO SCH (21:23)
[2018-07-25] MEDS: PREGABALIN 75 MG CAPSULE PO SCH (21:23)
[2018-07-25] MEDS: LEVOFLOXACIN INJ 750 MG in PREMIX 1 EACH IV SCH (22:46)
[2018-07-26] MEDS: PIPERACILLIN/TAZOBACTAM 3,375 MG in SODIUM CHLORIDE 0.9% 100 ML IV SCH ×4 (00:05→21:37)
[2018-07-26] MEDS: ALBUTEROL/IPRATROPIUM 3 ML NEB RESP TX SCH ×5 (00:21→14:38)
[2018-07-26] MEDS: LEVOTHYROXINE 50 MCG TABLET PO SCH (05:44)
[2018-07-26] MEDS: VANCOMYCIN INJ 2,000 MG in SODIUM CHLORIDE 0.9% 500 ML IV SCH ×2 (05:44→17:21)
[2018-07-26 06:53] LABS: Calcium 8.1 MG/DL (8.5-10.1); Osmolality,Calculated 291.5 MOS/KG (273-304); Potassium 5.2 MMOL/L (3.5-5.1)
[2018-07-26 07:14] LABS: Basophils % 0.2 % (0.0-0.8); Hematocrit 33.3 VOL% (35.7-47.0); Immature Granulocytes % 1.2 %; Immature Granulocytes Absolute 0.07 #; Lymphocytes # 0.6 10*3/uL (1.4-4.0); Lymphocytes % 11.2 % (21.3-54.2); Mean Corpuscular HGB Conc 28.5 GM/DL (32-36); Mean Corpuscular Hemoglobin 23 PG (27-34); Mean Corpuscular Volume 79.1 FL (87-102); Mean Platelet Volume 11.9 FL (9.6-12.0); Monocytes # 0.7 10*3/uL (0.11-0.8); Monocytes % 12.1 % (1.7-12.7); Neutrophils # 4.3 10*3/uL (1.4-7.4); Neutrophils % 75.3 % (38.7-73.9); Platelet Count 153 T/CUMM (130-400); Red Blood Count 4.21 MC/CUMM (3.8-5.5); Red Cell Distribution Width 18.3 % (9.3-17.3); White Blood Count 5.7 T/CUMM (4-12)
[2018-07-26 07:15] LABS: Hemoglobin 9.5 GM/DL (12.0-16.0)
[2018-07-26 07:18] LABS: Platelet Estimate Adequate; Poikilocytosis Slight
[2018-07-26 07:19] LABS: Anisocytosis 1+; Hypochromasia 1+
[2018-07-26] MEDS ORDERED: SODIUM POLYSTYRENE SULFATE 15 GM/60 ML BOTTLE PO STA (08:37)
[2018-07-26] MEDS: INSULIN REGULAR 100 UNIT/ML SUBCUT SCH ×4 (08:49→21:41)
[2018-07-26] MEDS: LACTOBACILLUS ACIDOPHILUS/BULGARICUS CAPLET PO SCH (08:50)
[2018-07-26] MEDS: CYANOCOBALAMIN 500 MCG TABLET PO SCH (08:50)
[2018-07-26] MEDS: PANTOPRAZOLE 40 MG TABLET PO SCH (08:50)
[2018-07-26] MEDS: ASPIRIN EC 81 MG TABLET PO SCH (08:50)
[2018-07-26] MEDS: amLODIPine 5 MG TABLET PO SCH (08:50)
[2018-07-26] MEDS: CALCIUM (CARBONATE)/VITAMIN D 600 MG-400 UNIT TABLET PO SCH (08:50)
[2018-07-26] MEDS: LABETALOL 100 MG TABLET PO SCH ×2 (08:50→21:41)
[2018-07-26] MEDS: PREGABALIN 75 MG CAPSULE PO SCH ×2 (08:50→21:41)
[2018-07-26] MEDS: methylPREDNISolone SOD SUC 40 MG/1 ML VIAL IV SCH (08:51)
[2018-07-26] MEDS: FLUTICASONE 50 MCG NASAL SPRAY 16 GM BOTTLE BOTH NARES SCH (08:59)
[2018-07-26] MEDS ORDERED: FUROSEMIDE 40 MG/4 ML VIAL IV ONE ×2 (10:30→14:00)
[2018-07-26] MEDS ORDERED: METOPROLOL TARTRATE 5 MG/5 ML VIAL IV ONE (15:00)
[2018-07-26] MEDS ORDERED: methylPREDNISolone SOD SUC 125 MG/2 ML VIAL IV ONE (16:56)
[2018-07-26 17:07] LABS: ABG Base Excess 7.5 MMOL/L (-2.5-2.5); ABG HCO3 30.9 MMOL/L (20-26); ABG Oxygen Saturation 78.4 % (95-100); ABG PH 7.362 (7.35-7.45); ABG PO2 46.5 MM HG (80-95); ABG TCO2 31.9 MMOL/L (23-27); Allen Test Positive
[2018-07-26] MEDS: LOVASTATIN 20 MG TABLET PO SCH (17:22)
[2018-07-26] MEDS ORDERED: ALBUTEROL 1.25 MG/3 ML NEB RESP TX SCH (19:00)
[2018-07-26] MEDS ORDERED: LEVALBUTEROL 1.25 MG/3 ML NEB RESP TX SCH (19:00)
[2018-07-26 20:42] LABS: Calcium 7.9 MG/DL (8.5-10.1); Osmolality,Calculated 298.7 MOS/KG (273-304); Potassium 5.1 MMOL/L (3.5-5.1)
[2018-07-27] MEDS: LEVALBUTEROL 1.25 MG/3 ML NEB RESP TX SCH ×3 (00:05→07:12)
[2018-07-27] MEDS: methylPREDNISolone SOD SUC 125 MG/2 ML VIAL IV SCH ×4 (01:00→19:04)
[2018-07-27] MEDS: LEVOFLOXACIN INJ 750 MG in PREMIX 1 EACH IV SCH ×2 (02:45→21:31)
[2018-07-27] MEDS: VANCOMYCIN INJ 2,000 MG in SODIUM CHLORIDE 0.9% 500 ML IV SCH (05:49)
[2018-07-27] MEDS: LEVOTHYROXINE 50 MCG TABLET PO SCH (05:50)
[2018-07-27 07:04] LABS: Basophils % 0.2 % (0.0-0.8); Eosinophils % 0.2 % (0.00-10.9); Hematocrit 33.3 VOL% (35.7-47.0); Immature Granulocytes % 1.1 %; Immature Granulocytes Absolute 0.05 #; Lymphocytes # 0.7 10*3/uL (1.4-4.0); Lymphocytes % 15.4 % (21.3-54.2); Mean Corpuscular HGB Conc 28.2 GM/DL (32-36); Mean Corpuscular Hemoglobin 22 PG (27-34); Mean Corpuscular Volume 78.7 FL (87-102); Mean Platelet Volume 11.8 FL (9.6-12.0); Monocytes # 0.8 10*3/uL (0.11-0.8); Monocytes % 18.3 % (1.7-12.7); NRBC # 0.03 10*3/uL; Neutrophils # 2.9 10*3/uL (1.4-7.4); Neutrophils % 64.8 % (38.7-73.9); Platelet Count 167 T/CUMM (130-400); Red Blood Count 4.23 MC/CUMM (3.8-5.5); Red Cell Distribution Width 18.9 % (9.3-17.3); White Blood Count 4.4 T/CUMM (4-12)
[2018-07-27 07:06] LABS: Hemoglobin 9.4 GM/DL (12.0-16.0)
[2018-07-27 07:11] LABS: Osmolality,Calculated 298.7 MOS/KG (273-304); Potassium 5.1 MMOL/L (3.5-5.1)
[2018-07-27 07:12] LABS: Eosinophils 1 % (0-10); Hypochromasia 1+; Lymphocytes 21 % (20-55); Metamyelocytes 1 %; Microcytosis 1+; Platelet Estimate Decreased; Polychromasia Few; Segmented Neutrophils 75 % (50-85); Total Cells Counted 100
[2018-07-27] MEDS: LABETALOL 100 MG TABLET PO SCH (10:43)
[2018-07-27] MEDS: CYANOCOBALAMIN 500 MCG TABLET PO SCH (10:43)
[2018-07-27] MEDS: PIPERACILLIN/TAZOBACTAM 3,375 MG in SODIUM CHLORIDE 0.9% 100 ML IV SCH ×4 (10:43→23:42)
[2018-07-27] MEDS: amLODIPine 5 MG TABLET PO SCH (10:43)
[2018-07-27] MEDS: PANTOPRAZOLE 40 MG TABLET PO SCH (10:44)
[2018-07-27] MEDS: FLUTICASONE 50 MCG NASAL SPRAY 16 GM BOTTLE BOTH NARES SCH (10:44)
[2018-07-27] MEDS: ASPIRIN EC 81 MG TABLET PO SCH (10:44)
[2018-07-27] MEDS: INSULIN REGULAR 100 UNIT/ML SUBCUT SCH ×4 (10:44→21:32)
[2018-07-27] MEDS: LACTOBACILLUS ACIDOPHILUS/BULGARICUS CAPLET PO SCH (10:44)
[2018-07-27] MEDS: PREGABALIN 75 MG CAPSULE PO SCH ×2 (10:44→21:33)
[2018-07-27] MEDS: CALCIUM (CARBONATE)/VITAMIN D 600 MG-400 UNIT TABLET PO SCH (10:44)
[2018-07-27] MEDS: INSULIN GLARGINE 100 UNIT/ML SUBCUT SCH (11:02)
[2018-07-27] MEDS: ALBUTEROL 2.5 MG/3 ML NEB RESP TX SCH ×3 (11:05→19:53)
[2018-07-27] MEDS: METOPROLOL TARTRATE 25 MG TABLET PO SCH ×2 (16:54→21:33)
[2018-07-27] MEDS: FUROSEMIDE 100 MG/10 ML VIAL IV SCH ×3 (18:09→21:34)
[2018-07-27] MEDS: LOVASTATIN 20 MG TABLET PO SCH (19:19)
[2018-07-28] MEDS: ALBUTEROL 2.5 MG/3 ML NEB RESP TX SCH ×7 (00:11→23:03)
[2018-07-28] MEDS: methylPREDNISolone SOD SUC 125 MG/2 ML VIAL IV SCH ×3 (01:18→16:36)
[2018-07-28] MEDS: LEVOTHYROXINE 50 MCG TABLET PO SCH (05:41)
[2018-07-28 07:55] LABS: Albumin 2.6 G/DL (3.4-5.0); Bilirubin,Total 0.6 MG/DL (0.2-1.0); Calcium 7.8 MG/DL (8.5-10.1); Osmolality,Calculated 295.8 MOS/KG (273-304); Potassium 4.2 MMOL/L (3.5-5.1); Total Protein 6.1 G/DL (6.4-8.3)
[2018-07-28 08:01] LABS: Basophils % 0.2 % (0.0-0.8); Eosinophils # 0.1 10*3/uL (0.0-0.87); Eosinophils % 1.6 % (0.00-10.9); Hematocrit 32.5 VOL% (35.7-47.0); Hemoglobin 9.2 GM/DL (12.0-16.0); Immature Granulocytes % 1.6 %; Immature Granulocytes Absolute 0.08 #; Lymphocytes # 0.8 10*3/uL (1.4-4.0); Mean Corpuscular HGB Conc 28.3 GM/DL (32-36); Mean Corpuscular Hemoglobin 22 PG (27-34); Mean Corpuscular Volume 79.1 FL (87-102); Monocytes # 0.7 10*3/uL (0.11-0.8); NRBC # 0.05 10*3/uL; Neutrophils # 3.5 10*3/uL (1.4-7.4); Neutrophils % 68.6 % (38.7-73.9); Platelet Count 122 T/CUMM (130-400); Red Blood Count 4.11 MC/CUMM (3.8-5.5); White Blood Count 5.2 T/CUMM (4-12)
[2018-07-28 08:08] LABS: Hypochromasia 1+; Microcytosis Slight; Ovalocytes Slight; Platelet Estimate Normal
[2018-07-28] MEDS ORDERED: MAGNESIUM SULF RIDER 4 GM in PREMIX 1 EACH IV ONE (10:00)
[2018-07-28] MEDS: PIPERACILLIN/TAZOBACTAM 3,375 MG in SODIUM CHLORIDE 0.9% 100 ML IV SCH ×2 (10:41→18:39)
[2018-07-28] MEDS: FUROSEMIDE 100 MG/10 ML VIAL IV SCH ×2 (10:41→16:36)
[2018-07-28] MEDS: PANTOPRAZOLE 40 MG TABLET PO SCH (10:43)
[2018-07-28] MEDS: PREGABALIN 75 MG CAPSULE PO SCH ×2 (10:43→20:58)
[2018-07-28] MEDS: amLODIPine 5 MG TABLET PO SCH (10:43)
[2018-07-28] MEDS: ASPIRIN EC 81 MG TABLET PO SCH (10:43)
[2018-07-28] MEDS: LACTOBACILLUS ACIDOPHILUS/BULGARICUS CAPLET PO SCH (10:43)
[2018-07-28] MEDS: METOPROLOL TARTRATE 25 MG TABLET PO SCH ×2 (10:43→20:58)
[2018-07-28] MEDS: CALCIUM (CARBONATE)/VITAMIN D 600 MG-400 UNIT TABLET PO SCH (10:43)
[2018-07-28] MEDS: CYANOCOBALAMIN 500 MCG TABLET PO SCH (10:43)
[2018-07-28] MEDS: INSULIN GLARGINE 100 UNIT/ML SUBCUT SCH ×2 (10:45→12:47)
[2018-07-28] MEDS: INSULIN REGULAR 100 UNIT/ML SUBCUT SCH ×5 (10:45→20:59)
[2018-07-28] MEDS: FLUTICASONE 50 MCG NASAL SPRAY 16 GM BOTTLE BOTH NARES SCH (10:45)
[2018-07-28] MEDS ORDERED: MAGNESIUM SULF RIDER 100 ML IV ONE (14:35)
[2018-07-28] MEDS: LOVASTATIN 20 MG TABLET PO SCH (16:59)
[2018-07-28] MEDS ORDERED: SIMVASTATIN 10 MG TABLET PO SCH (18:00)
[2018-07-28] MEDS: LEVOFLOXACIN INJ 750 MG in PREMIX 1 EACH IV SCH (22:35)
[2018-07-29] MEDS: methylPREDNISolone SOD SUC 125 MG/2 ML VIAL IV SCH (01:10)
[2018-07-29] MEDS: PIPERACILLIN/TAZOBACTAM 3,375 MG in SODIUM CHLORIDE 0.9% 100 ML IV SCH (01:13)
[2018-07-29] MEDS: ALBUTEROL 2.5 MG/3 ML NEB RESP TX SCH ×3 (03:00→10:53)
[2018-07-29 04:55] LABS: Basophils % 0.2 % (0.0-0.8); Eosinophils % 0.5 % (0.00-10.9); Hemoglobin 8.9 GM/DL (12.0-16.0); Immature Granulocytes % 1.9 %; Immature Granulocytes Absolute 0.08 #; Lymphocytes # 0.6 10*3/uL (1.4-4.0); Lymphocytes % 14.8 % (21.3-54.2); Mean Corpuscular HGB Conc 28.5 GM/DL (32-36); Mean Corpuscular Hemoglobin 22 PG (27-34); Mean Corpuscular Volume 78.2 FL (87-102); Monocytes # 0.7 10*3/uL (0.11-0.8); Monocytes % 17.7 % (1.7-12.7); NRBC # 0.04 10*3/uL; Neutrophils # 2.7 10*3/uL (1.4-7.4); Neutrophils % 64.9 % (38.7-73.9); Red Blood Count 3.99 MC/CUMM (3.8-5.5); Red Cell Distribution Width 18.9 % (9.3-17.3); White Blood Count 4.2 T/CUMM (4-12)
[2018-07-29 04:57] LABS: Hematocrit 31.2 VOL% (35.7-47.0); Platelet Count 152 T/CUMM (130-400)
[2018-07-29 05:14] LABS: Albumin 2.7 G/DL (3.4-5.0); Calcium 7.7 MG/DL (8.5-10.1); Osmolality,Calculated 302.7 MOS/KG (273-304); Potassium 3.9 MMOL/L (3.5-5.1); Total Protein 6.1 G/DL (6.4-8.3)
[2018-07-29 05:38] LABS: Hypochromasia 1+; Lymphocytes 23 % (20-55); Metamyelocytes 1 %; Platelet Estimate Decreased; Polychromasia Few; Segmented Neutrophils 74 % (50-85); Total Cells Counted 100
[2018-07-29] MEDS ORDERED: FUROSEMIDE 80 MG TABLET PO SCH (09:00)
[2018-07-29] MEDS ORDERED: LEVOFLOXACIN 750 MG TABLET PO SCH (09:00)
[2018-07-29] MEDS ORDERED: predniSONE 20 MG TABLET PO SCH (09:00)
[2018-07-29] MEDS: PREGABALIN 75 MG CAPSULE PO SCH (09:04)
[2018-07-29] MEDS: LACTOBACILLUS ACIDOPHILUS/BULGARICUS CAPLET PO SCH (09:04)
[2018-07-29] MEDS: ASPIRIN EC 81 MG TABLET PO SCH (09:05)
[2018-07-29] MEDS: PANTOPRAZOLE 40 MG TABLET PO SCH (09:05)
[2018-07-29] MEDS: LEVOTHYROXINE 50 MCG TABLET PO SCH (09:05)
[2018-07-29] MEDS: CYANOCOBALAMIN 500 MCG TABLET PO SCH (09:05)
[2018-07-29] MEDS: amLODIPine 5 MG TABLET PO SCH (09:05)
[2018-07-29] MEDS: METOPROLOL TARTRATE 25 MG TABLET PO SCH (09:05)
[2018-07-29] MEDS: CALCIUM (CARBONATE)/VITAMIN D 600 MG-400 UNIT TABLET PO SCH (09:05)
[2018-07-29] MEDS: FLUTICASONE 50 MCG NASAL SPRAY 16 GM BOTTLE BOTH NARES SCH (09:06)
[2018-07-29] MEDS: INSULIN REGULAR 100 UNIT/ML SUBCUT SCH ×2 (09:14→12:03)
[2018-07-29] MEDS: INSULIN GLARGINE 100 UNIT/ML SUBCUT SCH (09:16)
[2018-07-29] MEDS: FUROSEMIDE 100 MG/10 ML VIAL IV SCH (09:28)
[2018-07-29 11:59] VITALS: BP 103/58
== END 2018-07-29 12:26 | DRG 193 ==
LOC: N.ED 23:20 → SUATTDRO 07-25 03:30 → N.EDINP 07-25 03:30 → N.2E 07-25 04:04
PROVIDERS: ADMIT Internal Medicine; ATTEND Internal Medicine Cardiovascular Disease

== ENCOUNTER 2019-05-07 06:33 | Inpatient (IN) ==
[2019-05-07] MEDS ORDERED: cefTRIAXone 2,000 MG in SODIUM CHLORIDE 0.9% 100 ML IV ONE (07:04)
[2019-05-07] MEDS ORDERED: SODIUM CHLORIDE 0.9% 1,000 ML IV STA (07:09)
[2019-05-07 07:14] LABS: Basophils % 0.5 % (0.0-0.8); Eosinophils # 0.1 10*3/uL (0.0-0.87); Eosinophils % 0.9 % (0.00-10.9); Hematocrit 36.5 VOL% (35.7-47.0); Hemoglobin 11.3 GM/DL (12.0-16.0); Immature Granulocytes % 0.5 %; Immature Granulocytes Absolute 0.03 #; Lymphocytes # 2.2 10*3/uL (1.4-4.0); Lymphocytes % 35.1 % (21.3-54.2); Mean Corpuscular Volume 81.5 FL (87-102); Mean Platelet Volume 11.6 FL (9.6-12.0); Monocytes % 24.2 % (1.7-12.7); NRBC # 0.02 10*3/uL; Neutrophils % 38.8 % (38.7-73.9); Red Blood Count 4.48 MC/CUMM (3.8-5.5); Red Cell Distribution Width 17.4 % (9.3-17.3); White Blood Count 6.4 T/CUMM (4-12)
[2019-05-07 07:15] LABS: Platelet Count 76 T/CUMM (130-400)
[2019-05-07 07:21] LABS: Albumin 3.3 G/DL (3.4-5.0); Bilirubin,Total 0.8 MG/DL (0.2-1.0); Calcium 9.1 MG/DL (8.5-10.1); Osmolality,Calculated 296.5 MOS/KG (273-304); Total Protein 7.2 G/DL (6.4-8.3)
[2019-05-07] MEDS ORDERED: cefTRIAXone 1,000 MG VIAL ONE (07:45)
[2019-05-07 07:53] LABS: Lymphocytes 42 % (20-55); Segmented Neutrophils 43 % (50-85); Total Cells Counted 100
[2019-05-07 07:54] LABS: Atypical Lymphocytes Few; Hypochromasia 1+; Microcytosis Slight; Platelet Estimate Decreased
[2019-05-07 07:58] LABS: Apearance,Urine Slightly Hazy (Clear); Bacteria,Urine Moderate /HPF (Few); Bilirubin,Urine Negative (Negative); Blood, Urine Small mg/dL (Negative); Glucose,Urine (UA) Negative (Negative); Hyaline Casts,Urine 3 /LPF (0-3); Ketones,Urine Negative (Negative); Mucus,Urine Occasional /LPF (Occasional); Nitrite,Urine Positive (Negative); Protein,Urine Negative; RBC,Urine 1 /HPF (0-4); Squamous Epithelial Cell,Urine Occasional /HPF (0-10); Urine Color Yellow (Yellow); Urine Specific Gravity 1.009 (1.001-1.035); Urine Urobilinogen < 2.0 EU/DL (0.2-1.0); WBC,Urine 5 /HPF (0-6)
[2019-05-07] MEDS ORDERED: ONDANSETRON 4 MG/2 ML VIAL IV PRN (09:24)
[2019-05-07] MEDS ORDERED: ALBUTEROL/IPRATROPIUM 3 ML NEB RESP TX PRN (09:29)
[2019-05-07] MEDS ORDERED: ENOXAPARIN 30 MG/0.3 ML SYRINGE SUBCUT SCH (09:30)
[2019-05-07] MEDS ORDERED: SODIUM CHLORIDE 0.9% 1,000 ML IV SCH (09:30)
[2019-05-07] MEDS ORDERED: LEVOFLOXACIN INJ 750 MG in PREMIX 1 EACH IV SCH (09:30)
[2019-05-07] MEDS: ALBUTEROL 2.5 MG/3 ML NEB RESP TX SCH ×2 (13:07→18:49)
[2019-05-07] MEDS ORDERED: GLUCAGON 1 MG VIAL IM PRN (13:50)
[2019-05-07] MEDS ORDERED: DEXTROSE 50% 25 GM/50 ML VIAL IV PRN (13:50)
[2019-05-07] MEDS ORDERED: hydrALAZINE 20 MG/1 ML VIAL IV PRN (13:54)
[2019-05-07] MEDS: SODIUM CHLORIDE 0.9% 1,000 ML IV SCH (14:10)
[2019-05-07] MEDS: PIPERACILLIN/TAZOBACTAM 3,375 MG in SODIUM CHLORIDE 0.9% 100 ML IV SCH ×2 (14:10→23:43)
[2019-05-07] MEDS: INSULIN REGULAR 100 UNIT/ML SUBCUT SCH ×2 (18:28→23:43)
[2019-05-08] MEDS: ALBUTEROL 2.5 MG/3 ML NEB RESP TX SCH ×2 (00:32→07:37)
[2019-05-08 05:09] LABS: Eosinophils % 0.7 % (0.00-10.9); Hematocrit 33.9 VOL% (35.7-47.0); Hemoglobin 10.5 GM/DL (12.0-16.0); Immature Granulocytes % 0.3 %; Immature Granulocytes Absolute 0.02 #; Lymphocytes # 1.1 10*3/uL (1.4-4.0); Lymphocytes % 19.9 % (21.3-54.2); Mean Corpuscular Volume 81.9 FL (87-102); Mean Platelet Volume 11.6 FL (9.6-12.0); Neutrophils % 49.1 % (38.7-73.9); Red Blood Count 4.14 MC/CUMM (3.8-5.5); Red Cell Distribution Width 17.4 % (9.3-17.3); White Blood Count 5.7 T/CUMM (4-12)
[2019-05-08 05:11] LABS: Platelet Count 83 T/CUMM (130-400)
[2019-05-08 05:22] LABS: Calcium 8.6 MG/DL (8.5-10.1); Osmolality,Calculated 308.7 MOS/KG (273-304)
[2019-05-08 05:46] LABS: Band Neutrophils 3 % (0-10); Lymphocytes 35 % (20-55); Segmented Neutrophils 49 % (50-85); Total Cells Counted 100
[2019-05-08 05:47] LABS: Atypical Lymphocytes Few; Hypochromasia 2+; Microcytosis 1+; Target Cells Slight
[2019-05-08 05:48] LABS: Platelet Estimate Decreased; Polychromasia Slight
[2019-05-08] MEDS: INSULIN REGULAR 100 UNIT/ML SUBCUT SCH ×3 (06:20→17:16)
[2019-05-08] MEDS: PIPERACILLIN/TAZOBACTAM 3,375 MG in SODIUM CHLORIDE 0.9% 100 ML IV SCH ×3 (07:26→23:28)
[2019-05-08] MEDS ORDERED: LEVALBUTEROL 1.25 MG/3 ML NEB RESP TX PRN (07:58)
[2019-05-08] MEDS ORDERED: METOPROLOL TARTRATE 5 MG/5 ML VIAL IV PRN (08:08)
[2019-05-08 09:04] LABS: ABG Base Excess 5.6 MMOL/L (-2.5-2.5); ABG HCO3 29.3 MMOL/L (20-26); ABG Oxygen Saturation 89.4 % (95-100); ABG PCO2 52.9 MM HG (35-48); ABG PH 7.387 (7.35-7.45); ABG PO2 56.6 MM HG (80-95); ABG TCO2 28.8 MMOL/L (23-27)
[2019-05-08] MEDS: FAMOTIDINE 20 MG/2 ML VIAL IV SCH ×2 (09:15→20:49)
[2019-05-08] MEDS: VANCOMYCIN INJ 2,000 MG in SODIUM CHLORIDE 0.9% 500 ML IV SCH ×2 (11:05→20:50)
[2019-05-08] MEDS ORDERED: IPRATROPIUM 500 MCG/2.5 ML NEB RESP TX SCH (15:00)
[2019-05-08] MEDS: SODIUM CHLORIDE 0.9% 1,000 ML IV SCH (15:16)
[2019-05-08] MEDS: methylPREDNISolone SOD SUC 40 MG/1 ML VIAL IV SCH (15:55)
[2019-05-08] MEDS: THEOPHYLLINE ER 300 MG TABLET PO SCH (16:14)
[2019-05-08] MEDS: ACETAMINOPHEN 650 MG SUPP RECTAL PRN ×2 (16:26→20:55)
[2019-05-08] MEDS: ALBUTEROL/IPRATROPIUM 3 ML NEB RESP TX SCH (19:05)
[2019-05-08] MEDS ORDERED: PREGABALIN 75 MG CAPSULE PO SCH (20:00)
[2019-05-08] MEDS ORDERED: INSULIN GLARGINE 100 UNIT/ML SUBCUT SCH (20:00)
[2019-05-08] MEDS ORDERED: SIMVASTATIN 10 MG TABLET PO SCH (20:00)
[2019-05-08] MEDS: METOPROLOL TARTRATE 25 MG TABLET PO SCH (21:07)
[2019-05-08] MEDS ORDERED: ACETAMINOPHEN 650 MG SUPP RECTAL ONE (22:22)
[2019-05-09] MEDS: ALBUTEROL/IPRATROPIUM 3 ML NEB RESP TX SCH ×2 (00:11→08:25)
[2019-05-09] MEDS: INSULIN REGULAR 100 UNIT/ML SUBCUT SCH ×4 (00:40→20:45)
[2019-05-09] MEDS: methylPREDNISolone SOD SUC 40 MG/1 ML VIAL IV SCH ×2 (00:40→09:04)
[2019-05-09] MEDS: ACETAMINOPHEN 650 MG SUPP RECTAL PRN ×3 (01:03→11:28)
[2019-05-09] MEDS ORDERED: LEVOTHYROXINE 50 MCG TABLET PO SCH (06:00)
[2019-05-09] MEDS: PIPERACILLIN/TAZOBACTAM 3,375 MG in SODIUM CHLORIDE 0.9% 100 ML IV SCH (06:01)
[2019-05-09] MEDS ORDERED: SODIUM CHLORIDE 0.9% 500 ML IV ONE (07:39)
[2019-05-09] MEDS ORDERED: ASPIRIN EC 81 MG TABLET PO SCH (08:00)
[2019-05-09] MEDS ORDERED: CYANOCOBALAMIN 500 MCG TABLET PO SCH (08:00)
[2019-05-09] MEDS ORDERED: CALCIUM (CARBONATE)/VITAMIN D 600 MG-400 UNIT TABLET PO SCH (08:00)
[2019-05-09] MEDS ORDERED: LACTOBACILLUS ACIDOPHILUS/BULGARICUS CAPLET PO SCH (08:00)
[2019-05-09 08:05] LABS: Basophils % 0.1 % (0.0-0.8); Eosinophils % 0.3 % (0.00-10.9); Hematocrit 34.7 VOL% (35.7-47.0); Hemoglobin 10.7 GM/DL (12.0-16.0); Immature Granulocytes % 1.3 %; Immature Granulocytes Absolute 0.16 #; Lymphocytes # 1.9 10*3/uL (1.4-4.0); Lymphocytes % 15.9 % (21.3-54.2); Mean Corpuscular HGB Conc 30.8 GM/DL (32-36); Mean Corpuscular Volume 81.1 FL (87-102); Mean Platelet Volume 11.7 FL (9.6-12.0); Monocytes % 13.8 % (1.7-12.7); Neutrophils % 68.6 % (38.7-73.9); Platelet Count 115 T/CUMM (130-400); Red Blood Count 4.28 MC/CUMM (3.8-5.5); Red Cell Distribution Width 17.9 % (9.3-17.3)
[2019-05-09] MEDS ORDERED: LORazepam 2 MG/1 ML VIAL IV PRN (08:08)
[2019-05-09] MEDS ORDERED: MORPHINE 4 MG/1 ML VIAL IV PRN (08:08)
[2019-05-09 08:27] LABS: Atypical Lymphocytes Few; Band Neutrophils 5 % (0-10); Eosinophils 1 % (0-10); Hypochromasia 1+; Lymphocytes 19 % (20-55); Ovalocytes Slight; Platelet Estimate Decreased; Segmented Neutrophils 64 % (50-85); Total Cells Counted 100
[2019-05-09 08:28] LABS: Microcytosis Slight
[2019-05-09 08:31] LABS: % Iron Saturation 8.2 % (18-50); Calcium 7.9 MG/DL (8.5-10.1); Ferritin 456.2 ng/ml (8-252)
[2019-05-09] MEDS: THEOPHYLLINE ER 300 MG TABLET PO SCH (09:04)
[2019-05-09] MEDS: METOPROLOL TARTRATE 25 MG TABLET PO SCH (09:04)
[2019-05-09] MEDS ORDERED: GLUCAGON 1 MG VIAL IM PRN (10:54)
[2019-05-09] MEDS ORDERED: DEXTROSE 50% 25 GM/50 ML VIAL IV PRN (10:54)
[2019-05-09] MEDS ORDERED: MEROPENEM 1,000 MG in SODIUM CHLORIDE 0.9% 100 ML IV SCH (11:00)
[2019-05-09] MEDS ORDERED: INSULIN NPH 100 UNIT/ML SUBCUT ONE (12:06)
[2019-05-09] MEDS: HEPARIN 5,000 UNIT/1 ML VIAL SUBCUT SCH ×2 (12:53→20:45)
[2019-05-09] MEDS: SODIUM CHLORIDE 0.9% 1,000 ML IV SCH ×2 (16:45→17:06)
[2019-05-09] MEDS: MEROPENEM 500 MG in SODIUM CHLORIDE 0.9% 100 ML IV SCH ×2 (17:06→23:09)
[2019-05-09] MEDS: LEVOFLOXACIN INJ 500 MG in PREMIX 1 EACH IV SCH (17:15)
[2019-05-09] MEDS ORDERED: INSULIN GLARGINE 100 UNIT/ML SUBCUT SCH (21:00)
[2019-05-09] MEDS: ACETAMINOPHEN 325 MG TABLET PO PRN (23:11)
[2019-05-10] MEDS: SODIUM CHLORIDE 0.9% 1,000 ML IV SCH ×3 (00:54→13:25)
[2019-05-10] MEDS: HEPARIN 5,000 UNIT/1 ML VIAL SUBCUT SCH ×3 (02:44→23:21)
[2019-05-10 04:03] LABS: Basophils % 0.2 % (0.0-0.8); Eosinophils # 0.3 10*3/uL (0.0-0.87); Eosinophils % 2.7 % (0.00-10.9); Hematocrit 32.2 VOL% (35.7-47.0); Immature Granulocytes % 0.8 %; Immature Granulocytes Absolute 0.09 #; Lymphocytes # 2.2 10*3/uL (1.4-4.0); Lymphocytes % 19.9 % (21.3-54.2); Mean Corpuscular HGB Conc 31.1 GM/DL (32-36); Mean Corpuscular Volume 80.9 FL (87-102); Mean Platelet Volume 11.6 FL (9.6-12.0); NRBC # 0.03 10*3/uL; Neutrophils % 62.4 % (38.7-73.9); Platelet Count 112 T/CUMM (130-400); Red Blood Count 3.98 MC/CUMM (3.8-5.5); Red Cell Distribution Width 18.3 % (9.3-17.3); White Blood Count 10.9 T/CUMM (4-12)
[2019-05-10 04:19] LABS: Calcium 7.4 MG/DL (8.5-10.1); Osmolality,Calculated 326.7 MOS/KG (273-304)
[2019-05-10 05:04] LABS: Band Neutrophils 7 % (0-10); Eosinophils 4 % (0-10); Lymphocytes 19 % (20-55); Metamyelocytes 2 %; Platelet Estimate Decreased; Segmented Neutrophils 53 % (50-85); Total Cells Counted 100
[2019-05-10] MEDS: INSULIN REGULAR 100 UNIT/ML SUBCUT SCH ×4 (07:53→23:21)
[2019-05-10] MEDS ORDERED: SODIUM CHLORIDE 0.9% 1,000 ML IV ONE (11:39)
[2019-05-10] MEDS ORDERED: VANCOMYCIN INJ 2,000 MG in SODIUM CHLORIDE 0.9% 500 ML IV PRN (11:41)
[2019-05-10 12:09] LABS: ABG Base Excess 0.9 MMOL/L (-2.5-2.5); ABG HCO3 27.9 MMOL/L (20-26); ABG Oxygen Saturation 98.7 % (95-100); ABG PCO2 56.6 MM HG (35-48); ABG PO2 154.5 MM HG (80-95); ABG TCO2 29.6 MMOL/L (23-27)
[2019-05-10] MEDS ORDERED: ALTEPLASE 2 MG VIAL IV ONE (12:33)
[2019-05-10] MEDS ORDERED: SODIUM CHLORIDE 0.45% 1,000 ML IV ONE (13:50)
[2019-05-10] MEDS: NOREPINEPHRINE 8 MG in SODIUM CHLORIDE 0.9% 242 ML IV PRN (13:55)
[2019-05-10 14:16] LABS: Apearance,Urine CLOUDY (Clear); Bilirubin,Urine Negative (Negative); Blood, Urine Moderate mg/dL (Negative); Glucose,Urine (UA) 50 mg/dL (Negative); Ketones,Urine 5 mg/dL (Negative); Nitrite,Urine Negative (Negative); Protein,Urine 30 MG/DL; Squamous Epithelial Cell,Urine Occasional /HPF (0-10); Urine Color Amber (Yellow); Urine Specific Gravity 1.019 (1.001-1.035); Urine Urobilinogen < 2.0 EU/DL (0.2-1.0); WBC,Urine 12 /HPF (0-6)
[2019-05-10] MEDS: SODIUM CHLORIDE 0.45% 1,000 ML IV SCH ×2 (15:00→21:24)
[2019-05-10] MEDS: MEROPENEM 500 MG in SODIUM CHLORIDE 0.9% 100 ML IV SCH (15:00)
[2019-05-10] MEDS: INSULIN GLARGINE 100 UNIT/ML SUBCUT SCH (21:20)
[2019-05-11] MEDS: MEROPENEM 500 MG in SODIUM CHLORIDE 0.9% 100 ML IV SCH ×2 (02:24→14:40)
[2019-05-11] MEDS: SODIUM CHLORIDE 0.45% 1,000 ML IV SCH ×3 (04:36→17:30)
[2019-05-11 05:09] LABS: Basophils % 0.1 % (0.0-0.8); Eosinophils # 0.6 10*3/uL (0.0-0.87); Eosinophils % 4.8 % (0.00-10.9); Hematocrit 27.3 VOL% (35.7-47.0); Hemoglobin 8.2 GM/DL (12.0-16.0); Immature Granulocytes % 1.4 %; Immature Granulocytes Absolute 0.17 #; Lymphocytes # 2.6 10*3/uL (1.4-4.0); Lymphocytes % 21.5 % (21.3-54.2); Mean Corpuscular Volume 82.2 FL (87-102); Mean Platelet Volume 12.1 FL (9.6-12.0); Monocytes % 18.3 % (1.7-12.7); NRBC # 0.02 10*3/uL; Neutrophils % 53.9 % (38.7-73.9); Platelet Count 110 T/CUMM (130-400); Red Blood Count 3.32 MC/CUMM (3.8-5.5); Red Cell Distribution Width 18.6 % (9.3-17.3); White Blood Count 11.9 T/CUMM (4-12)
[2019-05-11 05:35] LABS: Band Neutrophils 4 % (0-10); Eosinophils 6 % (0-10); Hypochromasia 1+; Lymphocytes 21 % (20-55); Microcytosis Slight; Ovalocytes Slight; Platelet Estimate Decreased; Segmented Neutrophils 61 % (50-85); Total Cells Counted 100
[2019-05-11] MEDS: HEPARIN 5,000 UNIT/1 ML VIAL SUBCUT SCH ×3 (06:19→22:11)
[2019-05-11] MEDS: INSULIN REGULAR 100 UNIT/ML SUBCUT SCH ×4 (06:19→21:12)
[2019-05-11 06:25] LABS: Albumin 1.9 G/DL (3.4-5.0); Bilirubin,Total 1.5 MG/DL (0.2-1.0); Calcium 6.6 MG/DL (8.5-10.1); Total Protein 4.6 G/DL (6.4-8.3)
[2019-05-11] MEDS: LEVOFLOXACIN INJ 500 MG in PREMIX 1 EACH IV SCH (12:30)
[2019-05-11] MEDS: NOREPINEPHRINE 8 MG in SODIUM CHLORIDE 0.9% 242 ML IV PRN (15:10)
[2019-05-11] MEDS: INSULIN GLARGINE 100 UNIT/ML SUBCUT SCH (21:13)
[2019-05-12] MEDS: SODIUM CHLORIDE 0.45% 1,000 ML IV SCH ×3 (00:07→14:14)
[2019-05-12] MEDS: MEROPENEM 500 MG in SODIUM CHLORIDE 0.9% 100 ML IV SCH ×2 (02:03→14:55)
[2019-05-12 04:13] LABS: Basophils % 0.1 % (0.0-0.8); Eosinophils # 0.3 10*3/uL (0.0-0.87); Eosinophils % 4.5 % (0.00-10.9); Hematocrit 28.1 VOL% (35.7-47.0); Hemoglobin 8.3 GM/DL (12.0-16.0); Immature Granulocytes % 0.8 %; Immature Granulocytes Absolute 0.06 #; Lymphocytes % 27.1 % (21.3-54.2); Mean Corpuscular HGB Conc 29.5 GM/DL (32-36); Mean Corpuscular Volume 84.1 FL (87-102); Mean Platelet Volume 11.6 FL (9.6-12.0); Monocytes % 20.3 % (1.7-12.7); Neutrophils % 47.2 % (38.7-73.9); Platelet Count 96 T/CUMM (130-400); Red Blood Count 3.34 MC/CUMM (3.8-5.5); Red Cell Distribution Width 18.6 % (9.3-17.3); White Blood Count 7.3 T/CUMM (4-12)
[2019-05-12 04:20] LABS: Calcium 7.4 MG/DL (8.5-10.1); Osmolality,Calculated 314.7 MOS/KG (273-304)
[2019-05-12 05:15] LABS: Eosinophils 4 % (0-10); Lymphocytes 30 % (20-55); Segmented Neutrophils 56 % (50-85); Total Cells Counted 100
[2019-05-12 05:16] LABS: Anisocytosis 1+; Hypochromasia 1+; Microcytosis 1+
[2019-05-12 05:17] LABS: Platelet Estimate Decreased
[2019-05-12 05:18] LABS: Ovalocytes Few
[2019-05-12 05:19] LABS: Stomatocytes Slight
[2019-05-12] MEDS: HEPARIN 5,000 UNIT/1 ML VIAL SUBCUT SCH ×3 (06:16→23:23)
[2019-05-12] MEDS: INSULIN REGULAR 100 UNIT/ML SUBCUT SCH ×4 (09:06→20:55)
[2019-05-12] MEDS: INSULIN GLARGINE 100 UNIT/ML SUBCUT SCH (21:24)
[2019-05-13] MEDS: MEROPENEM 500 MG in SODIUM CHLORIDE 0.9% 100 ML IV SCH ×2 (03:04→15:00)
[2019-05-13] MEDS: SODIUM CHLORIDE 0.45% 1,000 ML IV SCH ×4 (03:08→23:10)
[2019-05-13] MEDS: HEPARIN 5,000 UNIT/1 ML VIAL SUBCUT SCH ×3 (06:10→23:42)
[2019-05-13 06:29] LABS: Basophils % 0.3 % (0.0-0.8); Eosinophils # 0.2 10*3/uL (0.0-0.87); Eosinophils % 3.7 % (0.00-10.9); Hematocrit 30.3 VOL% (35.7-47.0); Hemoglobin 9.1 GM/DL (12.0-16.0); Immature Granulocytes % 1.6 %; Lymphocytes # 2.1 10*3/uL (1.4-4.0); Lymphocytes % 32.8 % (21.3-54.2); Mean Corpuscular Volume 83.5 FL (87-102); Mean Platelet Volume 11.5 FL (9.6-12.0); Monocytes % 17.5 % (1.7-12.7); NRBC # 0.02 10*3/uL; Neutrophils % 44.1 % (38.7-73.9); Platelet Count 82 T/CUMM (130-400); Red Blood Count 3.63 MC/CUMM (3.8-5.5); Red Cell Distribution Width 18.3 % (9.3-17.3); White Blood Count 6.3 T/CUMM (4-12)
[2019-05-13 06:50] LABS: Calcium 7.9 MG/DL (8.5-10.1); Osmolality,Calculated 307.8 MOS/KG (273-304)
[2019-05-13 07:24] LABS: Band Neutrophils 9 % (0-10); Eosinophils 9 % (0-10); Lymphocytes 26 % (20-55); Nucleated Red Blood Cells 1 (0-5); Segmented Neutrophils 45 % (50-85); Total Cells Counted 100
[2019-05-13 07:25] LABS: Platelet Estimate Decreased; Smudge Cells 1+
[2019-05-13 07:27] LABS: Anisocytosis Slight
[2019-05-13] MEDS: INSULIN REGULAR 100 UNIT/ML SUBCUT SCH ×4 (08:30→21:00)
[2019-05-13] MEDS: LEVOFLOXACIN INJ 500 MG in PREMIX 1 EACH IV SCH (13:20)
[2019-05-13] MEDS: INSULIN GLARGINE 100 UNIT/ML SUBCUT SCH (21:01)
[2019-05-14] MEDS: SODIUM CHLORIDE 0.45% 1,000 ML IV SCH ×3 (02:49→12:49)
[2019-05-14] MEDS: MEROPENEM 500 MG in SODIUM CHLORIDE 0.9% 100 ML IV SCH ×2 (02:50→14:34)
[2019-05-14 04:02] LABS: Basophils % 0.3 % (0.0-0.8); Eosinophils # 0.2 10*3/uL (0.0-0.87); Eosinophils % 3.1 % (0.00-10.9); Hematocrit 26.6 VOL% (35.7-47.0); Immature Granulocytes % 1.9 %; Immature Granulocytes Absolute 0.12 #; Lymphocytes # 2.2 10*3/uL (1.4-4.0); Lymphocytes % 35.2 % (21.3-54.2); Mean Corpuscular HGB Conc 30.1 GM/DL (32-36); Mean Corpuscular Volume 84.4 FL (87-102); Mean Platelet Volume 11.2 FL (9.6-12.0); Monocytes % 19.7 % (1.7-12.7); NRBC # 0.02 10*3/uL; Neutrophils % 39.8 % (38.7-73.9); Platelet Count 82 T/CUMM (130-400); Red Blood Count 3.15 MC/CUMM (3.8-5.5); Red Cell Distribution Width 18.3 % (9.3-17.3); White Blood Count 6.4 T/CUMM (4-12)
[2019-05-14 04:20] LABS: Calcium 7.8 MG/DL (8.5-10.1); Osmolality,Calculated 307.7 MOS/KG (273-304)
[2019-05-14 04:51] LABS: Band Neutrophils 2 % (0-10); Eosinophils 4 % (0-10); Lymphocytes 34 % (20-55); Segmented Neutrophils 41 % (50-85); Total Cells Counted 100
[2019-05-14 04:52] LABS: Anisocytosis 1+; Ovalocytes 1+; Platelet Estimate Decreased
[2019-05-14] MEDS: HEPARIN 5,000 UNIT/1 ML VIAL SUBCUT SCH ×3 (06:00→22:49)
[2019-05-14] MEDS: INSULIN REGULAR 100 UNIT/ML SUBCUT SCH ×4 (08:19→20:32)
[2019-05-14] MEDS: POTASSIUM CHLORIDE 20 MEQ TABLET PO SCH ×2 (14:33→20:31)
[2019-05-14] MEDS ORDERED: diphenhydrAMINE CAP 25 MG CAPSULE PO ONE (18:16)
[2019-05-14] MEDS: ACETAMINOPHEN 325 MG TABLET PO PRN (20:31)
[2019-05-14] MEDS: INSULIN GLARGINE 100 UNIT/ML SUBCUT SCH (20:32)
[2019-05-15] MEDS: MEROPENEM 500 MG in SODIUM CHLORIDE 0.9% 100 ML IV SCH ×2 (02:50→15:52)
[2019-05-15 05:15] LABS: Basophils % 0.2 % (0.0-0.8); Eosinophils # 0.2 10*3/uL (0.0-0.87); Eosinophils % 2.5 % (0.00-10.9); Hematocrit 26.1 VOL% (35.7-47.0); Immature Granulocytes % 4.4 %; Immature Granulocytes Absolute 0.26 #; Lymphocytes # 2.3 10*3/uL (1.4-4.0); Lymphocytes % 38.2 % (21.3-54.2); Mean Corpuscular HGB Conc 30.7 GM/DL (32-36); Mean Corpuscular Volume 81.8 FL (87-102); Mean Platelet Volume 11.5 FL (9.6-12.0); Monocytes % 19.9 % (1.7-12.7); NRBC # 0.03 10*3/uL; Neutrophils % 34.8 % (38.7-73.9); Platelet Count 100 T/CUMM (130-400); Red Blood Count 3.19 MC/CUMM (3.8-5.5); Red Cell Distribution Width 18.5 % (9.3-17.3); White Blood Count 5.9 T/CUMM (4-12)
[2019-05-15 05:30] LABS: Calcium 7.7 MG/DL (8.5-10.1)
[2019-05-15 05:43] LABS: Band Neutrophils 2 % (0-10); Eosinophils 4 % (0-10); Hypochromasia 1+; Lymphocytes 33 % (20-55); Nucleated Red Blood Cells 1 (0-5); Platelet Estimate Decreased; Segmented Neutrophils 48 % (50-85); Total Cells Counted 100
[2019-05-15] MEDS: HEPARIN 5,000 UNIT/1 ML VIAL SUBCUT SCH ×3 (06:12→23:05)
[2019-05-15] MEDS: INSULIN REGULAR 100 UNIT/ML SUBCUT SCH ×4 (07:57→21:16)
[2019-05-15] MEDS: POTASSIUM CHLORIDE 20 MEQ TABLET PO SCH (08:32)
[2019-05-15] MEDS: ACETAMINOPHEN 325 MG TABLET PO PRN ×2 (08:33→23:30)
[2019-05-15] MEDS: LEVOFLOXACIN INJ 500 MG in PREMIX 1 EACH IV SCH (13:14)
[2019-05-15] MEDS: MENTHOL/ZINC OXIDE OINT 71 GM JAR TOP SCH ×2 (15:52→21:17)
[2019-05-15] MEDS: POTASSIUM CHLORIDE 20 MEQ TABLET PO PRN ×3 (17:34→23:31)
[2019-05-15] MEDS: INSULIN GLARGINE 100 UNIT/ML SUBCUT SCH (21:15)
[2019-05-16] MEDS: MEROPENEM 500 MG in SODIUM CHLORIDE 0.9% 100 ML IV SCH (04:10)
[2019-05-16] MEDS: HEPARIN 5,000 UNIT/1 ML VIAL SUBCUT SCH (06:35)
[2019-05-16] MEDS: INSULIN REGULAR 100 UNIT/ML SUBCUT SCH ×2 (08:38→13:10)
[2019-05-16] MEDS: MENTHOL/ZINC OXIDE OINT 71 GM JAR TOP SCH (08:39)
[2019-05-16 14:04] VITALS: BP 129/70
== END 2019-05-16 13:44 | DRG 871 ==
LOC: EDUNIT# → EDBD → N.ED 06:33 → N.EDINP 09:24 → SUATTDRO 09:24 → N.5E 10:37 → N.ICU 05-10 13:23 → N.5E 05-12 16:45
PROVIDERS: ADMIT Hospitalist; ATTEND Internal Medicine Nephrology

== ENCOUNTER 2019-05-26 11:59 | Inpatient (IN) ==
[2019-05-26] MEDS ORDERED: ALBUTEROL/IPRATROPIUM 3 ML NEB RESP TX STA (12:26)
[2019-05-26] MEDS ORDERED: cefTRIAXone 1,000 MG in SODIUM CHLORIDE 0.9% 100 ML IV STA (12:26)
[2019-05-26 14:45] LABS: Basophils % 0.7 % (0.0-0.8); Eosinophils # 0.2 10*3/uL (0.0-0.87); Eosinophils % 4.9 % (0.00-10.9); Hematocrit 27.9 VOL% (35.7-47.0); Hemoglobin 8.2 GM/DL (12.0-16.0); Immature Granulocytes % 0.2 %; Immature Granulocytes Absolute 0.01 #; Lymphocytes # 1.5 10*3/uL (1.4-4.0); Lymphocytes % 35.3 % (21.3-54.2); Mean Corpuscular HGB Conc 29.4 GM/DL (32-36); Mean Corpuscular Volume 85.6 FL (87-102); Mean Platelet Volume 12.5 FL (9.6-12.0); Monocytes % 21.7 % (1.7-12.7); Neutrophils % 37.2 % (38.7-73.9); Platelet Count 116 T/CUMM (130-400); Red Blood Count 3.26 MC/CUMM (3.8-5.5); Red Cell Distribution Width 20.6 % (9.3-17.3); White Blood Count 4.1 T/CUMM (4-12)
[2019-05-26 14:58] LABS: PT Patient Result 10.9 SECS (9.6-12.2)
[2019-05-26 15:07] LABS: Albumin 2.7 G/DL (3.4-5.0); Bilirubin,Total 0.6 MG/DL (0.2-1.0); Total Protein 7.2 G/DL (6.4-8.3)
[2019-05-26] MEDS ORDERED: MAGNESIUM SULF RIDER 2 GM in PREMIX 1 EACH IV STA (15:28)
[2019-05-26 16:14] LABS: Anisocytosis 3+; Eosinophils 4 % (0-10); Hypochromasia 4+; Lymphocytes 39 % (20-55); Nucleated Red Blood Cells 1 (0-5); Polychromasia 2+; Segmented Neutrophils 43 % (50-85); Total Cells Counted 100
[2019-05-26 16:15] LABS: Atypical Lymphocytes Few; Microcytosis 1+; Poikilocytosis 2+
[2019-05-26 16:16] LABS: Platelet Estimate Adequate; Reactive Lymphocytes 1+
[2019-05-26] MEDS ORDERED: ONDANSETRON 4 MG/2 ML VIAL IV PRN (16:44)
[2019-05-26] MEDS ORDERED: DEXTROSE 10% 250 ML BAG IV PRN (16:44)
[2019-05-26] MEDS ORDERED: DOCUSATE SODIUM 100 MG CAPSULE PO PRN (16:44)
[2019-05-26] MEDS ORDERED: GLUCAGON 1 MG VIAL IM PRN (16:44)
[2019-05-26] MEDS ORDERED: LACTULOSE 20 GM/30 ML UDCUP PO PRN (16:44)
[2019-05-26] MEDS ORDERED: ALBUTEROL/IPRATROPIUM 3 ML NEB RESP TX PRN (16:44)
[2019-05-26] MEDS ORDERED: guaiFENesin/DM ER 600-30 MG TABLET PO PRN (16:44)
[2019-05-26] MEDS: PIPERACILLIN/TAZOBACTAM 3,375 MG in SODIUM CHLORIDE 0.9% 100 ML IV SCH (18:59)
[2019-05-26] MEDS ORDERED: METOPROLOL TARTRATE 5 MG/5 ML VIAL IV ONE (19:35)
[2019-05-26 19:36] LABS: ABG Base Excess 14.5 MMOL/L (-2.5-2.5); ABG HCO3 38.4 MMOL/L (20-26); ABG PH 7.382 (7.35-7.45); Allen Test Positive
[2019-05-26 19:41] LABS: ABG PCO2 71.7 MM HG (35-48)
[2019-05-26] MEDS ORDERED: ACETAMINOPHEN 650 MG SUPP RECTAL PRN (19:43)
[2019-05-26] MEDS ORDERED: LEVOFLOXACIN INJ 750 MG in PREMIX 1 EACH IV SCH (20:00)
[2019-05-26] MEDS ORDERED: ONDANSETRON 4 MG TABLET PO PRN (20:04)
[2019-05-26] MEDS ORDERED: ACETAMINOPHEN 325 MG TABLET PO PRN (20:04)
[2019-05-26 20:50] LABS: Apearance,Urine CLEAR (Clear); Bacteria,Urine Many /HPF (Few); Bilirubin,Urine Negative (Negative); Blood, Urine Small mg/dL (Negative); Glucose,Urine (UA) Negative (Negative); Ketones,Urine Negative (Negative); Mucus,Urine Many /LPF (Occasional); Nitrite,Urine Negative (Negative); Protein,Urine Negative; RBC,Urine 8 /HPF (0-4); Squamous Epithelial Cell,Urine Occasional /HPF (0-10); Urine Color Yellow (Yellow); Urine Specific Gravity 1.008 (1.001-1.035); Urine Urobilinogen < 2.0 EU/DL (0.2-1.0); WBC,Urine 15 /HPF (0-6)
[2019-05-26] MEDS: PREGABALIN 75 MG CAPSULE PO SCH (21:14)
[2019-05-26] MEDS: INSULIN LISPRO 100 UNIT/ML SUBCUT SCH (21:14)
[2019-05-26] MEDS: METOPROLOL TARTRATE 25 MG TABLET PO SCH (21:15)
[2019-05-26] MEDS: SIMVASTATIN 10 MG TABLET PO SCH (21:15)
[2019-05-27] MEDS ORDERED: SODIUM CHLORIDE 0.9% 500 ML IV ONE ×4 (00:30→05:57)
[2019-05-27] MEDS ORDERED: PHENYLEPHRINE DRIP 40 MG/250 ML PREMIX IV ONE (00:43)
[2019-05-27 00:45] LABS: ABG Base Excess 13.4 MMOL/L (-2.5-2.5); ABG HCO3 37.2 MMOL/L (20-26); ABG Oxygen Saturation 97.9 % (95-100); ABG PCO2 65.3 MM HG (35-48); ABG PH 7.404 (7.35-7.45); ABG PO2 90.8 MM HG (80-95); ABG TCO2 37.2 MMOL/L (23-27)
[2019-05-27] MEDS: ENOXAPARIN 40 MG/0.4 ML SYRINGE SUBCUT SCH ×2 (00:46→21:28)
[2019-05-27] MEDS: PHENYLEPHRINE DRIP 40 MG/250 ML PREMIX IV PRN ×5 (00:48→09:18)
[2019-05-27] MEDS: SODIUM CHLORIDE 0.9% 1,000 ML IV SCH ×7 (00:56→21:29)
[2019-05-27] MEDS: PIPERACILLIN/TAZOBACTAM 3,375 MG in SODIUM CHLORIDE 0.9% 100 ML IV SCH ×3 (02:48→16:53)
[2019-05-27] MEDS: NOREPINEPHRINE 8 MG in SODIUM CHLORIDE 0.9% 242 ML IV PRN ×2 (02:48→07:45)
[2019-05-27 04:40] LABS: Basophils % 0.1 % (0.0-0.8); Eosinophils # 0.2 10*3/uL (0.0-0.87); Hematocrit 31.1 VOL% (35.7-47.0); Hemoglobin 9.1 GM/DL (12.0-16.0); Immature Granulocytes % 0.8 %; Immature Granulocytes Absolute 0.08 #; Lymphocytes # 0.7 10*3/uL (1.4-4.0); Lymphocytes % 6.4 % (21.3-54.2); Mean Corpuscular HGB Conc 29.3 GM/DL (32-36); Mean Corpuscular Volume 85.2 FL (87-102); Monocytes % 14.1 % (1.7-12.7); NRBC # 0.04 10*3/uL; Neutrophils % 76.6 % (38.7-73.9); Platelet Count 127 T/CUMM (130-400); Red Blood Count 3.65 MC/CUMM (3.8-5.5); Red Cell Distribution Width 20.8 % (9.3-17.3); White Blood Count 10.4 T/CUMM (4-12)
[2019-05-27 05:15] LABS: Albumin 2.2 G/DL (3.4-5.0); Bilirubin,Total 1.1 MG/DL (0.2-1.0); Calcium 7.4 MG/DL (8.5-10.1); Osmolality,Calculated 298.6 MOS/KG (273-304); Thyroid Stimulating Hormone 1.49 uIU/ml (0.358-3.74); Total Protein 6.8 G/DL (6.4-8.3)
[2019-05-27] MEDS: LEVOTHYROXINE 50 MCG TABLET PO SCH (05:30)
[2019-05-27 06:01] LABS: Anisocytosis 1+; Hypochromasia 1+; Microcytosis 1+; Platelet Estimate Adequate
[2019-05-27 06:02] LABS: Basophilic Stippling Few; Stomatocytes Slight; Target Cells Slight
[2019-05-27 06:03] LABS: Polychromasia Slight
[2019-05-27] MEDS ORDERED: SODIUM CHLORIDE 0.9% 1,000 ML IV ONE (06:16)
[2019-05-27] MEDS ORDERED: MAGNESIUM SULF RIDER 4 GM in PREMIX 1 EACH IV PRN (08:51)
[2019-05-27] MEDS: INSULIN LISPRO 100 UNIT/ML SUBCUT SCH ×4 (09:08→21:28)
[2019-05-27] MEDS: POTASSIUM CHLORIDE 20 MEQ TABLET PO SCH (09:09)
[2019-05-27] MEDS: ASPIRIN EC 81 MG TABLET PO SCH (09:09)
[2019-05-27] MEDS: FUROSEMIDE 80 MG TABLET PO SCH ×2 (09:09→16:54)
[2019-05-27] MEDS: amLODIPine 5 MG TABLET PO SCH (09:09)
[2019-05-27] MEDS: MAGNESIUM SULF RIDER 2 GM in PREMIX 1 EACH IV PRN ×2 (09:23→11:19)
[2019-05-27] MEDS: METOPROLOL TARTRATE 25 MG TABLET PO SCH ×2 (10:09→21:28)
[2019-05-27] MEDS: PREGABALIN 75 MG CAPSULE PO SCH ×2 (10:09→21:29)
[2019-05-27] MEDS: FLUTICASONE 50 MCG NASAL SPRAY 16 GM BOTTLE BOTH NARES SCH (10:10)
[2019-05-27] MEDS: PANTOPRAZOLE 40 MG TABLET PO SCH (10:10)
[2019-05-27] MEDS: PHENYLEPHRINE INJ 160 MG in SODIUM CHLORIDE 0.9% 234 ML IV PRN ×2 (11:01→18:09)
[2019-05-27] MEDS ORDERED: methylPREDNISolone SOD SUC 40 MG/1 ML VIAL IV ONE (11:11)
[2019-05-27] MEDS: NOREPINEPHRINE 16 MG in SODIUM CHLORIDE 0.9% 234 ML IV PRN ×2 (11:20→17:58)
[2019-05-27] MEDS ORDERED: CALCIUM GLUCONATE 1,000 MG in SODIUM CHLORIDE 0.9% 100 ML IV ONE (11:59)
[2019-05-27 12:31] LABS: ABG Base Excess 1.5 MMOL/L (-2.5-2.5); ABG HCO3 25.8 MMOL/L (20-26); ABG Oxygen Saturation 99.7 % (95-100); ABG PCO2 62.6 MM HG (35-48); ABG PH 7.282 (7.35-7.45); ABG TCO2 27.2 MMOL/L (23-27)
[2019-05-27 12:49] LABS: Calcium 6.5 MG/DL (8.5-10.1); Osmolality,Calculated 301.7 MOS/KG (273-304)
[2019-05-27] MEDS: methylPREDNISolone SOD SUC 125 MG/2 ML VIAL IV SCH ×2 (14:30→21:29)
[2019-05-27 14:47] VITALS: BP 86/52
[2019-05-27] MEDS ORDERED: CALCIUM GLUCONATE 2,000 MG in SODIUM CHLORIDE 0.9% 100 ML IV ONE (17:13)
[2019-05-27] MEDS: SIMVASTATIN 10 MG TABLET PO SCH (21:29)
[2019-05-28] MEDS: PIPERACILLIN/TAZOBACTAM 3,375 MG in SODIUM CHLORIDE 0.9% 100 ML IV SCH ×2 (01:14→09:06)
[2019-05-28] MEDS: PHENYLEPHRINE INJ 160 MG in SODIUM CHLORIDE 0.9% 234 ML IV PRN ×2 (01:15→08:42)
[2019-05-28] MEDS: SODIUM CHLORIDE 0.9% 1,000 ML IV SCH ×5 (01:15→15:49)
[2019-05-28] MEDS: NOREPINEPHRINE 16 MG in SODIUM CHLORIDE 0.9% 234 ML IV PRN ×3 (01:16→17:33)
[2019-05-28 04:22] LABS: Albumin 1.7 G/DL (3.4-5.0); Bilirubin,Total 0.6 MG/DL (0.2-1.0); Calcium 6.3 MG/DL (8.5-10.1); Osmolality,Calculated 306.8 MOS/KG (273-304); Total Protein 6.1 G/DL (6.4-8.3)
[2019-05-28] MEDS: LEVOTHYROXINE 50 MCG TABLET PO SCH (05:15)
[2019-05-28 05:17] LABS: Basophils % 0.1 % (0.0-0.8); Eosinophils # 0.1 10*3/uL (0.0-0.87); Hematocrit 31.9 VOL% (35.7-47.0); Hemoglobin 9.2 GM/DL (12.0-16.0); Immature Granulocytes % 0.7 %; Immature Granulocytes Absolute 0.08 #; Lymphocytes # 1.3 10*3/uL (1.4-4.0); Lymphocytes % 11.8 % (21.3-54.2); Mean Corpuscular HGB Conc 28.8 GM/DL (32-36); Mean Corpuscular Volume 86.4 FL (87-102); Mean Platelet Volume 10.7 FL (9.6-12.0); Monocytes % 13.4 % (1.7-12.7); NRBC # 0.02 10*3/uL; Platelet Count 138 T/CUMM (130-400); Red Blood Count 3.69 MC/CUMM (3.8-5.5); Red Cell Distribution Width 20.6 % (9.3-17.3); White Blood Count 11.1 T/CUMM (4-12)
[2019-05-28 06:18] LABS: Anisocytosis 1+; Band Neutrophils 9 % (0-10); Hypochromasia 1+; Lymphocytes 6 % (20-55); Platelet Estimate Adequate; Polychromasia 1+; Segmented Neutrophils 79 % (50-85); Total Cells Counted 100
[2019-05-28] MEDS ORDERED: CALCIUM GLUCONATE 2,000 MG in SODIUM CHLORIDE 0.9% 100 ML IV ONE (09:07)
[2019-05-28] MEDS: methylPREDNISolone SOD SUC 125 MG/2 ML VIAL IV SCH ×3 (09:08→21:08)
[2019-05-28] MEDS: ASPIRIN EC 81 MG TABLET PO SCH (09:29)
[2019-05-28] MEDS: PREGABALIN 75 MG CAPSULE PO SCH ×2 (09:30→20:49)
[2019-05-28] MEDS ORDERED: ALBUMIN 25% 25 GM in PREMIX 1 EACH IV ONE (09:30)
[2019-05-28] MEDS: PANTOPRAZOLE 40 MG TABLET PO SCH (09:30)
[2019-05-28] MEDS: METOPROLOL TARTRATE 25 MG TABLET PO SCH ×2 (09:30→20:44)
[2019-05-28] MEDS: POTASSIUM CHLORIDE 20 MEQ TABLET PO SCH (09:31)
[2019-05-28] MEDS: amLODIPine 5 MG TABLET PO SCH (09:31)
[2019-05-28] MEDS: FUROSEMIDE 80 MG TABLET PO SCH ×2 (09:31→17:35)
[2019-05-28] MEDS: INSULIN LISPRO 100 UNIT/ML SUBCUT SCH ×4 (10:51→21:08)
[2019-05-28] MEDS: FLUTICASONE 50 MCG NASAL SPRAY 16 GM BOTTLE BOTH NARES SCH (10:51)
[2019-05-28] MEDS: MEROPENEM 500 MG in SODIUM CHLORIDE 0.9% 100 ML IV SCH (16:06)
[2019-05-28] MEDS ORDERED: CALCIUM CARBONATE CHEW 500 MG TABLET PO PRN (17:57)
[2019-05-28] MEDS: MENTHOL/ZINC OXIDE OINT 71 GM JAR TOP SCH (20:49)
[2019-05-28] MEDS: SIMVASTATIN 10 MG TABLET PO SCH (20:50)
[2019-05-28] MEDS ORDERED: ENOXAPARIN 30 MG/0.3 ML SYRINGE SUBCUT ONE (21:00)
[2019-05-29] MEDS: SODIUM CHLORIDE 0.9% 1,000 ML IV SCH ×2 (00:57→01:30)
[2019-05-29] MEDS: MEROPENEM 500 MG in SODIUM CHLORIDE 0.9% 100 ML IV SCH ×3 (01:24→15:11)
[2019-05-29 04:49] LABS: Eosinophils # 0.1 10*3/uL (0.0-0.87); Eosinophils % 1.8 % (0.00-10.9); Hematocrit 25.3 VOL% (35.7-47.0); Hemoglobin 7.2 GM/DL (12.0-16.0); Immature Granulocytes % 5.6 %; Immature Granulocytes Absolute 0.32 #; Lymphocytes # 0.7 10*3/uL (1.4-4.0); Lymphocytes % 11.8 % (21.3-54.2); Mean Corpuscular HGB Conc 28.5 GM/DL (32-36); Mean Corpuscular Volume 87.5 FL (87-102); Mean Platelet Volume 11.4 FL (9.6-12.0); Monocytes % 14.9 % (1.7-12.7); NRBC # 0.05 10*3/uL; Neutrophils % 65.9 % (38.7-73.9); Platelet Count 84 T/CUMM (130-400); Red Blood Count 2.89 MC/CUMM (3.8-5.5); Red Cell Distribution Width 21.1 % (9.3-17.3); White Blood Count 5.7 T/CUMM (4-12)
[2019-05-29 05:11] LABS: Albumin 2.2 G/DL (3.4-5.0); Bilirubin,Total 0.5 MG/DL (0.2-1.0); Calcium 6.6 MG/DL (8.5-10.1); Osmolality,Calculated 308.4 MOS/KG (273-304); Total Protein 6.1 G/DL (6.4-8.3)
[2019-05-29 05:24] LABS: Band Neutrophils 1 % (0-10); Lymphocytes 10 % (20-55); Nucleated Red Blood Cells 1 (0-5); Platelet Estimate Decreased; Segmented Neutrophils 82 % (50-85); Total Cells Counted 100
[2019-05-29 05:25] LABS: Hypochromasia 2+; Ovalocytes Slight
[2019-05-29] MEDS: LEVOTHYROXINE 50 MCG TABLET PO SCH ×2 (05:32→08:54)
[2019-05-29] MEDS ORDERED: ALBUMIN 25% 25 GM in PREMIX 1 EACH IV ONE (07:53)
[2019-05-29] MEDS ORDERED: CALCIUM (CARBONATE)/VITAMIN D 600 MG-400 UNIT TABLET PO SCH (08:00)
[2019-05-29] MEDS ORDERED: CYANOCOBALAMIN 500 MCG TABLET PO SCH (08:00)
[2019-05-29] MEDS: INSULIN LISPRO 100 UNIT/ML SUBCUT SCH ×3 (08:00→16:27)
[2019-05-29] MEDS ORDERED: LACTOBACILLUS ACIDOPHILUS/BULGARICUS CAPLET PO SCH (08:00)
[2019-05-29] MEDS: methylPREDNISolone SOD SUC 125 MG/2 ML VIAL IV SCH ×2 (08:47→15:10)
[2019-05-29] MEDS: ASPIRIN EC 81 MG TABLET PO SCH (08:54)
[2019-05-29] MEDS ORDERED: CALCIUM CARBONATE CHEW 500 MG TABLET PO SCH (09:00)
[2019-05-29] MEDS ORDERED: CALCIUM GLUCONATE 2,000 MG in SODIUM CHLORIDE 0.9% 100 ML IV ONE (09:00)
[2019-05-29] MEDS: MENTHOL/ZINC OXIDE OINT 71 GM JAR TOP SCH (09:06)
[2019-05-29] MEDS: FLUTICASONE 50 MCG NASAL SPRAY 16 GM BOTTLE BOTH NARES SCH (09:07)
[2019-05-29] MEDS: FUROSEMIDE 80 MG TABLET PO SCH (09:39)
[2019-05-29] MEDS: POTASSIUM CHLORIDE 20 MEQ TABLET PO SCH (09:39)
[2019-05-29] MEDS: LACTATED RINGERS 1,000 ML IV SCH ×2 (09:43→18:05)
[2019-05-29] MEDS: amLODIPine 5 MG TABLET PO SCH (09:48)
[2019-05-29] MEDS ORDERED: INFLUENZA VIRUS VACCINE 0.5 ML SYRINGE IM ONE (14:16)
[2019-05-29] MEDS ORDERED: PNEUMOCOCCAL VACCINE (13 VALENT) 0.5 ML SYRINGE IM ONE (14:17)
[2019-05-29] MEDS ORDERED: INSULIN GLARGINE 100 UNIT/ML SUBCUT SCH (21:00)
== END 2019-05-29 20:05 | DRG 871 ==
LOC: EDUNIT# → EDBD → N.ED 11:59 → N.EDINP 16:44 → N.5E 18:18 → N.ICU 19:31
PROVIDERS: ADMIT Family Medicine; ATTEND Family Medicine

== ENCOUNTER 2019-08-15 07:10 | Inpatient (IN) ==
[2019-08-15] MEDS ORDERED: SODIUM CHLORIDE 0.9% 1,000 ML IV STA ×2 (07:35→07:54)
[2019-08-15 08:54] LABS: Basophils % 0.5 % (0.0-0.8); Eosinophils # 0.2 10*3/uL (0.0-0.87); Eosinophils % 3.3 % (0.00-10.9); Hematocrit 39.3 VOL% (35.7-47.0); Hemoglobin 12.1 GM/DL (12.0-16.0); Immature Granulocytes % 0.5 %; Immature Granulocytes Absolute 0.03 #; Lymphocytes % 17.5 % (21.3-54.2); Mean Corpuscular HGB Conc 30.8 GM/DL (32-36); Mean Corpuscular Volume 88.9 FL (87-102); Mean Platelet Volume 10.2 FL (9.6-12.0); Monocytes % 8.4 % (1.7-12.7); Neutrophils % 69.8 % (38.7-73.9); Platelet Count 162 T/CUMM (130-400); Red Blood Count 4.42 MC/CUMM (3.8-5.5); Red Cell Distribution Width 19.5 % (9.3-17.3); White Blood Count 5.7 T/CUMM (4-12)
[2019-08-15 09:09] LABS: Albumin 2.4 G/DL (3.4-5.0); Bilirubin,Total 0.6 MG/DL (0.2-1.0); Calcium 8.8 MG/DL (8.5-10.1); Osmolality,Calculated 307.2 MOS/KG (273-304); Total Protein 5.9 G/DL (6.4-8.3)
[2019-08-15] MEDS ORDERED: ACETAMINOPHEN 325 MG TABLET PO PRN (10:46)
[2019-08-15] MEDS ORDERED: ONDANSETRON 4 MG/2 ML VIAL IV PRN (10:46)
[2019-08-15] MEDS ORDERED: LACTULOSE 20 GM/30 ML UDCUP PO PRN (10:46)
[2019-08-15] MEDS ORDERED: GLUCAGON 1 MG VIAL IM PRN (10:46)
[2019-08-15] MEDS ORDERED: DEXTROSE 50% 25 GM/50 ML VIAL IV PRN (10:46)
[2019-08-15 11:14] LABS: Risk Ratio 2.24; Thyroid Stimulating Hormone 2.14 uIU/ml (0.358-3.74); VLDL CHOLESTEROL 21.8 MG/DL
[2019-08-15] MEDS: INSULIN LISPRO 100 UNIT/ML SUBCUT SCH ×3 (12:14→20:15)
[2019-08-15 12:31] LABS: Apearance,Urine CLOUDY (Clear); Bilirubin,Urine Negative (Negative); Blood, Urine Small mg/dL (Negative); Glucose,Urine (UA) Negative (Negative); Ketones,Urine Negative (Negative); Nitrite,Urine Negative (Negative); Protein,Urine 100 MG/DL; RBC,Urine 58 /HPF (0-4); Urine Color Yellow (Yellow); Urine Specific Gravity 1.013 (1.001-1.035); Urine Urobilinogen < 2.0 EU/DL (0.2-1.0); WBC,Urine 1086 /HPF (0-6)
[2019-08-15] MEDS: ENOXAPARIN 30 MG/0.3 ML SYRINGE SUBCUT SCH (12:52)
[2019-08-15] MEDS: SODIUM CHLORIDE 0.9% 1,000 ML IV SCH ×2 (12:52→16:30)
[2019-08-15] MEDS ORDERED: NOREPINEPHRINE 4 MG/4 ML VIAL IV ONE (13:54)
[2019-08-15] MEDS: NOREPINEPHRINE 8 MG in SODIUM CHLORIDE 0.9% 242 ML IV PRN (13:58)
[2019-08-15] MEDS ORDERED: DOCUSATE SODIUM 100 MG CAPSULE PO PRN (14:46)
[2019-08-15] MEDS ORDERED: cefTRIAXone 1,000 MG in SYRINGE 1 EACH IV SCH (15:30)
[2019-08-15] MEDS: ATORVASTATIN 10 MG TABLET PO SCH (21:37)
[2019-08-15] MEDS: CALCIUM CARBONATE CHEW 500 MG TABLET PO PRN (21:49)
[2019-08-16] MEDS: SODIUM CHLORIDE 0.9% 1,000 ML IV SCH ×3 (01:37→21:39)
[2019-08-16] MEDS: LEVOTHYROXINE 50 MCG TABLET PO SCH (06:04)
[2019-08-16 07:28] LABS: Basophils % 0.3 % (0.0-0.8); Eosinophils # 0.1 10*3/uL (0.0-0.87); Hematocrit 36.8 VOL% (35.7-47.0); Hemoglobin 11.5 GM/DL (12.0-16.0); Immature Granulocytes % 0.4 %; Immature Granulocytes Absolute 0.05 #; Lymphocytes # 0.5 10*3/uL (1.4-4.0); Lymphocytes % 4.2 % (21.3-54.2); Mean Corpuscular HGB Conc 31.3 GM/DL (32-36); Mean Platelet Volume 11.1 FL (9.6-12.0); Monocytes % 4.1 % (1.7-12.7); Platelet Count 161 T/CUMM (130-400); Red Blood Count 4.18 MC/CUMM (3.8-5.5); Red Cell Distribution Width 19.7 % (9.3-17.3); White Blood Count 11.9 T/CUMM (4-12)
[2019-08-16 07:46] LABS: Albumin 2.2 G/DL (3.4-5.0); Bilirubin,Total 0.5 MG/DL (0.2-1.0); Osmolality,Calculated 315.8 MOS/KG (273-304); Total Protein 5.3 G/DL (6.4-8.3)
[2019-08-16 07:48] LABS: Eosinophils 1 % (0-10); Hypochromasia 1+; Lymphocytes 4 % (20-55); Platelet Estimate Adequate; Segmented Neutrophils 92 % (50-85); Total Cells Counted 100
[2019-08-16] MEDS: INSULIN LISPRO 100 UNIT/ML SUBCUT SCH ×4 (08:16→21:48)
[2019-08-16] MEDS: CYANOCOBALAMIN 500 MCG TABLET PO SCH (09:20)
[2019-08-16] MEDS: CALCIUM (CARBONATE)/VITAMIN D 500 MG-200 UNIT TABLET PO SCH (09:20)
[2019-08-16] MEDS: ASPIRIN EC 81 MG TABLET PO SCH (09:20)
[2019-08-16] MEDS: FLUTICASONE 50 MCG NASAL SPRAY 16 GM BOTTLE BOTH NARES SCH (09:23)
[2019-08-16] MEDS: PANTOPRAZOLE 40 MG TABLET PO SCH (09:23)
[2019-08-16] MEDS: ENOXAPARIN 30 MG/0.3 ML SYRINGE SUBCUT SCH (11:43)
[2019-08-16] MEDS ORDERED: SODIUM CHLORIDE 0.9% 1,000 ML IV ONE (13:52)
[2019-08-16] MEDS: NOREPINEPHRINE 8 MG in SODIUM CHLORIDE 0.9% 242 ML IV PRN (14:57)
[2019-08-16] MEDS: cefTRIAXone 2,000 MG in SYRINGE 1 EACH IV SCH (15:49)
[2019-08-16] MEDS: DESITIN 4OZ/NYSTATIN 15 GRAM MIXTURE PASTE TOP SCH ×2 (17:12→21:48)
[2019-08-16 19:25] LABS: Protein/Creatinine Ratio,Urine 0.7 RATIO
[2019-08-16] MEDS: INSULIN GLARGINE 100 UNIT/ML SUBCUT SCH (21:48)
[2019-08-16] MEDS: ATORVASTATIN 10 MG TABLET PO SCH (21:48)
[2019-08-16] MEDS: NYSTATIN POWDER 15 GM BOTTLE TOP SCH (21:48)
[2019-08-17] MEDS: SODIUM CHLORIDE 0.9% 1,000 ML IV SCH ×6 (00:26→20:50)
[2019-08-17 05:08] LABS: Basophils % 0.3 % (0.0-0.8); Eosinophils # 0.1 10*3/uL (0.0-0.87); Eosinophils % 0.8 % (0.00-10.9); Hematocrit 37.7 VOL% (35.7-47.0); Hemoglobin 11.9 GM/DL (12.0-16.0); Immature Granulocytes % 0.3 %; Immature Granulocytes Absolute 0.03 #; Lymphocytes # 1.1 10*3/uL (1.4-4.0); Lymphocytes % 11.8 % (21.3-54.2); Mean Corpuscular HGB Conc 31.6 GM/DL (32-36); Mean Corpuscular Volume 87.7 FL (87-102); Mean Platelet Volume 11.2 FL (9.6-12.0); Monocytes % 5.7 % (1.7-12.7); Neutrophils % 81.1 % (38.7-73.9); Platelet Count 194 T/CUMM (130-400); Red Cell Distribution Width 19.9 % (9.3-17.3); White Blood Count 9.2 T/CUMM (4-12)
[2019-08-17 05:29] LABS: Albumin 2.2 G/DL (3.4-5.0); Calcium 7.9 MG/DL (8.5-10.1); Osmolality,Calculated 313.8 MOS/KG (273-304); Total Protein 5.6 G/DL (6.4-8.3)
[2019-08-17] MEDS: LEVOTHYROXINE 50 MCG TABLET PO SCH (06:37)
[2019-08-17] MEDS: INSULIN LISPRO 100 UNIT/ML SUBCUT SCH ×4 (07:47→20:21)
[2019-08-17] MEDS: NOREPINEPHRINE 8 MG in SODIUM CHLORIDE 0.9% 242 ML IV PRN (09:46)
[2019-08-17] MEDS: CALCIUM (CARBONATE)/VITAMIN D 500 MG-200 UNIT TABLET PO SCH (09:52)
[2019-08-17] MEDS: CYANOCOBALAMIN 500 MCG TABLET PO SCH (09:53)
[2019-08-17] MEDS: FLUTICASONE 50 MCG NASAL SPRAY 16 GM BOTTLE BOTH NARES SCH (09:53)
[2019-08-17] MEDS: ASPIRIN EC 81 MG TABLET PO SCH (09:53)
[2019-08-17] MEDS: INSULIN GLARGINE 100 UNIT/ML SUBCUT SCH ×2 (09:53→20:20)
[2019-08-17] MEDS: DESITIN 4OZ/NYSTATIN 15 GRAM MIXTURE PASTE TOP SCH ×2 (09:55→20:21)
[2019-08-17] MEDS: NYSTATIN POWDER 15 GM BOTTLE TOP SCH ×3 (09:56→20:21)
[2019-08-17] MEDS: PANTOPRAZOLE 40 MG TABLET PO SCH (10:46)
[2019-08-17] MEDS ORDERED: LANSOPRAZOLE 3 MG/ML 90 ML/BOTTLE NG SCH (11:00)
[2019-08-17] MEDS: ENOXAPARIN 30 MG/0.3 ML SYRINGE SUBCUT SCH (12:06)
[2019-08-17] MEDS: OMEPRAZOLE ODT 20 MG TABLET NG SCH (12:08)
[2019-08-17] MEDS: cefTRIAXone 2,000 MG in SYRINGE 1 EACH IV SCH (15:40)
[2019-08-17] MEDS: ATORVASTATIN 10 MG TABLET PO SCH (20:20)
[2019-08-18] MEDS: SODIUM CHLORIDE 0.9% 1,000 ML IV SCH ×2 (06:11→06:45)
[2019-08-18] MEDS: LEVOTHYROXINE 50 MCG TABLET PO SCH (06:11)
[2019-08-18 06:25] LABS: Basophils % 0.3 % (0.0-0.8); Eosinophils # 0.2 10*3/uL (0.0-0.87); Hematocrit 33.5 VOL% (35.7-47.0); Hemoglobin 10.4 GM/DL (12.0-16.0); Immature Granulocytes % 0.6 %; Immature Granulocytes Absolute 0.04 #; Lymphocytes % 16.3 % (21.3-54.2); Mean Corpuscular Volume 89.8 FL (87-102); Mean Platelet Volume 11.2 FL (9.6-12.0); Monocytes % 6.4 % (1.7-12.7); Neutrophils % 73.4 % (38.7-73.9); Platelet Count 129 T/CUMM (130-400); Red Blood Count 3.73 MC/CUMM (3.8-5.5); Red Cell Distribution Width 19.9 % (9.3-17.3); White Blood Count 6.4 T/CUMM (4-12)
[2019-08-18 06:41] LABS: Albumin 1.9 G/DL (3.4-5.0); Bilirubin,Total 0.4 MG/DL (0.2-1.0); Calcium 7.3 MG/DL (8.5-10.1); Osmolality,Calculated 314.4 MOS/KG (273-304)
[2019-08-18] MEDS: INSULIN LISPRO 100 UNIT/ML SUBCUT SCH ×4 (08:35→20:26)
[2019-08-18] MEDS: INSULIN GLARGINE 100 UNIT/ML SUBCUT SCH ×2 (09:33→20:37)
[2019-08-18] MEDS: OMEPRAZOLE ODT 20 MG TABLET NG SCH (09:33)
[2019-08-18] MEDS: ASPIRIN EC 81 MG TABLET PO SCH (09:33)
[2019-08-18] MEDS: CALCIUM (CARBONATE)/VITAMIN D 500 MG-200 UNIT TABLET PO SCH (09:33)
[2019-08-18] MEDS: CYANOCOBALAMIN 500 MCG TABLET PO SCH (09:33)
[2019-08-18] MEDS: FLUTICASONE 50 MCG NASAL SPRAY 16 GM BOTTLE BOTH NARES SCH (09:34)
[2019-08-18] MEDS: DESITIN 4OZ/NYSTATIN 15 GRAM MIXTURE PASTE TOP SCH ×2 (09:34→20:27)
[2019-08-18] MEDS: NYSTATIN POWDER 15 GM BOTTLE TOP SCH ×3 (09:34→20:27)
[2019-08-18] MEDS: LACTATED RINGERS 1,000 ML IV SCH ×3 (09:37→21:49)
[2019-08-18] MEDS: ENOXAPARIN 30 MG/0.3 ML SYRINGE SUBCUT SCH (13:00)
[2019-08-18] MEDS ORDERED: LACTATED RINGERS 500 ML IV ONE (14:04)
[2019-08-18] MEDS: cefTRIAXone 2,000 MG in SYRINGE 1 EACH IV SCH (14:32)
[2019-08-18] MEDS: ATORVASTATIN 10 MG TABLET PO SCH (20:26)
[2019-08-19] MEDS: LACTATED RINGERS 1,000 ML IV SCH ×3 (04:03→17:27)
[2019-08-19] MEDS: LEVOTHYROXINE 50 MCG TABLET PO SCH (06:33)
[2019-08-19 06:47] LABS: Basophils % 0.2 % (0.0-0.8); Eosinophils # 0.2 10*3/uL (0.0-0.87); Hematocrit 32.7 VOL% (35.7-47.0); Hemoglobin 10.2 GM/DL (12.0-16.0); Immature Granulocytes % 0.7 %; Immature Granulocytes Absolute 0.04 #; Mean Corpuscular HGB Conc 31.2 GM/DL (32-36); Mean Corpuscular Volume 87.9 FL (87-102); Mean Platelet Volume 11.7 FL (9.6-12.0); Monocytes % 7.2 % (1.7-12.7); Neutrophils % 70.9 % (38.7-73.9); Platelet Count 134 T/CUMM (130-400); Red Blood Count 3.72 MC/CUMM (3.8-5.5); Red Cell Distribution Width 19.7 % (9.3-17.3); White Blood Count 5.8 T/CUMM (4-12)
[2019-08-19 07:13] LABS: Calcium 7.4 MG/DL (8.5-10.1); Osmolality,Calculated 300.7 MOS/KG (273-304)
[2019-08-19] MEDS: INSULIN LISPRO 100 UNIT/ML SUBCUT SCH ×4 (08:09→21:37)
[2019-08-19] MEDS: ASPIRIN EC 81 MG TABLET PO SCH (09:25)
[2019-08-19] MEDS: CALCIUM (CARBONATE)/VITAMIN D 500 MG-200 UNIT TABLET PO SCH (09:25)
[2019-08-19] MEDS: OMEPRAZOLE ODT 20 MG TABLET NG SCH (09:25)
[2019-08-19] MEDS: NYSTATIN POWDER 15 GM BOTTLE TOP SCH ×3 (09:26→21:40)
[2019-08-19] MEDS: DESITIN 4OZ/NYSTATIN 15 GRAM MIXTURE PASTE TOP SCH ×2 (09:26→21:41)
[2019-08-19] MEDS: FLUTICASONE 50 MCG NASAL SPRAY 16 GM BOTTLE BOTH NARES SCH (09:26)
[2019-08-19] MEDS: CYANOCOBALAMIN 500 MCG TABLET PO SCH (09:28)
[2019-08-19] MEDS: INSULIN GLARGINE 100 UNIT/ML SUBCUT SCH ×2 (09:30→21:38)
[2019-08-19] MEDS: ENOXAPARIN 30 MG/0.3 ML SYRINGE SUBCUT SCH (12:48)
[2019-08-19] MEDS: cefTRIAXone 2,000 MG in SYRINGE 1 EACH IV SCH (14:47)
[2019-08-19] MEDS: ATORVASTATIN 10 MG TABLET PO SCH ×2 (21:34→21:57)
[2019-08-20] MEDS: LACTATED RINGERS 1,000 ML IV SCH ×4 (03:47→23:15)
[2019-08-20] MEDS: LEVOTHYROXINE 50 MCG TABLET PO SCH (06:07)
[2019-08-20] MEDS: INSULIN GLARGINE 100 UNIT/ML SUBCUT SCH (07:24)
[2019-08-20] MEDS: INSULIN LISPRO 100 UNIT/ML SUBCUT SCH ×4 (07:24→20:19)
[2019-08-20] MEDS: CALCIUM (CARBONATE)/VITAMIN D 500 MG-200 UNIT TABLET PO SCH (08:57)
[2019-08-20] MEDS: DESITIN 4OZ/NYSTATIN 15 GRAM MIXTURE PASTE TOP SCH ×2 (08:57→20:29)
[2019-08-20] MEDS: ASPIRIN EC 81 MG TABLET PO SCH (08:57)
[2019-08-20] MEDS: NYSTATIN POWDER 15 GM BOTTLE TOP SCH ×3 (08:57→20:30)
[2019-08-20] MEDS: FLUTICASONE 50 MCG NASAL SPRAY 16 GM BOTTLE BOTH NARES SCH (08:57)
[2019-08-20] MEDS: CYANOCOBALAMIN 500 MCG TABLET PO SCH (08:57)
[2019-08-20] MEDS: OMEPRAZOLE ODT 20 MG TABLET NG SCH (08:57)
[2019-08-20] MEDS: ENOXAPARIN 30 MG/0.3 ML SYRINGE SUBCUT SCH (11:55)
[2019-08-20] MEDS: ERTAPENEM 1,000 MG in SODIUM CHLORIDE 0.9% 100 ML IV SCH (14:48)
[2019-08-20] MEDS: ATORVASTATIN 10 MG TABLET PO SCH (20:28)
[2019-08-21] MEDS: LEVOTHYROXINE 50 MCG TABLET PO SCH (05:32)
[2019-08-21] MEDS: LACTATED RINGERS 1,000 ML IV SCH ×2 (05:33→14:58)
[2019-08-21 08:57] LABS: Basophils % 0.3 % (0.0-0.8); Eosinophils # 0.1 10*3/uL (0.0-0.87); Eosinophils % 2.1 % (0.00-10.9); Hematocrit 32.7 VOL% (35.7-47.0); Immature Granulocytes % 0.5 %; Immature Granulocytes Absolute 0.03 #; Lymphocytes # 1.3 10*3/uL (1.4-4.0); Lymphocytes % 23.1 % (21.3-54.2); Mean Corpuscular HGB Conc 30.6 GM/DL (32-36); Mean Corpuscular Volume 89.6 FL (87-102); Mean Platelet Volume 12.1 FL (9.6-12.0); Monocytes % 10.5 % (1.7-12.7); Neutrophils % 63.5 % (38.7-73.9); Platelet Count 139 T/CUMM (130-400); Red Blood Count 3.65 MC/CUMM (3.8-5.5); Red Cell Distribution Width 20.1 % (9.3-17.3); White Blood Count 5.8 T/CUMM (4-12)
[2019-08-21 09:22] LABS: Calcium 7.4 MG/DL (8.5-10.1); Osmolality,Calculated 293.3 MOS/KG (273-304)
[2019-08-21 09:25] LABS: Albumin 1.8 G/DL (3.4-5.0); Bilirubin,Direct 0.18 MG/DL (0.0-0.20); Bilirubin,Indirect 0.3 MG/DL (0.0-1.0); Bilirubin,Total 0.5 MG/DL (0.2-1.0); Total Protein 4.4 G/DL (6.4-8.3)
[2019-08-21] MEDS: CALCIUM (CARBONATE)/VITAMIN D 500 MG-200 UNIT TABLET PO SCH (10:13)
[2019-08-21] MEDS: INSULIN LISPRO 100 UNIT/ML SUBCUT SCH ×4 (10:13→20:44)
[2019-08-21] MEDS: ASPIRIN EC 81 MG TABLET PO SCH (10:13)
[2019-08-21] MEDS: CYANOCOBALAMIN 500 MCG TABLET PO SCH (10:14)
[2019-08-21] MEDS: CALCIUM CARBONATE CHEW 500 MG TABLET PO PRN (10:14)
[2019-08-21] MEDS: NYSTATIN POWDER 15 GM BOTTLE TOP SCH ×6 (10:14→20:44)
[2019-08-21] MEDS: OMEPRAZOLE ODT 20 MG TABLET NG SCH (10:14)
[2019-08-21] MEDS: MOISTURIZING CREAM (EUCERIN) 106 GM JAR TOP SCH ×4 (10:14→20:43)
[2019-08-21] MEDS: DESITIN 4OZ/NYSTATIN 15 GRAM MIXTURE PASTE TOP SCH ×2 (10:15→20:43)
[2019-08-21] MEDS: ENOXAPARIN 30 MG/0.3 ML SYRINGE SUBCUT SCH (12:49)
[2019-08-21] MEDS: FLUTICASONE 50 MCG NASAL SPRAY 16 GM BOTTLE BOTH NARES SCH (12:51)
[2019-08-21] MEDS: ERTAPENEM 1,000 MG in SODIUM CHLORIDE 0.9% 100 ML IV SCH (14:56)
[2019-08-21] MEDS: ATORVASTATIN 10 MG TABLET PO SCH (20:46)
[2019-08-22] MEDS: LACTATED RINGERS 1,000 ML IV SCH (02:57)
[2019-08-22] MEDS: LEVOTHYROXINE 50 MCG TABLET PO SCH (05:55)
[2019-08-22] MEDS: INSULIN LISPRO 100 UNIT/ML SUBCUT SCH ×2 (08:26→12:04)
[2019-08-22] MEDS: ASPIRIN EC 81 MG TABLET PO SCH (08:30)
[2019-08-22] MEDS: OMEPRAZOLE ODT 20 MG TABLET NG SCH (08:30)
[2019-08-22] MEDS: CALCIUM (CARBONATE)/VITAMIN D 500 MG-200 UNIT TABLET PO SCH (08:30)
[2019-08-22] MEDS: DESITIN 4OZ/NYSTATIN 15 GRAM MIXTURE PASTE TOP SCH (08:31)
[2019-08-22] MEDS: NYSTATIN POWDER 15 GM BOTTLE TOP SCH ×2 (08:31→08:32)
[2019-08-22] MEDS: CYANOCOBALAMIN 500 MCG TABLET PO SCH (08:31)
[2019-08-22] MEDS: MOISTURIZING CREAM (EUCERIN) 106 GM JAR TOP SCH ×2 (08:32→12:11)
[2019-08-22] MEDS: FLUTICASONE 50 MCG NASAL SPRAY 16 GM BOTTLE BOTH NARES SCH (08:32)
[2019-08-22] MEDS ORDERED: MIDODRINE 2.5 MG TABLET PO SCH (09:00)
[2019-08-22] MEDS ORDERED: ASCORBIC ACID 500 MG TABLET PO SCH (09:00)
[2019-08-22] MEDS ORDERED: ZINC SULFATE 220 MG CAPSULE PO SCH (09:00)
[2019-08-22] MEDS ORDERED: MULTIVITAMIN (BEROCCA) TABLET PO SCH (09:00)
[2019-08-22 11:47] VITALS: BP 121/60
[2019-08-22] MEDS: ENOXAPARIN 30 MG/0.3 ML SYRINGE SUBCUT SCH (12:09)
== END 2019-08-22 13:26 | disposition hospice, inpatient (51) | DRG 871 ==
LOC: EDUNIT# → N.ED 07:10 → N.EDINP 10:46 → SUATTDRO 10:46 → N.ICU 11:15 → N.5E 08-18 17:13
PROVIDERS: ADMIT Hospitalist; ATTEND Internal Medicine